=== PATIENT | male | born 1985 | race Caucasian/White ===

== ENCOUNTER 2024-08-21 07:44 | Outpatient (CLI) | payer OTHER, SELFPAY ==
--- OUTSIDE RECORDS SUMMARY | 2024-08-21 07:47 | XMS_ITS | Encounter Summary ---
Author Organization [place] [address] Care Team Providers Care Cook Cashier Food Prep Name Role Phone August England MD Primary Care Provider Reason for Visit * Reason Comments Medication Refill Encounter Details Date Type Department Care Team (Late st Contact Info) Description 07/09/2022 Refill SEP [facility] [address] [facility] [place] [address] August England MD [address] [place] [address] Medication Refill Social History Tobacco Use Types Packs/Day Years Used Date Smoking Tobacco: Never Smokeless Tobacco: Never Alcohol Use Standard Drinks/Week Comments No 0 (1 standard drink = 0.6 oz pur e alcohol) occasional PHQ-2 Answer Date Recorded PHQ-2 Total Score 0 10/25/2021 Sexually Active Control Partners Comments Yes Female Sex and Gender Information Value Date Recorded Sex Assigned at Not on file Legal Sex Male 6:04 PM EDT Gender Identity Not on file Sexual Orientation Not on file documented as of this encounter Functional Status * Is the person deaf or does he/she have serious difficulty hearing? Answer Date of Assessment Author No 10/25/2021 8:56 AM Ar Cano MA * Is the person blind or does he/she have serious difficulty seeing even when wearing glasses? Answer Date of Assessment Author No 10/25/2021 8:56 AM Ar Cano MA * Does this person have serious difficulty walking or climbing stairs? Answer Date of Assessment Author No 10/25/2021 8:56 AM Ar Cano MA * Does this person have difficulty dressing or bathing? Answer Date of Assessment Author No 10/25/2021 8:56 AM Ar Cano MA * Because of a physical, mental or emotional condition, does this person have difficulty doing errands alone such as visiting a doctor's office or shopping? Answer Date of Assessment Author No 10/25/2021 8:56 AM Ar Cano MA documented as of this encounter Mental Status * Because of a physical, mental or emotional condition, does this person have serious difficulty concentrating, remembering or making decisions? Answer Entry Date Author No 10/25/2021 8:56 AM Ar Cano MA documented in this encounter Ordered Prescriptions Prescription Sig Dispense Quantity Refills Last Filled Start Date End Date albuterol (PROVENTIL HFA;VENTOLIN HFA) 90 mcg/actuation Inhl HFA Aerosol InhalerIndications :History of asthma,COVID-19 virus infection INHALE 2 PUFFS INTO THE LUNGS EVERY 4 HOURS NEEDED FOR WHEEZING 6.7 g 07/10/2022 documented in this encounter Plan of Treatment Not on file documented as of this encounter Goals Goal Patient Goal Type Associated Problems Recent Progress Patient-Stated? Author Maintain a healthy diet, exercise regularly and maintain an ideal body weight General Jami Sanhces CMA documented as of this encounter Visit Diagnoses Diagnosis History of asthma Personal history of other diseases of respiratory system COVID-19 virus infection documented in this encounter Discontinued Medications Medication Sig Discontinue Reason Start Date End Da te albuterol (PROVENTIL HFA;VENTOLIN HFA) 90 mcg/actuation Inhl HFA Aerosol InhalerIndications:Hist ory of asthma,COVID-19 virus infection INHALE 2 PUFFS INTO THE LUNGS EVERY 4 HOURS NEEDED FOR WHEEZING 04/22/2022 07/10/2022 documented as of this encounter Care Teams Cook Cashier Food Prep Relationship Specialty Start Date End Date August England MD [address] [place] [address] PCP - General Family Medicine 07/13/19 documented as of this encounter
--- OUTSIDE RECORDS SUMMARY | 2024-08-21 07:47 | XMS_ITS | Encounter Summary ---
Author Organization [place] [address] Care Team Providers Care Printed Circuit Layout Taper Name Role Phone August England MD Primary Care Provider [phone] Reason for Visit * Reason Comments COVID-19 Rapid Testing Encounter Details Date Type Department Care Team (Latest Contact Info) Description 05/29/2021 2:15 PM EDT Clinical Support [facility] [address] [facility] [place] [address] Suzanne Arias, RMA [address] [place] [address] Congestion of throat (Primary Dx) Social History Tobacco Use Types Packs/Day Years Used Date Smoking Tobacco: Never Smokeless Tobacco: Never Alcohol Use Standard Drinks/Week Comments No 0 (1 standard drink = 0.6 oz pur e alcohol) occasional PHQ-2 Answer Date Recorded PHQ-2 Total Score 0 07/10/2020 Sexually Active Control Partners Comments Yes Female Sex and Gender Information Value Date Recorded Sex Assigned at Not on file Legal Sex Male 6:04 PM EDT Gender Identity Not on file Sexual Orientation Not on file COVID-19 Exposure Response Date Recorded In the last month, have you been in contact with someone who was confirmed or suspected to have Coronavirus / COVID-19? Unable to assess 05/29/2021 1:49 PM EDT documented as of this encounter Functional Status * Is the person deaf or does he/she have serious difficulty hearing? Answer Date of Assessment Author No 07/10/2020 1:52 PM EDT Ar Galdamez MA * Is the person blind or does he/she have serious difficulty seeing even when wearing glasses? Answer Date of Assessment Author No 07/10/2020 1:52 PM EDT Ar Galdamez MA * Does this person have serious difficulty walking or climbing stairs? Answer Date of Assessment Author No 07/10/2020 1:52 PM EDT Ar Galdamez MA * Does this person have difficulty dressing or bathing? Answer Date of Assessment Author No 07/10/2020 1:52 PM EDT Ar Galdamez MA * Because of a physical, mental or emotional condition, does this person have difficulty doing errands alone such as visiting a doctor's office or shopping? Answer Date of Assessment Author No 07/10/2020 1:52 PM EDT Ar Galdamez MA documented as of this encounter Mental Status * Because of a physical, mental or emotional condition, does this person have serious difficulty concentrating, remembering or making decisions? Answer Entry Date Author No 07/10/2020 1:52 PM EDT Ar Galdamez MA documented in this encounter Progress Notes * Suzanne Arias RMA - 05/29/2021 2:15 PM EDT [facility] covid testing. Pt tolerated well documented in this encounter Plan of Treatment Not on file documented as of this encounter Goals Goal Patient Goal Type Associated Problems Recent Progress Patient-Stated? Author Maintain a healthy diet, exercise regularly and maintain an ideal body weight General No Jami Glover CMA documented as of this encounter Procedures Procedure Name Priority Date/Time Associated Diagnosis Comments POCT MISHA SARS ANTIGEN Routine 05/29/2021 2:22 PM EDT Congestion of throat documented in this encounter Results * POCT MISHA SARS ANTIGEN (05/29/2021 2:22 PM EDT) [facility] SARS Antigen Negative Negative SEP OFFICE Comment:neg Lot Number [id number] SEP OFFICE Expiration Date SEP OFFICE SeriAl # SEP OFFICE Control Line SEP OFFICE 05/29/2021 2:22 PM EDT us Trista Steele MD POINT OF CARE TEST ORDERAB LES Final Result SEP OFFICE documented in this encounter Visit Diagnoses Diagnosis Congestion of throat- Primary Other symptoms involving head and neck documented in this encounter Care Teams Printed Circuit Layout Taper Relationship Specialty Start Date End Date August England MD [address] [place] [address] PCP - General Family Medicine 07/13/19 documented as of this encounter
--- OUTSIDE RECORDS SUMMARY | 2024-08-21 07:47 | XMS_ITS | Encounter Summary ---
Author Organization [place] [address] Care Team Providers Care Prints And Drawings Curator Name Role Phone August England MD Primary Care Provider [phone] Reason for Visit * Reason Onset Date Comments Other 11/19/2021 Tracking; MRI Encounter Details Date Type Department Care Team (Late Contact Info) Description 11/19/2021 Telephone [facility] [address] [place] [address] Guera Weaver CCMA Other (Tracking; MRI) Social History Tobacco Use Types Packs/Day Years [...] or suspected to have Coronavirus / COVID-19? No / Unsure 10/25/2021 8:49 AM EST documented as of this encounter Functional Status [...] Ar Cano MA documented in this encounter Miscellaneous Notes * Telephone Encounter - Guera Weaver CCMA - 11/19/2021 2:00 PM EST Tracking- MRI LMTCB documented in this encounter Plan of Treatment Not on file documented as of this encounter Goals Goal Patient Goal Type Associated Problems Recent Progress Patient-Stated? Author Maintain a healthy diet, exercise regularly and maintain an ideal body weight General No Jami Glover, KEVIN documented as of this encounter Visit Diagnoses Not on filedocumented in this encounter Care Teams Prints And Drawings Curator Relationship Specialty Start Date End Date August England MD [address] [place] [address] PCP - General Family Medicine 07/13/19 documented as of this encounter
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
--- OUTSIDE RECORDS SUMMARY | 2024-08-21 07:47 | XMS_ITS | Encounter Summary ---
Author Organization [facility] [place] [address] Care Team Providers Care Retort Furnace Helper Name Role Phone August England MD Primary Care Provider [phone] Encounter Details Date Type Department Care Team (Latest Contact Info) Description 07/29/2021 Travel Social History Tobacco Use Types Packs/Day Years [...] 06/17/2021 8:58 AM Liz Darling RMA * Is the person blind or does he/she have serious difficulty seeing even when wearing glasses? Answer Date of Assessment Author No 06/17/2021 8:58 AM Liz Darling RMA * Does this person have serious difficulty walking or climbing stairs? Answer Date of Assessment Author No 06/17/2021 8:58 AM Liz Darling RMA * Does this person have difficulty [...] Liz Darling RMA documented in this encounter Plan of Treatment Not on file documented as of this encounter Goals Goal Patient Goal Type Associated Problems Recent Progress Patient-Stated? Author Maintain a healthy diet, exercise regularly and maintain an ideal body weight General No Jami Glover CMA documented as of this encounter Visit Diagnoses Not on filedocumented in this encounter Additional Health Concerns Infection Onset Date Last Indicated Resolved Time COVID-19 07/22/2021 07/22/2021 08/11/2021 10:1 3 PM EST documented as of this encounter Care Teams Retort Furnace Helper Relationship Specialty Start Date End Date August England MD [address] [place] [address] PCP - General Family Medicine 07/13/19 documented as of this encounter
--- OUTSIDE RECORDS SUMMARY | 2024-08-21 07:47 | XMS_ITS | Encounter Summary ---
Author Organization [place] [address] Care Team Providers Care Prop Sawyer Name Role Phone August England MD Primary Care Provider [phone] Reason for Visit * Reason Comments Medication Refill Encounter Details Date Type Department Care Team (Late st Contact Info) Description 10/16/2021 Refill [facility] [address] [employer] [facility] [place] [address] August England MD [address] [place] [address] Medication Refill Social History Tobacco [...] 8:58 AM EDT Liz Recio RMA * Is the person blind [...] Liz Darling RMA documented in this encounter Ordered Prescriptions Prescription Sig Dispense Quantity Refills Last Filled Start Date End Date albuterol (PROVENTIL HFA;VENTOLIN HFA) 90 mcg/actuation Inhl HFA Aerosol InhalerIndications :History of asthma,COVID-19 virus infection INHALE 2 PUFFS INTO THE LUNGS EVERY 4 HOURS NEEDED FOR WHEEZING 8.5 g 10/17/2021 documented in this encounter Plan of Treatment [...] LUNGS EVERY 4 HOURS NEEDED FOR WHEEZING 08/28/2021 10/17/2021 documented as of this encounter Care Teams Prop Sawyer Relationship Specialty Start Date End Date August England MD [address] [place] [address] PCP - General Family Medicine 07/13/19 documented as of this encounter
--- OUTSIDE RECORDS SUMMARY | 2024-08-21 07:47 | XMS_ITS | Encounter Summary ---
Author Organization [place] [address] Care Team Providers Care Employment Trainer Name Role Phone August England MD Primary Care Provider [phone] Reason for Visit * Reason Comments Medication Refill Encounter Details Date Type Department Care Team (Late st Contact Info) Description 04/22/2022 Refill SEP [facility] [address] [facility] [place] [address] August England MD [address] [place] [address] Medication Refill Social History Tobacco [...] 4 HOURS NEEDED FOR WHEEZING 6.7 g 04/22/2022 documented in this encounter Plan of Treatment [...] LUNGS EVERY 4 HOURS NEEDED FOR WHEEZING 02/27/2022 04/22/2022 documented as of this encounter Care Teams Employment Trainer Relationship Specialty Start Date End Date August England MD [address] [place] [address] PCP - General Family Medicine 07/13/19 documented as of this encounter
--- OUTSIDE RECORDS SUMMARY | 2024-08-21 07:47 | XMS_ITS | Encounter Summary ---
Author Organization [place] [address] Care Team Providers Care Plater Supervisor Name Role Phone August England MD Primary Care Provider [phone] Encounter Details Date Type Department Care Team (Latest Contact Info) Description 05/20/2021 12:45 PM EDT Telemedicine [facility] [address] [facility] [place] [address] August England MD [address] [place] [address] Cough (Primary Dx); Chest congestion; Diarrhea of presumed infectious origin; Close exposure to COVID-19 virus; Class 3 severe obesity due to excess calories without serious comorbidity with body mass index (BMI) of 40.0 to 44.9 in adult (HCC) Social History Tobacco Use Types Packs/Day [...] Progress Notes * August England MD - 05/20/2021 12:45 PM EDT Patient presented today for routine care follow-up through a video visit. Patient has reviewed the terms and conditions of service as part of the registration for today's visit. A video visit does not replace a cqaq-lm-usvi exam and further services may be necessary. We are conducting his video visit in a private space and this video visit is being conducted in accordance with state telehealth/video visit regulations. HPI: Cough, chest congestion, diarrhea Fever Chills Body aches Has some loss of taste Symptoms began on 05/17 Unvaccinated for COVID His likely has COVID Review of Systems All other systems reviewed and are negative. Exam: Constitutional: NAD, appropriately groomed. Appears comfortable. HENT: No gross deformities. Voice normal. No facial swelling noted. Eyes: Extra occular movements grossly intact. Visible portions of the eyes appear normal. No redness or discharge visible via casual video inspection. Cardiopulmonary: Does not appear in cardiopulmonary distress. Easy respirations w/o labored breathing. No audible gross wheezing or breathlessness. Neuro: Alert and oriented. Conversational. No gross deficits or facial droop appreciated on video evaluation. Psych: Appropriate mood and affect. Normal conversation and thought content. Assessment Diagnoses and all orders for this visit: Cough Chest congestion Diarrhea of presumed infectious origin Close exposure to COVID-19 virus Class 3 severe obesity due to excess calories without serious comorbidity with body mass index (BMI) of 40.0 to 44.9 in adult (HCC) (Chronic) Will have pt come to office for rapid COVID test If positive, will need to quarantine for 10 days, would be interested in monoclonal antibody treatment, unvaccinated We discussed proceeding with the vaccine, if negative, can pursue POPPY, if positive, will wait 90 days. If his symptoms were to progress, especially significant sob or cps, to ER documented in this encounter Plan of Treatment Not on file documented as of this encounter Goals Goal Patient Goal Type Associated Problems Recent Progress Patient-Stated? Author Maintain a healthy diet, exercise regularly and maintain an ideal body weight General No Jami Glover, SECTION LEADER AND MACHINE SETTER documented as of this encounter Visit Diagnoses Diagnosis Cough- Primary Chest congestion Other symptoms involving respiratory system and chest Diarrhea of presumed infectious origin Close exposure to COVID-19 virus Class 3 severe obesity due to excess calories without serious comorbidity with body mass index (BMI) of 40.0 to 44.9 in adult ([facility]) documented in this encounter Discontinued Medications Medication Sig Discontinue Reason Start Date End Da te doxycycline (MONODOX) 100 mg Oral CapsuleIndications:Cough Take 1 Cap by mouth 2 times daily. Cancelled by 12/11/2019 05/20/2021 azithromycin (ZITHROMAX Z-LYNNE) 250 mg Oral TabletIndications:Acute bacterial sinusitis 2 tabs by mouth daily for 3 days Cancelled by 12/06/2019 05/20/2021 documented as of this encounter Care Teams Plater Supervisor Relationship Specialty Start Date End Date August England MD [address] [place] [address] PCP - General Family Medicine 07/13/19 documented as of this encounter
--- OUTSIDE RECORDS SUMMARY | 2024-08-21 07:47 | XMS_ITS | Encounter Summary ---
Author Organization [place] [address] Care Team Providers Care Sales And Marketing Engineer Name Role Phone August England MD Primary Care Provider [phone] Reason for Visit * Reason Comments Medication Refill Encounter Details Date Type Department Care Team (Late st Contact Info) Description 02/27/2022 Refill SEP [facility] [address] [facility] [place] [address] August England MD [address] [place] [address] Medication Refill Social History Tobacco [...] 4 HOURS NEEDED FOR WHEEZING 8.5 g 02/27/2022 documented in this encounter Plan of Treatment [...] LUNGS EVERY 4 HOURS NEEDED FOR WHEEZING 10/17/2021 02/27/2022 documented as of this encounter Care Teams Sales And Marketing Engineer Relationship Specialty Start Date End Date August England MD [address] [place] [address] PCP - General Family Medicine 07/13/19 documented as of this encounter
--- OUTSIDE RECORDS SUMMARY | 2024-08-21 07:47 | XMS_ITS | Encounter Summary ---
Author Organization [place] [address] Care Team Providers Care Burial Vault Setter Name Role Phone August England MD Primary Care Provider [phone] Encounter Details Date Type Department Care Team (Late st Contact Info) Description 07/22/2021 10:15 AM EDT Telemedicine [facility] [address] [facility] [place] [address] Shanelle Barlow, DELIVERY CREW WORKER [address] [place] [address] Exposure to COVID-19 virus (Primary Dx); Cough; Tired Social History Tobacco Use Types Packs/Day Years [...] Refills Last Filled Start Date End Date predniSONE (DELTASONE) 20 mg Oral TabletIndications: Cough Take 2 Tablets by mouth daily for 5 days. 10 Tablet 07/22/2021 documented in this encounter Progress Notes * Shanelle Barlow, LIDA - 07/22/2021 10:15 AM EDT Patient presented today for routine care follow-up through a video visit. Patient has reviewed the terms and conditions of service as part of the registration for today's visit. A video visit does not replace a pqgs-kw-swub exam and further services may be necessary. We are conducting his video visit in a private space and this video visit is being conducted in accordance with state telehealth/video visit regulations. HPI: States significant other tested positive for covid. States now having cough and congestion. States tired. Yesterday with headache. Would like to get tested. Symptoms started yesterday. Review of Systems Constitutional: Positive for fatigue. HENT: Positive for congestion. Respiratory: Positive for cough. Exam: Constitutional: NAD, appropriately groomed. Appears comfortable. [...] Diagnoses and all orders for this visit: Exposure to COVID-19 virus - CORONAVIRUS 2019; Future Cough - predniSONE (DELTASONE) 20 mg Oral Tablet; Take 2 Tablets by mouth daily for 5 days. Dispense: 10 Tablet; Refill: 0 - CORONAVIRUS 2019; Future Tired - CORONAVIRUS 2019; Future documented in this encounter Plan of Treatment Not on file documented as of this encounter Goals Goal Patient Goal Type Associated Problems Recent Progress Patient-Stated? Author Maintain a healthy diet, exercise regularly and maintain an ideal body weight General No Jami Glover, CAVALRY SCOUT documented as of this encounter Results * (ABNORMAL) CORONAVIRUS 2019 (07/22/2021 3:11 PM EDT) [facility] Signature CORONAVIRUS [id number] Detected( A) Not Detected 07/23/2021 12:08 PM EDT [employer] Comment: This test is a nucleic acid amplification test intended for the qualitative detection of nucleic acid from the SARS-CoV-2 in upper respiratory samples collected from individuals suspected of COVID-19. Test is performed on the [employer] platform under the FDA's Emergency Use Authorization (EUA). [employer] Provider Fact Sheet: https://www.fda.gov/media/754452/download [employer] Patient Fact Sheet: ??https://www.fda.gov/media/867262/download Performed at [facility] [address] [place] [address]. [address] CLIA [id number] Swab BOTH ANTERIOR NARES / Unknown 07/22/2021 3:11 PM EDT 07/22/2021 3:11 PM EDT us Shanelle Marroquin Cain DELIVERY CREW WORKER MICROBIOLOGY - GENERAL OR DERABLES Final Result PREFERRED LAB [employer] [employer] [address] [facility] , [address] [place] [address] documented in this encounter Visit Diagnoses Diagnosis Exposure to COVID-19 virus- Primary Cough Tired Other malaise and fatigue documented in this encounter Additional Health Concerns Infection Onset Date Last Indicated Resolved Time R/O COVID-19 07/22/2021 07/22/2021 07/23/2021 12:0 8 PM EDT documented as of this encounter Care Teams Burial Vault Setter Relationship Specialty Start Date End Date August England MD [address] [place] [address] PCP - General Family Medicine 07/13/19 documented as of this encounter
--- OUTSIDE RECORDS SUMMARY | 2024-08-21 07:47 | XMS_ITS | Encounter Summary ---
Author Organization [place] [address] Care Team Providers Care Steel Checker Name Role Phone August England MD Primary Care Provider Reason for Visit * Reason Comments Medication Refill Encounter Details Date Type Department Care Team (Late st Contact Info) Description 05/07/2021 Refill SEP [facility] [address] [facility] [place] [address] August England MD [address] [place] [address] Medication Refill Social History Tobacco [...] Ar Galdamez MA documented in this encounter Ordered Prescriptions Prescription Sig Dispense Quantity Refills Last Filled Start Date End Date albuterol (PROVENTIL HFA;VENTOLIN HFA) 90 mcg/actuation Inhl HFA Aerosol InhalerIndications :History of asthma INHALE 2 PUFFS INTO THE LUNGS EVERY 4 HOURS NEEDED FOR WHEEZING 8.5 g 05/07/2021 documented in this encounter Plan of Treatment Not on file documented as of this encounter Goals Goal Patient Goal Type Associated Problems Recent Progress Patient-Stated? Author Maintain a healthy diet, exercise regularly and maintain an ideal body weight General No Jami Glover CMA documented as of this encounter Visit Diagnoses Diagnosis History of asthma Personal history of other diseases of respiratory system documented in this encounter Discontinued Medications Medication Sig Discontinue Reason Start Date End Da te albuterol (PROVENTIL HFA;VENTOLIN HFA) 90 mcg/actuation Inhl HFA Aerosol InhalerIndications:Hist ory of asthma INHALE 2 PUFFS INTO THE LUNGS EVERY 4 HOURS NEEDED FOR WHEEZING 12/05/2020 05/07/2021 documented as of this encounter Care Teams Steel Checker Relationship Specialty Start Date End Date August England MD [address] [place] [address] PCP - General Family Medicine 07/13/19 documented as of this encounter
--- OUTSIDE RECORDS SUMMARY | 2024-08-21 07:47 | XMS_ITS | Encounter Summary ---
Author Organization [place] [address] Care Team Providers Care Manager Intensive Care Name Role Phone August England MD Primary Care Provider [phone] Encounter Details Date Type Department Care Team (Latest Contact Info) Description 10/25/2021 9:22 AM EST - 10/25/2021 11:59 PM EST Hospital Encounter G[facility] X[facility] [address] [place], [place] [id number] Injury of left knee, initial encounter Discharge Disposition: Home or Self Care Social History Tobacco Use Types Packs/Day Years [...] of Assessment Author No 10/25/2021 8:56 AM EST Ar Galdamez MA * Is the person [...] Ar Cano MA documented in this encounter Medications at Time of Discharge albuterol (PROVENTIL HFA;VENTOLIN HFA) 90 mcg/actuation Inhl HFA Aerosol InhalerIndicatio ns:History of asthma,COVID-19 virus infection INHALE 2 PUFFS INTO THE LUNGS EVERY 4 HOURS NEEDED FOR WHEEZING 8.5 g 10/17/2021 02/27/2022 documented as of this encounter Discharge Disposition Disposition Code Departure Means Destination Home or Self Care documented in this encounter Plan of Treatment Not on file documented as of this encounter Goals Goal Patient Goal Type Associated Problems Recent Progress Patient-Stated? Author Maintain a healthy diet, exercise regularly and maintain an ideal body weight General No Jami Glover CMA documented as of this encounter Procedures Procedure Name Priority Date/Time Associated Diagnosis Comments XR KNEE LEFT AP LAT INT EXT OBLIQUES AND SUNRISE Routine 10/25/2021 9:43 AM EST Injury of left knee, initial encounter documented in this encounter Results * XR KNEE LEFT AP LAT INT EXT OBLIQUES AND SUNRISE (10/25/2021 9:43 AM EST) Anatomical Region Laterality Modality Knee Radiographic Linda ging 10/25/2021 9:43 AM EST Impressions 10/25/2021 10:06 AM EST 1. No acute fracture or malalignment.. 2. Suggestion attenuation of the quadriceps tendon. Please correlate with extensor mechanism function and if there is concern for quadriceps tendon tear, MRI is recommended in follow-up. - Note: Radiology results need to be interpreted within a comprehensive clinical context. ??If you have questions about the radiology report, please contact the office of the ordering clinician. Narrative 10/25/2021 10:06 AM EST XR KNEE LEFT AP LAT INT EXT OBLIQUES AND SUNRISE, ??10/25/2021 9:43 AM CLINICAL HISTORY: ??S89.92XA-Unspecified injury of left lower leg, initial [id number] COMPARISON: ??None. PROCEDURE COMMENTS: XR KNEE LEFT AP LAT INT EXT OBLIQUES AND SUNRISE FINDINGS: No evidence of fracture or femorotibial malalignment. Query hypoattenuation of the quadriceps tendon with regional suprapatellar recess fluid. Femorotibial joint spaces are maintained. Moderate patellofemoral degenerative changes. Procedure Note Orville Cheng MD - 10/25/2021 XR KNEE LEFT AP LAT INT EXT OBLIQUES AND SUNRISE, 10/25/2021 9:43 AM CLINICAL HISTORY: S89.92XA-Unspecified injury of left lower leg,initial [id number] COMPARISON: None. PROCEDURE COMMENTS: XR KNEE LEFT AP LAT INT EXT OBLIQUES AND SUNRISE FINDINGS: No evidence of fracture or femorotibial malalignment. Query hypoattenuation of the quadriceps tendon with regional suprapatellarrecess fluid. Femorotibial joint spaces are maintained. Moderate patellofemoral degenerative changes. IMPRESSION: 1. No acute fracture or malalignment.. 2. Suggestion attenuation of the quadriceps tendon. Please correlatewith extensor mechanism function and if there is concern for quadriceps tendontear, MRI is recommended in follow-up. - Note: Radiology results need to be interpreted within a comprehensiveclinical context. If you have questions about the radiology report, please contactthe office of the ordering clinician. us Trista Steele MD IMG DIAGNOSTIC IMAGING ORD ERABLES Final Result documented in this encounter Visit Diagnoses Diagnosis Injury of left knee, initial encounter documented in this encounter Care Teams Manager Intensive Care Relationship Specialty Start Date End Date August England MD [address] [place] [id number] PCP - General Family Medicine 07/13/19 documented as of this encounter
--- OUTSIDE RECORDS SUMMARY | 2024-08-21 07:47 | XMS_ITS | Encounter Summary ---
Author Organization [place] [address] Care Team Providers Care Partition Assembly Machine Operator Name Role Phone August England MD Primary Care Provider [phone] Reason for Referral * Consultation (Routine) - Pending Review Specialty Diagnoses / Procedures Referred By Jazmine patterson Referred To Contact Sleep [facility] Diagnoses Snoring Witnessed episode of apnea Restless sleeper August England MD [address] [place] [address] Phone: tel: fax: [facility] [place] [address] [place] [address] Phone: tel: fax: Referral ID Status Reason Start Date Expiration Date V isits Requested Visits Authorized [id number] Pending Review 10/14/2023 10/13/2024 99 99 Question Answer What test needs to be performed? Appropriate testing as determined by sleep specialist/sleep medicine protocols Reason for Visit * Reason Comments Otalgia fluid and pain rt ea r x 2days Sore Throat exposed to strep Encounter Details Date Type Department Care Team (Latest Contact Info) Description 10/14/2023 7:45 AM EST Office Visit SEP [facility] [address] [place] [address] August England MD [address] [place] [address] Sore throat (Primary Dx); Non-recurrent acute serous otitis media of both ears; Acute bacterial sinusitis; Snoring; Witnessed episode of apnea; Restless sleeper Social History Tobacco Use Types Packs/Day Years [...] on file documented as of this encounter Last Filed Vital Signs Vital Sign Reading Time Taken Comments Blood Pressure 132/94 10/14/2023 7:44 AM EST Pulse 91 10/14/2023 7:44 AM EST Temperature 36.5 ??C (97.7 ??F) 10/14/2023 7:44 AM ES T Respiratory Rate - - Oxygen Saturation 96% 10/14/2023 7:44 AM EST Inhaled Oxygen Concentration - - Weight 136.5 kg (301 lb) 10/14/2023 7:44 AM EST Height 180.3 cm (5' 11 ) 10/14/2023 7:44 AM EST Body Mass Index 41.98 10/14/2023 7:44 AM EST documented in this encounter Functional Status * [...] Refills Last Filled Start Date End Date doxycycline monohydrate (MONODOX) 100 mg Oral CapsuleIndications :Non-recurrent acute serous otitis media of both ears,Acute bacterial sinusitis Take 1 Capsule by mouth 2 times daily for 10 days. 20 Capsule 10/14/2023 documented in this encounter Progress Notes * August England MD - 10/14/2023 7:45 AM EST Assessment Diagnoses and all orders for this visit: Sore throat - POCT RAPID STREP A Non-recurrent acute serous otitis media of both ears - doxycycline monohydrate (MONODOX) 100 mg Oral Capsule; Take 1 Capsule by mouth 2 times daily for 10 days. Dispense: 20 Capsule; Refill: 0 Acute bacterial sinusitis - doxycycline monohydrate (MONODOX) 100 mg Oral Capsule; Take 1 Capsule by mouth 2 times daily for 10 days. Dispense: 20 Capsule; Refill: 0 Snoring - AMB REFERRAL TO SLEEP STUDIES/MEDICINE Witnessed episode of apnea - AMB REFERRAL TO SLEEP STUDIES/MEDICINE Restless sleeper - AMB REFERRAL TO SLEEP STUDIES/MEDICINE Progress Note: Vitals: 10/14/23 0744 BP: 132/94 Pulse: 91 Temp: 97.7 ??F (36.5 ??C) TempSrc: Forehead SpO2: 96% Weight: (!) 301 lb (136.5 kg) Height: 5' 11 (1.803 m) Body mass index is 41.98 kg/m??. SUBJECTIVE: Chief Complaint Patient presents with ??? Otalgia fluid and pain rt ear x 2days ??? Sore Throat exposed to strep HPI: ST x 5 days, [place], now R ear pain Exposed to strep Snores, wakes up frequently, says stops breathing at night Review of Systems All other systems reviewed and are negative. OBJECTIVE: Physical Exam Vitals and nursing note reviewed. Constitutional: General: He is not in acute distress. Appearance: Normal appearance. He is well-developed and normal weight. He is not ill-appearing. HENT: Head: Normocephalic. Right Ear: Tympanic membrane, ear canal and external ear normal. Left Ear: Tympanic membrane, ear canal and external ear normal. Ears: Comments: BOM Nose: Congestion and rhinorrhea present. Mouth/Throat: Mouth: Mucous membranes are moist. Pharynx: No oropharyngeal exudate (pnd, nasal discharge). Eyes: General: No scleral icterus. Extraocular Movements: Extraocular movements intact. Conjunctiva/sclera: Conjunctivae normal. Pupils: Pupils are equal, round, and reactive to light. Cardiovascular: Rate and Rhythm: Normal rate and regular rhythm. Pulses: Normal pulses. Heart sounds: Normal heart sounds. Pulmonary: Effort: Pulmonary effort is normal. Breath sounds: Normal breath sounds. Abdominal: General: Bowel sounds are normal. Palpations: Abdomen is soft. Tenderness: There is no abdominal tenderness. Musculoskeletal: Cervical back: Normal range of motion and neck supple. Lymphadenopathy: Cervical: No cervical adenopathy. Neurological: General: No focal deficit present. Mental Status: He is alert. Mental status is at baseline. Psychiatric: Mood and Affect: Mood normal. Behavior: Behavior normal. documented in this encounter Plan of Treatment Scheduled Referrals Name Type Priority Associated Diagnoses Orde r Schedule AMB REFERRAL TO SLEEP STUDIES/MEDICINE Outpatient Referral Routine Snoring Witnessed episode of apnea Restless sleeper Ordered: 10/14/2023 documented as of this encounter Goals Goal Patient Goal Type Associated Problems Recent Progress Patient-Stated? Author Maintain a healthy diet, exercise regularly and maintain an ideal body weight General No Jami Glover CMA documented as of this encounter Procedures Procedure Name Priority Date/Time Associated Diagnosis Comments POCT RAPID STREP A Routine 10/14/2023 7: 56 AM EST Sore throat documented in this encounter Results * POCT RAPID STREP A (10/14/2023 7:56 AM EST) Strep A Ag None Detected None Detected Pos/Neg SEP OFFICE Lot Number [id number] SEP OFFICE Expiration Date 03/03/2025 SEP OFFICE SeriAl # SEP OFFICE Control Line Yes YES/NO SEP OFFICE 10/14/2023 7:56 AM EST August England MD POINT OF CARE TEST ORDERABLES Final Result SEP OFFICE documented in this encounter Visit Diagnoses Diagnosis Sore throat- Primary Acute pharyngitis Non-recurrent acute serous otitis media of both ears Acute bacterial sinusitis Acute sinusitis, unspecified Snoring Other dyspnea and respiratory abnormality Witnessed episode of apnea Restless sleeper Sleep disturbance, unspecified documented in this encounter Care Teams Partition Assembly Machine Operator Relationship Specialty Start Date End Date August England MD [address] [place] [address] PCP - General Family Medicine 07/13/19 documented as of this encounter
--- OUTSIDE RECORDS SUMMARY | 2024-08-21 07:47 | XMS_ITS | Encounter Summary ---
Author Organization [place] [address] Care Team Providers Care Heavy Equipment Mechanic Name Role Phone August England MD Primary Care Provider [phone] Reason for Visit * Reason Comments Other Covid PCR Encounter Details Date Type Department Care Team (Latest Contact Info) Description 07/22/2021 2:15 PM EDT Clinical Support [facility] [address] [facility] [place] [id number] Liz Recio RMA Exposure to COVID-19 virus; Cough; Tired Social History Tobacco Use Types [...] Assessment Author No 06/17/2021 8:58 AM EDT Recio , Liz Lynne, RMA * Does this person have serious difficulty walking or climbing stairs? Answer Date of Assessment Author No 06/17/2021 8:58 AM EDT Liz Recio RMAr * Does this person have difficulty dressing or bathing? Answer Date of Assessment Author No 06/17/2021 8:58 AM EDT Liz Recio AMADEO * Because of a physical, mental or emotional condition, does this person have difficulty doing errands alone such as visiting a doctor's office or shopping? Answer Date of Assessment Author No 06/17/2021 8:58 AM EDT Liz Recio AMADEO documented as of this encounter Mental Status * Because of a physical, mental or emotional condition, does this person have serious difficulty concentrating, remembering or making decisions? Answer Entry Date Author No 06/17/2021 8:58 AM EDT Liz Recio AMADEO documented in this encounter Plan of Treatment Not on file documented as of this encounter Goals Goal Patient Goal Type Associated Problems Recent Progress Patient-Stated? Author Maintain a healthy diet, exercise regularly and maintain an ideal body weight General No Jami Glover, RENTAL SALES AGENT documented as of this encounter Procedures Procedure Name Priority Date/Time Associated Diagnosis Comments CORONAVIRUS 2019 Routine 07/22/2021 3:11 PM EDT Exposure to COVID-19 virus Cough Tired documented in this encounter Results * (ABNORMAL) CORONAVIRUS 2019 (07/22/2021 3:11 PM EDT) CORONAVIRUS [id number] Detected( A) Not Detected 07/23/2021 12:08 PM EDT [facility] Comment: This test is a nucleic acid amplification test intended for the qualitative detection of nucleic acid from the SARS-CoV-2 in upper respiratory samples collected from individuals suspected of COVID-19. Test is performed on the [employer] platform under the FDA's Emergency Use Authorization (EUA). [employer] Provider Fact Sheet: https://www.fda.gov/media/261327/download [employer] Patient Fact Sheet: ??https://www.fda.gov/media/507741/download Performed at [facility] [address] [place] [address]. [address] [facility] [id number] Swab BOTH ANTERIOR NARES / Unknown 07/22/2021 3:11 PM EDT 07/22/2021 3:11 PM EDT Shanelle Marroquin Cain SPIRITUAL CARE COORDINATOR MICROBIOLOGY - GENERAL OR DERABLES Final Result Performing Organization Address City/State/[facility] Co de Phone Number [facility] [employer], [employer] [address] [facility] , [address] [place] [id number] documented in this encounter Visit Diagnoses Diagnosis Exposure to COVID-19 virus Cough Tired Other malaise and fatigue documented in this encounter Additional Health Concerns Infection Onset Date Last Indicated Resolved Time R/O COVID-19 07/22/2021 07/22/2021 07/23/2021 12:0 8 PM EDT documented as of this encounter Care Teams Heavy Equipment Mechanic Relationship Specialty Start Date End Date August England MD [address] [place] [id number] PCP - General Family Medicine 07/13/19 documented as of this encounter
--- OUTSIDE RECORDS SUMMARY | 2024-08-21 07:47 | XMS_ITS | Clinical Summary ---
Author Organization [facility] Address [place] [address] Phone Care Team Providers Care Machine Assistant Name Role Phone August England MD Primary Care Provider [phone] Allergies Active Allergy Reactions Criticality Noted Date Comments Diphenhydramine Hcl Itching Medium 10/31/2012 Cefaclor 04/15/2011 Penicillins 04/15/2011 Medications * This document contains information received from the source organization and may not represent a complete record from that organization. albuterol (PROVENTIL HFA;VENTOLIN HFA) 90 mcg/actuation Inhl HFA Aerosol InhalerIndicati ons:History of asthma,COVID-19 virus infection INHALE 2 PUFFS INTO THE LUNGS EVERY 4 HOURS NEEDED FOR WHEEZING 6.7 g 07/10/2022 Active sildenafiL (VIAGRA) 100 mg Oral TabletIndicatio ns:ED (erectile dysfunction) of non-organic origin Take 0.5-1 Tablets by mouth daily as needed for Erectile Dysfunction. 6 Tablet 12 11/02/2023 Active Active Problems Problem Noted Date Diagnosed Date ED (erectile dysfunction) of non-organic origin 11/02/2023 ADHD 10/14/2023 Witnessed episode of apnea 06/17/2021 Snoring 06/17/2021 MDD (major depressive disord er), recurrent episode, moderate 06/17/2021 Class 3 severe obesity due t o excess calories without serious comorbidity with body mass index (BMI) of 40.0 to 44.9 in adult 05/20/2021 History of asthma 07/10/2020 PTSD (post-traumatic stress disorder) 10/23/2014 Meningitis TBI (traumatic brain injury) Resolved Problems Problem Noted Date Diagnosed Date Resolved Date Close exposure to COVID-19 virus 05/20/2021 06/17/2021 Diarrhea of presumed infectious origin 05/20/2021 06/17/2021 Chest congestion 05/20/2021 06/17/2021 Cough 05/20/2021 06/17/2021 Major depression 06/17/2021 Immunizations Name Administration Dates Next Due Anthrax 12/06/2007, 7,03/17/2007,03/03 Hep A/Hep B 07/16/2006 Hepatitis A, Adult 12/15/2007,01/09/2007 Hepatitis B, Adult 12/15/2007,01/09/2007 IPV 07/16/2006 Influenza Patient Reported 11/10/2011,08/11/2008 ,07/23/2008 Influenza, Live, Intranasal 08/16/2007, 6 Meningococcal Conjugate 07/16/2006 Pneumococcal Conjugate Vacci ne 20 Valent 11/10/2011 Pneumococcal Patient Reported 11/10/2011 Smallpox 03/17/2007 Td (Adult), Absorbed 09/23/1999 Td, Unspecified Formulation 05/28/2007 Tdap 07/16/2006 Typhoid, Unspecified Formulation 03/03/2007 Medical History Medical History Date Comments Asthma Meningitis Seizures (HCC) fibril seizuers PTSD (post-traumatic stress disorder) TBI (traumatic brain injury) (HCC) History of asthma 07/10/2020 Social History Tobacco Use Types Packs/Day Years Used Date Smoking Tobacco: Never Smokeless Tobacco: Never Tobacco Cessation:Counseling Given: Not Answered Alcohol Use Standard Drinks/Week Comments No 0 (1 standard drink = 0.6 oz pur e alcohol) occasional PHQ-2 Answer Date Recorded PHQ-2 Total Score 0 10/25/2021 Sexually Active Control Partners Comments Yes Female Sex and Gender Information Value Date Recorded Sex Assigned at Not on file Legal Sex Male 6:04 PM EDT Gender Identity Not on file Sexual Orientation Not on file Obstetrics History Last Filed Vital Signs Vital Sign Reading Time Taken Comments Blood Pressure 158/88 11/02/2023 7:35 AM EST Pulse 88 11/02/2023 7:35 AM EST Temperature 36.7 ??C (98.1 ??F) 11/02/2023 7:35 AM ES T Respiratory Rate 23 03/30/2019 5:13 AM EDT Oxygen Saturation 97% 11/02/2023 7:35 AM EST Inhaled Oxygen Concentration - - Weight 136.1 kg (300 lb) 11/02/2023 7:35 AM EST Height 180.3 cm (5' 11 ) 11/02/2023 7:35 AM EST Body Mass Index 41.84 11/02/2023 7:35 AM EST Plan of Treatment Health Maintenance Due Date Last Done Comments Annual Wellness Exam 1987 DTaP/TDaP/Td (4 - Td or Tdap) 05/28/2017 05/28/2007, 07/16/2006, 09/23/1999 COVID-19 Vaccine ( season) 2024 Influenza Vaccine (#1) 2024 2, 08/11/2008, 07/23/2008, Additional history exists Hepatitis B Vaccine Completed 12/15/2007, 01/09/2007, 07/16/2006 Pneumococcal Vaccine 0-64 Aged Out 11/10/2011 No longer eligible based on patient's age to complete this topic Goals Goal Patient Goal Type Associated Problems Recent Progress Patient-Stated? Author Maintain a healthy diet, exercise regularly and maintain an ideal body weight General No Jami Glover, [facility] Insurance [facility] CHOICE PLUS [address] AUTO INSURANCE AA Pamela [address] CHOICE PLUS [address] CHOICE PLUS Advance Directives For more information, please contact: [phone] * Full Code (Latest Code Status on File) Date Activated Date Inactivated Comments 10/24/2014 10:53 AM 10/24/2014 10:25 PM Care Teams Machine Assistant Relationship Specialty Start Date End Date August England MD [address] [place] [id number] PCP - General Family Medicine 07/13/19
--- OUTSIDE RECORDS SUMMARY | 2024-08-21 07:47 | XMS_ITS | Encounter Summary ---
Author Organization [facility] [place] [place] [address] Care Team Providers Care Major Assembly Inspector Name Role Phone August England MD Primary Care Provider [phone] Encounter Details Date Type Department Care Team (Latest Contact Info) Description 05/29/2021 Travel Social History Tobacco Use Types Packs/Day [...] of Assessment Author No 07/10/2020 1:52 PM MICHAELT Ar Galdamez MA * Because of a physical, mental or emotional condition, does this person have difficulty doing errands alone such as visiting a doctor's office or shopping? Answer Date of Assessment Author No 07/10/2020 1:52 PM MICHAELT Ar Galdamez MA documented as of this encounter Mental Status * Because of a physical, mental or emotional condition, does this person have serious difficulty concentrating, remembering or making decisions? Answer Entry Date Author No 07/10/2020 1:52 PM Ar Norman MA documented in this encounter Plan of Treatment Not on file documented as of this encounter Goals Goal Patient Goal Type Associated Problems Recent Progress Patient-Stated? Author Maintain a healthy diet, exercise regularly and maintain an ideal body weight General No Jami Glover CMA documented as of this encounter Visit Diagnoses Not on filedocumented in this encounter Care Teams Major Assembly Inspector Relationship Specialty Start Date End Date August England MD [address] [place] [address] PCP - General Family Medicine 07/13/19 documented as of this encounter
--- OUTSIDE RECORDS SUMMARY | 2024-08-21 07:47 | XMS_ITS | Encounter Summary ---
Author Organization [place] [address] Care Team Providers Care Thoroughbred Horse Farm Manager Name Role Phone August England MD Primary Care Provider Reason for Visit * Reason Comments Other covid rapid Encounter Details Date Type Department Care Team (Latest Contact Info) Description 05/20/2021 3:00 PM EDT Clinical Support [facility] [address] [facility] [place] [address] Suzanne Arias, RMA [address] [place] [address] Congestion of nasal sinus (Primary Dx) Social History Tobacco Use Types [...] have Coronavirus / COVID-19? Unable to assess 05/20/2021 2:51 PM EDT documented as of this encounter [...] Ar Galdamez MA documented in this encounter Plan of Treatment Not on file documented as of this encounter Goals Goal Patient Goal Type Associated Problems Recent Progress Patient-Stated? Author Maintain a healthy diet, exercise regularly and maintain an ideal body weight General No Jami Glover CMA documented as of this encounter Procedures Procedure Name Priority Date/Time Associated Diagnosis Comments POCT MISHA SARS ANTIGEN Routine 05/20/2021 3:22 PM EDT Congestion of nasal sinus documented in this encounter Results * POCT MISHA SARS ANTIGEN (05/20/2021 3:22 PM EDT) SARS Antigen Negative Negative SEP OFFICE Comment:neg Lot Number [id number] SEP OFFICE Expiration Date SEP OFFICE SeriAl # SEP OFFICE Control Line SEP OFFICE 05/20/2021 3:22 PM EDT us August England MD POINT OF CARE TEST ORDERABLES Final Result SEP OFFICE documented in this encounter Visit Diagnoses Diagnosis Congestion of nasal sinus- Primary Other diseases of nasal cavity and sinuses documented in this encounter Care Teams Thoroughbred Horse Farm Manager Relationship Specialty Start Date End Date August England MD [address] [place] [address] PCP - General Family Medicine 07/13/19 documented as of this encounter
--- OUTSIDE RECORDS SUMMARY | 2024-08-21 07:47 | XMS_ITS | Encounter Summary ---
Author Organization [facility] [address] Care Team Providers Care Manual Arts Therapist Name Role Phone August England MD Primary Care Provider Encounter Details Date Type Department Care Team (Latest Contact Info) Description 05/20/2021 Travel Social History Tobacco Use Types Packs/Day [...] on filedocumented in this encounter Care Teams Manual Arts Therapist Relationship Specialty Start Date End Date August England MD [address] [place] [address] PCP - General Family Medicine 07/13/19 documented as of this encounter
--- OUTSIDE RECORDS SUMMARY | 2024-08-21 07:47 | XMS_ITS | Encounter Summary ---
Author Organization [place] [address] Care Team Providers Care Paint Mixer Machine Name Role Phone August England MD Primary Care Provider [phone] Reason for Referral * MRI/CAT Scan (Routine) - Closed Specialty Diagnoses / Procedures Referred By Jazmine patterson Referred To Contact Radiology Diagnoses Injury of left knee, initial encounter Instability of left knee joint Procedures MRI KNEE LEFT WO CONTRAST Trista Steele MD [address] [place] [address] Phone: tel: fax: Referral ID Status Reason Start Date Expiration Date Visits Re quested Visits Authorized [id number] Closed 10/25/2021 10/25/2022 1 1 Reason for Visit * Reason Comments Knee Pain left knee Encounter Details Date Type Department Care Team (Late st Contact Info) Description 10/25/2021 8:45 AM EST Office Visit SEP [facility] [address] [facility] [place] [address] Trista Steele MD [address] [place] [address] Injury of left knee, initial encounter (Primary Dx); Acute pain of left knee; Instability of left knee joint Social History Tobacco Use Types Packs/Day Years [...] AM EST documented as of this encounter Last Filed Vital Signs Vital Sign Reading Time Taken Comments Blood Pressure 142/90 10/25/2021 8:57 AM EST Pulse 102 10/25/2021 8:57 AM EST Temperature 36.3 ??C (97.4 ??F) 10/25/2021 8:57 AM ES T Respiratory Rate - - Oxygen Saturation 97% 10/25/2021 8:57 AM EST Inhaled Oxygen Concentration - - Weight - - Height 176.5 cm (5' 9.5 ) 10/25/2021 8:57 AM EST Body Mass Index - - documented in this encounter Functional Status * Is the person deaf or does he/she have serious difficulty hearing? Answer Date of Assessment Author No 10/25/2021 8:56 AM EST Ar Galdamez MA * Is the person blind or does he/she have serious difficulty seeing even when wearing glasses? Answer Date of Assessment Author No 10/25/2021 8:56 AM EST Ar Galdamez MA * Does this person [...] Refills Last Filled Start Date End Date traMADoL (ULTRAM) 50 mg Oral TabletIndications: Injury of left knee, initial encounter Take 1 Tablet by mouth every 6 hours as needed for Pain. 12 Tablet 2 10/25/2021 11/04/2021 documented in this encounter Progress Notes * Trista Steele MD - 10/25/2021 8:45 AM EST Assessment Diagnoses and all orders for this visit: Injury of left knee, initial encounter - traMADoL (ULTRAM) 50 mg Oral Tablet; Take 1 Tablet by mouth every 6 hours as needed for Pain. Dispense: 12 Tablet; Refill: 2 - XR KNEE LEFT AP LAT INT EXT OBLIQUES AND SUNRISE; Future Acute pain of left knee Has brace and a crutch May need mri if not quickly better Xray shows hypoattenuation of the quardiceps and with the pop feeling he had and unable to bear weight I think he may have torn a ligament, will get mri Progress Note: Vitals: 10/25/21 0857 BP: 142/90 BP Location: Right arm Patient Position: Sitting Pulse: 102 Temp: 97.4 ??F (36.3 ??C) TempSrc: Forehead SpO2: 97% Height: 5' 9.5 (1.765 m) SUBJECTIVE: Chief Complaint Patient presents with ??? Knee Pain left knee HPI: yesterday slipped on the ice hurts so bad, can't put weight on it Landed directly on the concrete Taking motrin tylenol not really helping Review of Systems Musculoskeletal: Positive for arthralgias. OBJECTIVE: Physical Exam Vitals and nursing note reviewed. Constitutional: Appearance: Normal appearance. He is normal weight. HENT: Head: Normocephalic. Musculoskeletal: General: Swelling and tenderness present. Neurological: Mental Status: He is alert. Very swollen, not able to lift leg, documented in this encounter Miscellaneous Notes * Addendum Note - Trista Steele MD - 10/25/2021 8:45 AM ESTAddended by: TRISTA STEELE on: 10/25/2021 10:19 AM Modules accepted: Orders, SmartSet documented in this encounter Plan of Treatment Scheduled Orders Name Type Priority Associated Diagnoses Orde r Schedule MRI KNEE LEFT WO CONTRAST Imaging Routine Injury of left knee, initial encounter Instability of left knee joint 1 Occurrences starting 10/25/2021 until 10/25/2022 documented as of this encounter Goals Goal Patient Goal Type Associated Problems Recent Progress Patient-Stated? Author Maintain a healthy diet, exercise regularly and maintain an ideal body weight General No Jami Glover, LABORER PETROLEUM REFINERY documented as of this encounter Results * XR KNEE LEFT [...] ??S89.92XA-Unspecified injury of left lower leg, initial [id number] COMPARISON: ??None. PROCEDURE COMMENTS: XR KNEE LEFT [...] HISTORY: S89.92XA-Unspecified injury of left lower leg,initial [id number] COMPARISON: None. PROCEDURE COMMENTS: XR KNEE LEFT [...] Diagnoses Diagnosis Injury of left knee, initial encounter- Primary Acute pain of left knee Instability of left knee joint Injury of left knee, initial encounter documented in this encounter Care Teams Paint Mixer Machine Relationship Specialty Start Date End Date August England MD [address] [place] [id number] PCP - General Family Medicine 07/13/19 documented as of this encounter
--- OUTSIDE RECORDS SUMMARY | 2024-08-21 07:47 | XMS_ITS | Encounter Summary ---
Author Organization [place] [address] Care Team Providers Care Credit Reporter Name Role Phone August England MD Primary Care Provider [phone] Reason for Visit * Reason Comments Medication Refill Encounter Details Date Type Department Care Team (Late st Contact Info) Description 12/21/2022 Refill SEP [facility] [address] [facility] [place] [address] August England MD [address] [place] [address] Medication Refill Social History Tobacco [...] Ar Cano MA documented in this encounter Plan of Treatment Not on file documented as of this encounter Goals Goal Patient Goal Type Associated Problems Recent Progress Patient-Stated? Author Maintain a healthy diet, exercise regularly and maintain an ideal body weight General No Jami Glover, BANQUET DIRECTOR documented as of this encounter Visit Diagnoses Diagnosis History of asthma Personal history of other diseases of respiratory system COVID-19 virus infection documented in this encounter Care Teams Credit Reporter Relationship Specialty Start Date End Date August England MD [address] [place] [address] PCP - General Family Medicine 07/13/19 documented as of this encounter
--- OUTSIDE RECORDS SUMMARY | 2024-08-21 07:47 | XMS_ITS | Encounter Summary ---
Author Organization [facility] [place] [address] Care Team Providers Care Degreaser Name Role Phone August England MD Primary Care Provider [phone] Encounter Details Date Type Department Care Team (Latest Contact Info) Description 06/17/2021 Travel Social History Tobacco Use Types Packs/Day [...] AM EDT documented as of this encounter Functional [...] on filedocumented in this encounter Care Teams Degreaser Relationship Specialty Start Date End Date August England MD [address] [place] [address] PCP - General Family Medicine 07/13/19 documented as of this encounter
--- OUTSIDE RECORDS SUMMARY | 2024-08-21 07:47 | XMS_ITS | Referral Summary ---
Author Organization [facility] Address [address] [place] [address] Phone Care Team Providers Care Account General Manager Name Role Phone August England MD Primary Care Provider [phone] Allergies Active Allergy Reactions Criticality Noted Date [...] 05/28/2007 Tdap 07/16/2006 Typhoid, Unspecified Formulation 03/03/2007 Social History Tobacco Use Types Packs/Day Years [...] on file Sexual Orientation Not on file Last Filed Vital Signs Vital Sign Reading [...] Mass Index 41.84 11/02/2023 7:35 AM EST Functional Status * Is the person deaf [...] No 10/25/2021 8:56 AM Ar Cano MA Mental Status * Because of a physical, mental or emotional condition, does this person have serious difficulty concentrating, remembering or making decisions? Answer Entry Date Author No 10/25/2021 8:56 AM Ar Cano MA Plan of Treatment Not on file Goals Goal Patient Goal Type Associated Problems Recent Progress Patient-Stated? Author Maintain a healthy diet, exercise regularly and maintain an ideal body weight General No Jami Glover, [facility] Insurance [facility] CHOICE [place] [address] AUTO INSURANCE AA [facility] CHOICE PLUS Advance Directives For more information, please contact: [phone] * Full Code (Latest Code Status on File) Date Activated Date Inactivated Comments 10/24/2014 10:53 AM 10/24/2014 10:25 PM Care Teams Account General Manager Relationship Specialty Start Date End Date August England MD [address] [place] [phone] PCP - General Family Medicine 07/13/19
--- OUTSIDE RECORDS SUMMARY | 2024-08-21 07:47 | XMS_ITS | Encounter Summary ---
Author Organization [place] [address] Care Team Providers Care Cleaner Name Role Phone August England MD Primary Care Provider [phone] Reason for Visit * Reason Comments Medication Refill Encounter Details Date Type Department Care Team (Late st Contact Info) Description 08/27/2021 Refill SEP [facility] [address] [facility] [place] [address] August England MD [address] [place] [address] Medication Refill Social History Tobacco [...] 4 HOURS NEEDED FOR WHEEZING 8.5 g 08/28/2021 documented in this encounter Plan of Treatment [...] HFA;VENTOLIN HFA) 90 mcg/actuation Inhl HFA Aerosol InhalerIndications:Histo ry of asthma,COVID-19 virus infection Inhale 2 Puffs into the lungs every 4 hours as needed for Wheezing. 07/29/2021 08/28/2021 documented as of this encounter Care Teams Cleaner Relationship Specialty Start Date End Date August England MD [address] [facility] [place] [phone] PCP - General Family Medicine 07/13/19 documented as of this encounter
--- OUTSIDE RECORDS SUMMARY | 2024-08-21 07:47 | XMS_ITS | Encounter Summary ---
Author Organization [facility] [place] [address] Care Team Providers Care Pantographer Name Role Phone August England MD Primary Care Provider Encounter Details Date Type Department Care Team (Late st Contact Info) Description 07/29/2021 9:15 AM EDT Telemedicine [facility] [address] [facility] [place] [address] Shanelle Barlow, APPLICATION SOFTWARE DEVELOPER [address] [place] [address] Muscle spasm (Primary Dx); History of asthma; COVID-19 virus infection Social History Tobacco Use Types Packs/Day Years [...] Refills Last Filled Start Date End Date tiZANidine (ZANAFLEX) 4 mg Oral TabletIndications: Muscle spasm Take 1 Tablet by mouth nightly as needed. 30 Tablet 2 07/29/2021 2 albuterol (PROVENTIL HFA;VENTOLIN HFA) 90 mcg/actuation Inhl HFA Aerosol InhalerIndications :History of asthma,COVID-19 virus infection Inhale 2 Puffs into the lungs every 4 hours as needed for Wheezing. 8.5 g 2 07/29/2021 1 documented in this encounter Progress Notes * Shanelle Barlow APRN - 07/29/2021 9:15 AM EDT Patient presented today for routine care follow-up through a video visit. Patient has reviewed the terms and conditions of service as part of the registration for today's visit. A video visit does not replace a [id number] exam and further services may be necessary. We are conducting his video visit in a private space and this video visit is being conducted in accordance with [facility] telehealth/video visit regulations. HPI: Was diagnosed with covid 07/22. States needs another inhaler. States neck and back pain. Would like a muscle relaxer. Review of Systems Constitutional: Positive for fever. Respiratory: Positive for cough. Musculoskeletal: Positive for arthralgias and neck pain. Exam: Constitutional: NAD, appropriately groomed. Appears comfortable. [...] Diagnoses and all orders for this visit: Muscle spasm - tiZANidine (ZANAFLEX) 4 mg Oral Tablet; Take 1 Tablet by mouth nightly as needed. Dispense: 30 Tablet; Refill: 2 History of asthma - albuterol (PROVENTIL HFA;VENTOLIN HFA) 90 mcg/actuation Inhl HFA Aerosol Inhaler; Inhale 2 Puffs into the lungs every 4 hours as needed for Wheezing. Dispense: 8.5 g; Refill: 2 COVID-19 virus infection - albuterol (PROVENTIL HFA;VENTOLIN HFA) 90 mcg/actuation Inhl HFA Aerosol Inhaler; Inhale 2 Puffs into the lungs every 4 hours as needed for Wheezing. Dispense: 8.5 g; Refill: 2 documented in this encounter Plan of Treatment Not on file documented as of this encounter Goals Goal Patient Goal Type Associated Problems Recent Progress Patient-Stated? Author Maintain a healthy diet, exercise regularly and maintain an ideal body weight General Jami Sanches CMA documented as of this encounter Visit Diagnoses Diagnosis Muscle spasm- Primary Spasm of muscle History of asthma Personal history of other diseases of respiratory system COVID-19 virus infection documented in this encounter Discontinued Medications Medication Sig Discontinue Reason Start Date End Da te albuterol (PROVENTIL HFA;VENTOLIN HFA) 90 mcg/actuation Inhl HFA Aerosol InhalerIndications:Hist ory of asthma INHALE 2 PUFFS INTO THE LUNGS EVERY 4 HOURS NEEDED FOR WHEEZING Reorder 05/07/2021 07/29/2021 documented as of this encounter Additional Health Concerns Infection Onset Date Last Indicated Resolved Time COVID-19 07/22/2021 07/22/2021 08/11/2021 10:1 3 PM EST documented as of this encounter Care Teams Pantographer Relationship Specialty Start Date End Date August England MD [address] [place] [id number] PCP - General Family Medicine 07/13/19 documented as of this encounter
--- OUTSIDE RECORDS SUMMARY | 2024-08-21 07:47 | XMS_ITS | Encounter Summary ---
Author Organization [facility] [place] [address] Care Team Providers Care Mobile Security Specialist Name Role Phone August England MD Primary Care Provider [phone] Encounter Details Date Type Department Care Team (Latest Contact Info) Description 10/25/2021 Travel Social History Tobacco Use Types Packs/Day [...] on filedocumented in this encounter Care Teams Mobile Security Specialist Relationship Specialty Start Date End Date August England MD [address] [place] [address] PCP - General Family Medicine 07/13/19 documented as of this encounter
--- OUTSIDE RECORDS SUMMARY | 2024-08-21 07:47 | XMS_ITS | Encounter Summary ---
Author Organization [place] [address] Care Team Providers Care Melon Packer Name Role Phone August England MD Primary Care Provider [phone] Reason for Visit * Reason Comments Otitis Media Follow up still pain ful Rash Rash on stomach Encounter Details Date Type Department Care Team (Latest Contact Info) Description 11/02/2023 7:30 AM EST Office Visit [facility] [address] [facility] [place] [address] August England MD [address] [place] [address] Recurrent acute serous otitis media of right ear (Primary Dx); ETD (Eustachian tube dysfunction), right; ED (erectile dysfunction) of non-organic origin Social History Tobacco Use Types Packs/Day Years [...] 11/02/2023 7:35 AM ES T Respiratory Rate - - Oxygen Saturation 97% 11/02/2023 7:35 AM EST Inhaled Oxygen Concentration - - Weight 136.1 kg (300 lb) 11/02/2023 7:35 AM EST Height 180.3 cm (5' 11 ) 11/02/2023 7:35 AM EST Body Mass Index 41.84 11/02/2023 7:35 AM EST documented in this encounter Functional [...] Refills Last Filled Start Date End Date sildenafiL (VIAGRA) 100 mg Oral TabletIndications: ED (erectile dysfunction) of non-organic origin Take 0.5-1 Tablets by mouth daily as needed for Erectile Dysfunction. 6 Tablet 12 11/02/2023 predniSONE (DELTASONE) 20 mg Oral TabletIndications: ETD (Eustachian tube dysfunction), right Take 1 Tablet by mouth 2 times daily for 7 days. 14 Tablet 11/02/2023 4 levoFLOXacin (LEVAQUIN) 750 mg Oral TabletIndications: Recurrent acute serous otitis media of right ear Take 1 Tablet by mouth daily for 10 days. 10 Tablet 11/02/2023 4 documented in this encounter Progress Notes * August England MD - 11/02/2023 7:30 AM EST Assessment Diagnoses and all orders for this visit: Recurrent acute serous otitis media of right ear - levoFLOXacin (LEVAQUIN) 750 mg Oral Tablet; Take 1 Tablet by mouth daily for 10 days. Dispense: 10 Tablet; Refill: 0 ETD (Eustachian tube dysfunction), right - predniSONE (DELTASONE) 20 mg Oral Tablet; Take 1 Tablet by mouth 2 times daily for 7 days. Dispense: 14 Tablet; Refill: 0 ED (erectile dysfunction) of non-organic origin - sildenafiL (VIAGRA) 100 mg Oral Tablet; Take 0.5-1 Tablets by mouth daily as needed for Erectile Dysfunction. Dispense: 6 Tablet; Refill: 12 Anticipates RTO in a month or so for his AWV, fasting BW, anticipate checking testosterone as well Progress Note: Vitals: 11/02/23 0735 BP: (!) 158/88 Pulse: 88 Temp: 98.1 ??F (36.7 ??C) TempSrc: Forehead SpO2: 97% Weight: 300 lb (136.1 kg) Height: 5' 11 (1.803 m) Body mass index is 41.84 kg/m??. SUBJECTIVE: Chief Complaint Patient presents with ??? Otitis Media Follow up still painful ??? Rash Rash on stomach HPI: Finished doxy for ROM, sinusitis Sinuses better, ear issues persist, some drainage, pressure in R ear, had several sets of PE tubes as child Rash on stomach Review of Systems Constitutional: Negative for fatigue and unexpected weight change. Eyes: Negative for visual disturbance. Respiratory: Negative for cough and shortness of breath. Cardiovascular: Negative for chest pain, palpitations and leg swelling. Neurological: Negative for headaches. OBJECTIVE: Physical Exam Vitals and nursing note reviewed. Constitutional: General: He is not in acute distress. Appearance: Normal appearance. He is well-developed and normal weight. HENT: Head: Normocephalic. Right Ear: External ear normal. Left Ear: External ear normal. Ears: Comments: ROM Nose: Nose normal. Mouth/Throat: Mouth: Mucous membranes are moist. Pharynx: Oropharynx is clear. Eyes: General: No scleral icterus. Extraocular Movements: Extraocular movements intact. Conjunctiva/sclera: Conjunctivae normal. Pupils: Pupils are equal, round, and reactive to light. Neck: Vascular: No carotid bruit. Cardiovascular: Rate and Rhythm: Normal rate and regular rhythm. Pulses: Normal pulses. Heart sounds: Normal heart sounds. No murmur heard. Comments: No carotid bruits Pulses 2 + equal throughout Pulmonary: Effort: Pulmonary effort is normal. Breath sounds: Normal breath sounds. Abdominal: General: Abdomen is flat. Musculoskeletal: Right lower leg: No edema. Left lower leg: No edema. Skin: Capillary Refill: Capillary refill takes less than 2 seconds. Neurological: General: No focal deficit present. Mental Status: He is alert and oriented to person, place, and time. Mental status is at baseline. Psychiatric: Mood [...] as of this encounter Visit Diagnoses Diagnosis Recurrent acute serous otitis media of right ear- Primary Acute serous otitis media ETD (Eustachian tube dysfunction), right ED (erectile dysfunction) of non-organic origin Psychosexual dysfunction with inhibited sexual excitement documented in this encounter Care Teams Melon Packer Relationship Specialty Start Date End Date August England MD [address] [place] [id number] PCP - General Family Medicine 07/13/19 documented as of this encounter
--- OUTSIDE RECORDS SUMMARY | 2024-08-21 07:47 | XMS_ITS | Encounter Summary ---
Author Organization [facility] [place] [address] Care Team Providers Care Supervisor Coating Name Role Phone August England MD Primary Care Provider [phone] Reason for Referral * Consultation (Routine) - Closed Specialty Diagnoses / Procedures Referred By Jazmine patterson Referred To Contact Orthopedic Surgery Diagnoses Lateral knee pain, left Left knee injury, subsequent encounter Injury due to fall, subsequent encounter Fall due to slipping on ice or snow, subsequent encounter Acute pain of left knee Kael Harris MD [address] [place] [address] Phone: tel: fax: [facility] [address] [place] [address] Phone: tel: fax: Referral ID Status Reason Start Date Expiration Date Visits Re quested Visits Authorized [id number] Closed 11/04/2021 11/04/2022 99 99 Reason for Visit * Reason Comments Knee Pain left knee x 1 week Encounter Details Date Type Department Care Team (Latest Contact Info) Description 11/04/2021 8:15 AM EST Office Visit [facility] [address] [place] [address] Kael Harris MD [address] [place] [address] Lateral knee pain, left (Primary Dx); Left knee injury, subsequent encounter; Injury due to fall, subsequent encounter; Fall due to slipping on ice or snow, subsequent encounter; Acute pain of left knee Social History Tobacco Use Types Packs/Day Years [...] Sign Reading Time Taken Comments Blood Pressure 110/82 11/04/2021 8:09 AM EST Pulse 103 11/04/2021 8:09 AM EST Temperature 36.6 ??C (97.8 ??F) 11/04/2021 8:09 AM ES T Respiratory Rate - - Oxygen Saturation 97% 11/04/2021 8:09 AM EST Inhaled Oxygen Concentration - - Weight 124.7 kg (275 lb) 11/04/2021 8:09 AM EST Height 176.5 cm (5' 9.5 ) 11/04/2021 8:09 AM EST Body Mass Index 40.03 11/04/2021 8:09 AM EST documented in this encounter Functional [...] Ar Cano MA documented in this encounter Progress Notes * Tory Kemp MA - 11/04/2021 8:15 AM EST Pt said he got tdap Kael Nguyen MD - 11/04/2021 8:15 AM EST Assessment Diagnoses and all orders for this visit: Lateral knee pain, left - AMB REFERRAL TO ORTHOPEDIC SURGERY Left knee injury, subsequent encounter - AMB REFERRAL TO ORTHOPEDIC SURGERY Injury due to fall, subsequent encounter - AMB REFERRAL TO ORTHOPEDIC SURGERY Fall due to slipping on ice or snow, subsequent encounter - AMB REFERRAL TO ORTHOPEDIC SURGERY Acute pain of left knee - AMB REFERRAL TO ORTHOPEDIC SURGERY GRANT listed in chart as expected on 10/25/21 Today's requested GRANT in manual process. Continue the current COVID-19 pandemic recommendations and precautions. Return if symptoms worsen or fail to improve. No additional pain medication given at this time as the chart shows he has had 30 Percocet prescribed already. I do believe he is picked these 2 prescriptions up and one of them may have been canceled. He does appear to have pathology in the knee on my exam today and waiting on the MRI I believe onlyserves to delay his treatment. Feel that the most appropriate thing is to have him follow-up with orthopedics today at [facility] urgent care where his evaluation and treatment can be facilitated. Progress Note: Vitals: 11/04/21 0809 BP: 110/82 BP Location: Right arm Patient Position: Sitting Pulse: 103 Temp: 97.8 ??F (36.6 ??C) TempSrc: Forehead SpO2: 97% Weight: 275 lb (124.7 kg) Height: 5' 9.5 (1.765 m) SUBJECTIVE: Chief Complaint Patient presents with ??? Knee Pain left knee x 1 week HPI: Fell on black ice 10/31/21 Landed on and twisted L knee in the fall [place]. Did have XR done. Question of attenuation in L quadriceps tendon Has pain on extension and movement of L lower leg. MRI arranged for Wednesday11/09/21 at [facility] Did have some percocet after the injury. Used / tab about TID prn. Now out. still having pain 5-9/10 Worse early in the AM and with movement. Pounding, throbbing and sharp Pain on weight bearing. Review of Systems Constitutional: Negative. HENT: Negative. Eyes: Negative. Respiratory: Negative. Cardiovascular: Negative. Gastrointestinal: Negative. Endocrine: Negative. Genitourinary: Negative. Having no masses or problems. Musculoskeletal: Negative. Skin: Negative. No suspicious skin lesions. Allergic/Immunologic: Negative. Neurological: Negative. Hematological: Negative. Psychiatric/Behavioral: Negative. OBJECTIVE: Physical Exam Vitals reviewed. Constitutional: General: He is not in acute distress. Appearance: Normal appearance. He is well-developed. He is not ill-appearing, toxic-appearing or diaphoretic. HENT: Head: Normocephalic and atraumatic. Eyes: Conjunctiva/sclera: Conjunctivae normal. Cardiovascular: Rate and Rhythm: Normal rate and regular rhythm. Heart sounds: Normal heart sounds. Pulmonary: Effort: Pulmonary effort is normal. Breath sounds: Normal breath sounds. Abdominal: General: Bowel sounds are normal. There is no distension. Palpations: Abdomen is soft. Tenderness: There is no abdominal tenderness. Musculoskeletal: General: Tenderness (lateral L knee at meniscus with pos Awilda.) present. Cervical back: Normal range of motion and neck supple. Right lower leg: No edema. Left lower leg: No edema. Skin: General: Skin is warm and dry. Neurological: General: No focal deficit present. Mental Status: He is alert. Mental status is at baseline. Psychiatric: Mood and Affect: Mood normal. Behavior: Behavior normal. Thought Content: Thought content normal. Judgment: Judgment normal. documented in this encounter Plan of Treatment Scheduled Referrals Name Type Priority Associated Diagnoses Order Schedule AMB REFERRAL TO ORTHOPEDIC SURGERY Outpatient Referral Routine Lateral knee pain, left Left knee injury, subsequent encounter Injury due to fall, subsequent encounter Fall due to slipping on ice or snow, subsequent encounter Acute pain of left knee Ordered: 11/04/2021 documented as of this encounter Goals Goal Patient Goal Type Associated Problems Recent Progress Patient-Stated? Author Maintain a healthy diet, exercise regularly and maintain an ideal body weight Jami Palacios MATERIAL CHECKER documented as of this encounter Visit Diagnoses Diagnosis Lateral knee pain, left- Primary Left knee injury, subsequent encounter Injury due to fall, subsequent encounter Fall due to slipping on ice or snow, subsequent encounter Acute pain of left knee documented in this encounter Discontinued Medications Medication Sig Discontinue Reason Start Date End Da te oxyCODONE-acetaminophe n (PERCOCET) 5-325 mg Oral TabletIndications:Acut e pain of left knee Take 1 Tablet by mouth every 4 hours as needed for Acute Pain (R52). DELETE-Therapy completed 10/27/2021 11/04/2021 traMADoL (ULTRAM) 50 mg Oral TabletIndications:Inju ry of left knee, initial encounter Take 1 Tablet by mouth every 6 hours as needed for Pain. DELETE-Therapy completed 10/25/2021 11/04/2021 tiZANidine (ZANAFLEX) 4 mg Oral TabletIndications:Musc le spasm Take 1 Tablet by mouth nightly as needed. DELETE-Therapy completed 07/29/2021 11/04/2021 documented as of this encounter Care Teams Supervisor Coating Relationship Specialty Start Date End Date August England MD [address] [place] [id number] PCP - General Family Medicine 07/13/19 documented as of this encounter
--- OUTSIDE RECORDS SUMMARY | 2024-08-21 07:47 | XMS_ITS | Encounter Summary ---
Author Organization [place] [address] Care Team Providers Care Global Technical Writer Name Role Phone August England MD Primary Care Provider [phone] Reason for Visit * Reason Onset Date Comments Lab Orders 07/21/2021 exposed to covid in his home Encounter Details Date Type Department Care Team (Late st Contact Info) Description 07/21/2021 Telephone [facility] [address] [place] [address] August England MD [address] [place] [address] Lab Orders (exposed to covid in his home) Social History Tobacco Use Types Packs/Day Years [...] Recio RMA * Does this person have difficulty dressing or bathing? Answer Date of Assessment Author No 06/17/2021 8:58 AM EDT Liz Recio RMA * Because of a physical, mental or emotional condition, does this person have difficulty doing errands alone such as visiting a doctor's office or shopping? Answer Date of Assessment Author No 06/17/2021 8:58 AM EDT Liz Recio RMA documented as of this encounter Mental Status * Because of a physical, mental or emotional condition, does this person have serious difficulty concentrating, remembering or making decisions? Answer Entry Date Author No 06/17/2021 8:58 AM EDT Liz Recio RMA documented in this encounter Miscellaneous Notes * Telephone Encounter - Beatriz Quinteros - 07/22/2021 9:06 AM EDT Warm transferred - office to schedule * Telephone Encounter - Vicenta Miller MA - 07/21/2021 11:27 AM EDT Left message on voicemail he will need a video visit * Telephone Encounter - Ana Royal - 07/21/2021 9:48 AM EDT Order Request Who is requesting the Order(s): Patient What Orders are being requested: Lab ?? Reason Orders are Needed (Diagnosis): exposed to covid ?? Is patient waiting at lab/hospital/facility: No ?? If non-[facility], where should the order be faxed (include fax number): na ? Upcoming PCP appointment date: na ?? Additional Information: States he has been exposed to a positive case of covid. documented in this encounter Plan of Treatment Not on file documented as of this encounter Goals Goal Patient Goal Type Associated Problems Recent Progress Patient-Stated? Author Maintain a healthy diet, exercise regularly and maintain an ideal body weight General No Jami Glover, NURSING ATTENDANT documented as of this encounter Visit Diagnoses Not on filedocumented in this encounter Additional Health Concerns Infection Onset Date Last Indicated Resolved Time R/O COVID-19 07/22/2021 07/22/2021 07/23/2021 12:0 8 PM EDT COVID-19 07/22/2021 07/22/2021 08/11/2021 10:1 3 PM EST documented as of this encounter Care Teams Global Technical Writer Relationship Specialty Start Date End Date August England MD [address] [place] [address] PCP - General Family Medicine 07/13/19 documented as of this encounter
--- OUTSIDE RECORDS SUMMARY | 2024-08-21 07:47 | XMS_ITS | Encounter Summary ---
Author Organization [place] [address] Care Team Providers Care Clerk Analyst Name Role Phone August England MD Primary Care Provider [phone] Encounter Details Date Type Department Care Team (Late st Contact Info) Description 05/29/2021 7:30 AM EDT Telemedicine [facility] [address] [facility] [place] [address] Trista Steele MD [address] [place] [address] Cough (Primary Dx) Social History Tobacco Use Types [...] Progress Notes * Trista Steele MD - 05/29/2021 7:30 AM EDT Patient presented today for routine care follow-up through a video visit. Patient has reviewed the terms and conditions of service as part of the registration for today's visit. A video visit does not replace a oxke-rf-epoe exam and further services may be necessary. We are conducting his video visit in a private space and this video visit is being conducted in accordance with state telehealth/video visit regulations. HPI: Has to have another negative test to go back to work Still has congestion Review of Systems Constitutional: Negative for fatigue. HENT: Positive for congestion. Respiratory: [...] and all orders for this visit: Cough continue tyelnol motrin and otc cold meds Ok for rapid covid test If negative can go back to work documented in this encounter Plan of Treatment Not on file documented as of this encounter Goals Goal Patient Goal Type Associated Problems Recent Progress Patient-Stated? Author Maintain a healthy diet, exercise regularly and maintain an ideal body weight General No Jami Glover, CULTURE ROOM WORKER documented as of this encounter Visit Diagnoses Diagnosis Cough- Primary documented in this encounter Care Teams Clerk Analyst Relationship Specialty Start Date End Date August England MD [address] [place] [address] PCP - General Family Medicine 07/13/19 documented as of this encounter
--- OUTSIDE RECORDS SUMMARY | 2024-08-21 07:48 | XMS_ITS | Encounter Summary ---
Author Organization [place] [address] Care Team Providers Care Field Observer Name Role Phone Unavailable Primary Care Provider Unavailabl e Encounter Details Date Type Department Care Team (Late st Contact Info) Description 08/22/2002 4:25 PM EST - 08/22/2002 11:59 PM EST Hospital Encounter [facility] Black Hernadez MD [address] [place] [address] Social History Tobacco Use Types Packs/Day Years Used Date Smoking Tobacco: Never Assessed Sex and Gender Information Value Date Recorded Sex Assigned at Not on file Legal Sex Male 6:04 PM EDT Gender Identity Not on file Sexual Orientation Not on file documented as of this encounter Plan of Treatment Not on file documented as of this encounter Visit Diagnoses Not on filedocumented in this encounter
--- OUTSIDE RECORDS SUMMARY | 2024-08-21 07:48 | XMS_ITS | Encounter Summary ---
Author Organization [facility] [place] [address] Care Team Providers Care Gas Check Pad Maker Name Role Phone August England MD Primary Care Provider [phone] Encounter Details Date Type Department Care Team (Latest Contact Info) Description 07/10/2020 Travel Social History Tobacco Use Types Packs/Day [...] have Coronavirus / COVID-19? No / Unsure 07/10/2020 1:44 PM EDT documented as of this encounter [...] of Assessment Author No 07/10/2020 1:52 PM Ar Norman MA documented as of this encounter Mental [...] on filedocumented in this encounter Care Teams Gas Check Pad Maker Relationship Specialty Start Date End Date August England MD [address] [place] [address] PCP - General Family Medicine 07/13/19 documented as of this encounter
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
--- OUTSIDE RECORDS SUMMARY | 2024-08-21 07:48 | XMS_ITS | Encounter Summary ---
Author Organization [place] [address] Care Team Providers Care Attraction Worker Name Role Phone Arnaldo Kearns DO Primary Care Provider [phone] Reason for Visit * Reason Comments Cough productive cough yel low sputum, back/chest sore from cough, nasal congestion/draianage Encounter Details Date Type Department Care Team (Late st Contact Info) Description 10/31/2012 2:00 PM EST Office Visit [facility] [address] [place] [address] Arnaldo Kearns DO [address] [place] [address] Bronchitis (Primary Dx); Fever and chills; Body aches; Wheezing Social History Tobacco Use Types Packs/Day Years Used Date Smoking Tobacco: Never Smokeless Tobacco: Never Alcohol Use Standard Drinks/Week Comments Yes 0 (1 standard drink = 0.6 oz pur e alcohol) occ Sex and Gender Information Value Date Recorded Sex Assigned at Not on file Legal Sex Male 6:04 PM EDT Gender Identity Not on file Sexual Orientation Not on file documented as of this encounter Last Filed Vital Signs Vital Sign Reading Time Taken Comments Blood Pressure 138/84 10/31/2012 2:18 PM EST Pulse 86 10/31/2012 2:18 PM EST Temperature 36.9 ??C (98.5 ??F) 10/31/2012 2:18 PM ES T Respiratory Rate - - Oxygen Saturation 96% 10/31/2012 2:18 PM EST Inhaled Oxygen Concentration - - Weight 109.7 kg (241 lb 12.8 oz) 10/31/2012 2:18 PM EST Height 175.9 cm (5' 9.25 ) 10/31/2012 2:18 PM ES T Body Mass Index 35.45 10/31/2012 2:18 PM EST documented in this encounter Ordered Prescriptions Prescription Sig Dispense Quantity Refills Last Filled Start Date End Date albuterol (PROAIR HFA) 90 mcg/actuation inhalerIndications :Wheezing,Bronchit is Inhale 2 Puffs into the lungs every 6 hours as needed for Wheezing for 30 days. 1 Inhaler 2 10/31/2012 3 predniSONE (DELTASONE) 20 mg tabletIndications: Bronchitis Take 1 daily for 5 days then stop 5 Tab 0 10/31/2012 3 azithromycin (ZITHROMAX) 250 mg tabletIndications: Bronchitis Take 2 tablets (500 mg) on Day 1, followed by 1 tablet (250 mg) once daily on Days 2 through 5. 6 Tab 0 10/31/2012 3 documented in this encounter Progress Notes * Unknown, Unknown - 11/09/2012 12:00 AM EST * Arnaldo Kearns DO - 10/31/2012 2:47 PM EST Subjective: Patient ID: Zi Johnson is a 27 y.o. male. HPI Comments: 27 y/o who presents as a new patient for URI symptoms. Please see below Patient does have a history of asthma but states he rarely has to use his inhaler. URI This is a new problem. The current episode started in the past 7 days. Maximum temperature: did notcheck it. Associated symptoms include congestion, coughing, nausea, rhinorrhea, sinus pain, a sore throat, vomiting and wheezing. Pertinent negatives include no abdominal pain, ear pain, headaches, plugged ear sensation or rash. Associated symptoms comments: Cough- productive of yellow sputum Congestion- green sputum Nausea and Vomiting have resolved . He has tried acetaminophen (mucinex) for the symptoms. The treatment provided no relief. Patients past medical, family and social histories were reviewed and updated. There were no changesexcept as noted. Review of Systems Constitutional: Positive for fever and chills. HENT: Positive for congestion, sore throat, rhinorrhea and sinus pressure. Negative for ear pain. Eyes: Negative for visual disturbance. Respiratory: Positive for cough and wheezing. Negative for shortness of breath. Cardiovascular: Negative. Gastrointestinal: Positive for nausea and vomiting. Negative for abdominal pain. Genitourinary: Negative. Musculoskeletal: Negative. Skin: Negative for color change and rash. Neurological: Negative for headaches. Objective: Filed Vitals: 10/31/12 1418 BP: 138/84 Pulse: 86 Temp: 98.5 ??F (36.9 ??C) TempSrc: Oral Height: 5' 9.25 (1.759 m) Weight: 241 lb 12.8 oz (109.68 kg) SpO2: 96% Body mass index is 35.45 kg/(m^2). Physical Exam Nursing note and vitals reviewed. Constitutional: Vital signs are normal. He appears well-developed and well-nourished. HENT: Head: Normocephalic and atraumatic. Right Ear: Hearing, tympanic membrane, external ear and ear canal normal. Left Ear: Hearing, tympanic membrane, external ear and ear canal normal. Nose: Mucosal edema and rhinorrhea present. Right sinus exhibits no maxillary sinus tenderness and no frontal sinus tenderness. Left sinus exhibits no maxillary sinus tenderness and no frontal sinus tenderness. Mouth/Throat: Uvula is midline, oropharynx is clear and moist and mucous membranes are normal. Eyes: Conjunctivae and EOM are normal. Pupils are equal, round, and reactive to light. Neck: Normal range of motion and full passive range of motion without pain. Neck supple. Cardiovascular: Normal rate, regular rhythm and normal heart sounds. No murmur heard. Pulmonary/Chest: Effort normal. He has wheezes. He has no rhonchi. He has no rales. Non-productive cough on exam. Abdominal: Soft. Normal appearance and bowel sounds are normal. There is no tenderness. Lymphadenopathy: He has no cervical adenopathy. Neurological: He is alert. Skin: Skin is warm and dry. No rash noted. Psychiatric: He has a normal mood and affect. Assessment and Plan: Zi was seen today for cough. Diagnoses and associated orders for this visit: Fever and chills - POCT Influenza A/B Body aches - POCT Influenza A/B Wheezing - Nebulizer Inhaler Treatment - albuterol (PROVENTIL) nebulizer solution 2.5 mg; Take 3 mL by nebulization once. - ipratropium (ATROVENT) 0.02 % nebulizer solution 0.5 mg; Take 2.5 mL by nebulization once. - albuterol (PROAIR HFA) 90 mcg/actuation inhaler; Inhale 2 Puffs into the lungs every 6 hours as needed for Wheezing for 30 days. Bronchitis - azithromycin (ZITHROMAX) 250 mg tablet; Take 2 tablets (500 mg) on Day 1, followed by 1 tablet (250 mg) once daily on Days 2 through 5. - predniSONE (DELTASONE) 20 mg tablet; Take 1 daily for 5 days then stop - albuterol (PROAIR HFA) 90 mcg/actuation inhaler; Inhale 2 Puffs into the lungs every 6 hours as needed for Wheezing for 30 days. documented in this encounter Miscellaneous Notes * Miscellaneous - Unknown, Unknown - 11/04/2012 12:00 AM EST * Patient Instructions - Arnaldo Kearns DO - 10/31/2012 3:25 PM EST Thank you for enrolling in [facility]. Please follow the instructions below to securely access your online medical record. [facility] allows you to send messages to your doctor, view your test results, renew your prescriptions, request appointments and more. How Do I Sign Up? 1. In your Internet browser, navigate to [email or web address] and click on the [facility] link. 2. Click on the Sign Up Now link in the Sign In box. You will see the New Member Sign Up page. 3. Enter your [facility] Access Code exactly as it appears below. You will not need to use this code after you???ve completed the sign-up process. This activation code will 60 days after the dateat the top of this page at which time you must request a new code from your doctors office. [facility] Access Code: [email or web address] Expires: 12/30/2012 3:25 PM 4. Enter your Social Security Number ([id number]) and Date of (mm/dd/yyyy) as indicated and click Submit. You will be taken to the next sign- up page. 5. Create a [facility] ID. This will be your [facility] login ID and cannot be changed, so think of one that is secure and easy to remember. 6. Create a [facility] password. You can change your password at any time. 7. Enter your Password Reset Question and Answer. This can be used at a later time if you forget your password. 8. Enter your e-mail address. You will receive e-mail notification when new information is available in [facility]. 9. Click Sign Up. You can now view your medical record. Additional Information Additional Information If you have questions, call your doctors office to talk to a [facility] staff member. Remember, [facility] is NOT to be used for urgent needs. For medical emergencies, dial 911. documented in this encounter Plan of Treatment Scheduled Orders Name Type Priority Associated Diagnoses Orde r Schedule MA INHAL RX, AIRWAY OBST/DX SPUTUM INDUCT MA Charge Routine Wheezing Ordered: 10/31/2012 documented as of this encounter Procedures Procedure Name Priority Date/Time Associated Diagnosis Comments POCT INFLUENZA A/B Routine 10/31/2012 3: 24 PM EST Fever and chills Body aches documented in this encounter Results * POCT INFLUENZA A/B (10/31/2012 3:24 PM EST) Influenza A Ag neg SEP OFFICE Influenza B Ag neg SEP OFFICE Lot Number SEP OFFICE Expiration Date SEP OFFICE 10/31/2012 3:24 PM EST Arnaldo Kearns DO POINT OF CARE TEST ORDERABL ES Final Result [facility]P [facility] documented in this encounter Visit Diagnoses Diagnosis Bronchitis- Primary Bronchitis, not specified as acute or chronic Fever and chills Fever, unspecified Body aches Generalized pain Wheezing documented in this encounter Discontinued Medications Medication Sig Discontinue Reason Start Date End Da te acetaminophen (TYLENOL) 325 mg tablet Take by mouth every 4 hours as needed for Pain. 10/31/2012 documented as of this encounter Orders Medications Ordered That Apolinar ht Not Have Been Administered Count Last Ordered Date First Ordered Date albuterol (PROVENTIL) nebuli zer solution 2.5 mg 1 10/31/2012 ipratropium (ATROVENT) 0.02 % nebulizer solution 0.5 mg 1 10/31/2012 documented in this encounter Care Teams Attraction Worker Relationship Specialty Start Date End Date Arnaldo Kearns DO [address] [facility] [place] [address] PCP - General Internal Medicine 10/31/12 12/18/15 documented as of this encounter
--- OUTSIDE RECORDS SUMMARY | 2024-08-21 07:48 | XMS_ITS | Encounter Summary ---
Author Organization [place] [address] Care Team Providers Care Technology Coordinator Name Role Phone Unavailable Primary Care Provider Unavailabl e Reason for Visit * Reason Comments Ear Problem Pt reports bleeding to right ear about one hour [employer] to ED. Pt reports ear pain for 2 days. Encounter Details Date Type Department Care Team (Late st Contact Info) Description 10/27/2016 11:06 PM EST - 10/27/2016 11:47 PM EST Emergency [facility] [address] [place] [address] Ken Beard MD Right acute otitis media (Primary Dx) Discharge Disposition: Home or Self Care Social History Tobacco Use Types Packs/Day Years Used Date Smoking Tobacco: Never Smokeless Tobacco: Never Alcohol Use Standard Drinks/Week Comments No 0 (1 standard drink = 0.6 oz pur e alcohol) occasional Sex and Gender Information Value Date Recorded Sex Assigned at Not on file Legal Sex Male 6:04 PM EDT Gender Identity Not on file Sexual Orientation Not on file documented as of this encounter Last Filed Vital Signs Vital Sign Reading Time Taken Comments Blood Pressure 143/94 10/27/2016 11:09 PM EST Pulse 62 10/27/2016 11:09 PM EST Temperature 36.4 ??C (97.6 ??F) 10/27/2016 11:[address] Respiratory Rate 18 10/27/2016 11:09 PM EST Oxygen Saturation 97% 10/27/2016 11:09 PM EST Inhaled Oxygen Concentration - - Weight 112 kg (247 lb) 10/27/2016 11:09 PM EST Height 177.8 cm (5' 10 ) 10/27/2016 11:09 PM EST Body Mass Index 35.44 10/27/2016 11:09 PM EST documented in this encounter Discharge Instructions * Discharge Instructions* Ken Beard MD - 10/27/2016 11:20 PM EST You have been diagnosed with a Right ear infection which requires 10 days of antibiotics. Finish entire course of antibiotics, regardless of improvement in symptoms. Rotate Tylenol and ibuprofen every 3-4 hours as needed for fever. Followup with your family physician in one week for reexamination, or earlier if you are not improving. Return to the emergency room for any concerns. * Attachments The following attachments cannot be sent through Care Everywhere. * OTITIS MEDIA, ADULT (TAJIK) documented in this encounter Medications at Time of Discharge clindamycin (CLEOCIN) 150 mg Oral Capsule Take 3 Caps by mouth every 8 hours for 10 days. 90 Cap 10/27/2016 11/06/2016 ibuprofen (ADVIL;MOTRIN) 800 mg Oral Tablet Take 1 Tab by mouth every 8 hours as needed for up to 21 doses. 21 Tab 10/27/2016 11/10/2016 documented as of this encounter Ordered Prescriptions Prescription Sig Dispense Quantity Refills Last Filled Start Date End Date clindamycin (CLEOCIN) 150 mg Oral Capsule Take 3 Caps by mouth every 8 hours for 10 days. 90 Cap 10/27/2016 11/06/2016 ibuprofen (ADVIL;MOTRIN) 800 mg Oral Tablet Take 1 Tab by mouth every 8 hours as needed for up to 21 doses. 21 Tab 10/27/2016 11/10/2016 documented in this encounter Discharge Disposition Disposition Code Departure Means Destination Home or Self [facility] documented in this encounter ED Notes * Ken Beard MD - 10/27/2016 10:22 PM EST Chief Complaint Patient presents with ??? Ear Problem Pt reports bleeding to right ear about one hour [employer] to ED. Pt reports ear pain for 2 days. 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 The patient states that he has been having right ear pain for the past 2 days. He was trying to wait until Wednesday to go to [facility]. However he states that he had worsening pain and started having drainage out of his right ear today. He has any fevers, recent sick contacts or recent travel. He denies any bad food exposure. Has any history of previous ear infections. He says he is allergic to penicillin and develops a rash and swelling of his face. Allergies Allergen Reactions ??? Benadryl [Diphenhydramine Hcl] Itching ??? Ceclor [Cefaclor] ??? Penicillins Home Medications: Prior to Admission medications Medication Sig Start Date End Date Taking? Authorizing Provider albuterol (PROVENTIL HFA;VENTOLIN HFA) 90 mcg/actuation Inhl HFA Aerosol Inhaler Inhale 2 Puffs into the lungs every 6 hours as needed for Wheezing. Provider, Historical methocarbamol (ROBAXIN) 500 mg Oral Tablet Take 1 Tab by mouth 4 times daily as needed for Muscle spasms. 01/15/16 Michael Hernandez MD Past Medical History: Past Medical History Diagnosis Date ??? Asthma ??? Meningitis ??? PTSD (post-traumatic stress disorder) ??? 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 TBI (traumatic brain injury) ([facility]) Social History: reports that he has never smoked. He has never used smokeless tobacco. He reports that he uses illicit drugs, including Marijuana. He reports that he does not drink alcohol. Family History: No family history on file. Surgical History: No past surgical history on file. Review of Systems Constitutional: Negative for activity change, appetite change, chills and fever. HENT: Positive for ear pain and sore throat. Negative for congestion. Eyes: Negative for visual disturbance. Respiratory: Negative for cough and shortness of breath. Cardiovascular: Negative for chest pain and palpitations. Gastrointestinal: Negative for abdominal pain, constipation, diarrhea, nausea and vomiting. Musculoskeletal: Negative for back pain and neck pain. Skin: Negative for rash and wound. Neurological: Negative for dizziness and headaches. There were no vitals taken for this visit. Physical Exam Constitutional: He is oriented to person, place, and time. He appears well- developed and well-nourished. No distress. HENT: Head: Normocephalic and atraumatic. Right Ear: No lacerations. There is tenderness. No foreign bodies. No mastoid tenderness. A middle ear effusion is present. No hemotympanum. Left Ear: No lacerations. No tenderness. No foreign bodies. No mastoid tenderness. No middle ear effusion. No hemotympanum. Drainage from right ear Eyes: EOM are normal. Pupils are equal, round, and reactive to light. Neck: Normal range of motion. Cardiovascular: Normal rate and regular rhythm. Pulmonary/Chest: Effort normal and breath sounds normal. Musculoskeletal: Normal range of motion. He exhibits no edema. Lymphadenopathy: He has no cervical adenopathy. Neurological: He is alert and oriented to person, place, and time. Skin: Skin is warm and dry. Nursing note and vitals reviewed. Procedures Radiology/EKG/Labs: No results found for this visit on 10/27/16. ED Course: Appropriate laboratory and radiology studies reviewed The patient was seen and evaluated for right ear pain. History exam is consistent with otitis media. The patient is nontoxic in appearance and no evidence of mastoiditis, retropharyngeal infection, malignant otitis, or any other acute syndrome. The patient was given ibuprofen and clindamycin in the emergency department. Clindamycin was chosen given his penicillin allergy. He was given expectant management, strong return precautions and advised to follow up with PCP. ED Clinical Impression: Right acute otitis media (primary encounter diagnosis) Critical Care time Condition at Discharge/Transfer from Department: Improved This chart was completed using voice recognition technology and may contain unintended errors Ken Beard MD 10/27/16 0641 documented in this encounter Plan of Treatment Not on file documented as of this encounter Visit Diagnoses Diagnosis Right acute otitis media- Primary Unspecified otitis media documented in this encounter Administered Medications Inactive Administered Medications - up to 1 most recent administrations Medication Order MAR Action Action Date Dose Rate Site clindamycin (CLEOCIN) capsule 450 mg 450 mg, Oral, ONCE, 1 dose, On Wed10/27/16 at 2330 Given 10/27/2016 11:43 PM EST 450 mg ibuprofen (ADVIL;MOTRIN) tablet 800 mg 800 mg, Oral, ONCE, 1 dose, On Wed10/27/16 at 2330, If patient receiving scheduled ibuprofen (Caldolor) IV, hold oral ibuprofen until IV therapy completed. Given 10/27/2016 11:43 PM EST 800 mg documented in this encounter Active and Recently Administered Medications Times are shown in EST. Scheduled Medication Order 10/25/2016 10/26/2016 10/27/2016 clindamycin (CLEOCIN) capsule 450 mg (COMPLETED) 450 mg, Oral, ONCE, 1 dose, On Wed10/27/16 at 2330 2343 (Given - Provid er: Katelyn Johnson RN) ibuprofen (ADVIL;MOTRIN) tablet 800 mg (COMPLETED) 800 mg, Oral, ONCE, 1 dose, On Wed10/27/16 at 2330, If patient receiving scheduled ibuprofen (Caldolor) IV, hold oral ibuprofen until IV therapy completed. 2343 (Given - Provid er: Katelyn Johnson RN) documented in this encounter
--- OUTSIDE RECORDS SUMMARY | 2024-08-21 07:48 | XMS_ITS | Encounter Summary ---
Author Organization [place] [address] Care Team Providers Care Title Inspector Name Role Phone Unavailable Primary Care Provider Unavailabl e Reason for Visit * Reason Comments Otalgia right, 2 weeks,drain ing yellow., tx by urgernt care with antibiotics. swelling right neck, stiff neck, blurred vision Encounter Details Date Type Department Care Team (Late st Contact Info) Description 04/15/2011 7:40 PM EDT - 04/15/2011 10:52 PM EDT Emergency [place] [facility] [place] [address] John Alba MD [address] [place] [id number] Mastoiditis Discharge Disposition: Home or Self Care Social History Tobacco Use Types Packs/Day Years Used Date Smoking Tobacco: Never Smokeless Tobacco: Never Alcohol Use Standard Drinks/Week Comments No 0 (1 standard drink = 0.6 oz pur e alcohol) Sex and Gender Information Value Date Recorded Sex Assigned at Not on file Legal Sex Male 6:04 PM EDT Gender Identity Not on file Sexual Orientation Not on file documented as of this encounter Last Filed Vital Signs Vital Sign Reading Time Taken Comments Blood Pressure 112/71 04/15/2011 10:51 PM EDT Pulse 84 04/15/2011 10:51 PM EDT Temperature 36.9 ??C (98.4 ??F) 04/15/2011 7:29 PM ED T Respiratory Rate 18 04/15/2011 7:29 PM EDT Oxygen Saturation 99% 04/15/2011 10:51 PM EDT Inhaled Oxygen Concentration - - Weight 106.1 kg (234 lb) 04/15/2011 7:29 PM EDT Height 180.3 cm (5' 11 ) 04/15/2011 7:29 PM EDT Body Mass Index 32.64 04/15/2011 7:29 PM EDT documented in this encounter Discharge Instructions * Discharge Instructions* John Alba MD - 04/15/2011 9:47 PM EDT Return if worse documented in this encounter Medications at Time of Discharge acetaminophen (TYLENOL) 325 mg tablet Take by mouth every 4 hours as needed for Pain. 10/31/2012 ciprofloxacin (CIPRO) 500 mg tablet Take 1 Tab by mouth every 12 hours for 10 days. 20 Tab 0 04/15/2011 04/25/2011 hydrocodone-aceta minophen (LORTAB) 5-500 mg per tablet Take 1-2 Tabs by mouth every 6 hours as needed for Pain for 3 days. 12 Tab 0 04/15/2011 04/18/2011 documented as of this encounter Ordered Prescriptions Prescription Sig Dispense Quantity Refills Last Filled Start Date End Date hydrocodone-acetam inophen (LORTAB) 5-500 mg per tablet Take 1-2 Tabs by mouth every 6 hours as needed for Pain for 3 days. 12 Tab 0 04/15/2011 04/18/2011 ciprofloxacin (CIPRO) 500 mg tablet Take 1 Tab by mouth every 12 hours for 10 days. 20 Tab 0 04/15/2011 04/25/2011 documented in this encounter Discharge Disposition Disposition Code Departure Means Destination Home or Self Custodial documented in this encounter Progress Notes * Unknown, Unknown - 04/15/2011 7:18 PM EDT * Unknown, Unknown - 04/15/2011 7:18 PM EDT * Unknown, Unknown - 04/15/2011 7:16 PM EDT * Unknown, Unknown - 04/15/2011 7:16 PM EDT documented in this encounter Nursing Notes * Radha, Radha - 04/15/2011 11:53 PM EDT documented in this encounter ED Notes * Tari Ramachandran RN - 04/15/2011 10:48 PM EDT Discharge instructions given to patient who verbalized understanding and posed no questions. Pt awake, alert, MMM and pink, respers easy and unlabored, NAD. Out of ED ambulatory. RX received - yes Designated drive with pt - yes Pt verbalized understanding to not drive today - yes Condition: good * Tari Ramachandran RN - 04/15/2011 8:48 PM EDT Pt back from CT * Tari Ramachandran RN - 04/15/2011 8:24 PM EDT Labs and blood cultures collected * John Alba MD - 04/15/2011 8:04 PM EDT Chief Complaint Patient presents with ??? Otalgia right, 2 weeks,draining yellow., tx by urgernt care with antibiotics. swelling right neck, stiff neck, blurred vision HPI Comments: [id number] male complains of severe pain in the right ear, side of his face radiating down to the neck and jaw associated with yellow drainage from the ear canal. He has been seen by urgent care and placed on antibiotics now complains of increased stiffness in the neck and blurred vision. His reported a fever off and on at home as well.he said a previous history of mastoiditis andmeningitis. He does not seem to be improving with the Zithromax and ciprofloxacin drops. No chest pain or difficulty breathing The history is provided by the patient. Allergies Allergen Reactions ??? Penicillins ??? Ceclor (Cefaclor) Home Medications: Prior to Admission medications Medication Sig Start Date End Date Taking? Authorizing Provider azithromycin (ZITHROMAX) 250 mg tablet Take by mouth every 24 hours. Yes Historical Provider CIPROFLOXACIN HCL/DEXAMETH (CIPRODEX OTIC) Place in ear(s). Yes Historical Provider acetaminophen (TYLENOL) 325 mg tablet Take by mouth every 4 hours as needed for Pain. Yes Historical Provider Past Medical History: Past Medical History Diagnosis Date ??? Asthma ??? Meningitis ??? Seizures fibril seizuers ??? PTSD (post-traumatic stress disorder) ??? TBI (traumatic brain injury) Social History: reports that he has never smoked. He has never used smokeless tobacco. He reports that he does not currently drink alcohol or use illicit drugs. Family History: History reviewed. No pertinent family history. Surgical History: History reviewed. No pertinent past surgical history. Review of Systems Constitutional: Negative for fever and chills. Eyes: Negative. Respiratory: Negative for cough and shortness of breath. Cardiovascular: Negative for chest pain, palpitations and leg swelling. Gastrointestinal: Negative for nausea, vomiting, abdominal pain and diarrhea. Genitourinary: Negative for dysuria and frequency. Musculoskeletal: Negative. Skin: Negative for rash. Neurological: Negative. Psychiatric/Behavioral: Negative. All other systems reviewed and are negative. Blood pressure 120/76, pulse 88, temperature 98.4 ??F (36.9 ??C), temperature source Oral, resp. rate 18, height 5' 11 (1.803 m), weight 234 lb (106.142 kg), SpO2 97%. Physical Exam Nursing note and vitals reviewed. Constitutional: He is oriented. He appears well-developed and well-nourished. No distress. HENT: Head: Normocephalic and atraumatic. Left Ear: External ear normal. Purulent drainage is noted from the right EAC, he reports palpable tenderness over the right mastoid Eyes: Conjunctivae and extraocular motions are normal. Pupils are equal, round, and reactive to light. Neck: No rigidity, but complains of slight pain with range of motion, no mass noted Cardiovascular: Normal rate and regular rhythm. Exam reveals no gallop and no friction rub. No murmur heard. Pulmonary/Chest: Effort normal and breath sounds normal. Abdominal: Soft. Bowel sounds are normal. He exhibits no distension. No tenderness. Musculoskeletal: He exhibits no edema. Neurological: He is alert and oriented. Skin: Skin is warm and dry. No rash noted. Psychiatric: He has a normal mood and affect. Procedures Radiology/EKG/Labs: Results for orders placed during the hospital encounter of 04/15/11 CBC WITH AUTO DIFF Component Value Range ??? WBC 11.2 (*) 3.8-10.8 (x10(3)/mcL) ??? RBC 5.29 4.20-5.80 (x10(6)/mcL) ??? Hgb 15.6 13.2-17.1 (gm/dL) ??? Hct 48.0 38.5-50.0 (%) ??? MCV 90.7 80.0-100.0 (fL) ??? MCH 29.5 27.0-33.0 (pg) ??? MCHC 32.5 32.0-36.0 (gm/dL) ??? RDW 11.9 11.0-15.0 (%) ??? Platelet 327 140-400 (x10(3)/mcL) ??? MPV 7.2 (*) 7.5-11.5 (fL) BASIC METABOLIC PANEL Component Value Range ??? Sodium 139 135-146 (mmol/L) ??? Potassium 4.2 3.5-5.3 (mmol/L) ??? Chloride 103 98-110 (mmol/L) ??? Total CO2 25 21-33 (mmol/L) ??? Anion Gap 11 7-16 (mmol/L) ??? Calcium 9.8 8.6-10.2 (mg/dL) ??? Glucose Lvl 91 65-99 (mg/dL) ??? BUN 15 7-25 (mg/dL) ??? Creatinine 1.0 0.5-1.3 (mg/dL) ? ? GFR Afr Am >60 - ? ? GFR Non Afr Am >60 - CT MASTOIDS W CONTRAST Narrative: CT MASTOIDS W CONTRAST 04/15/2011. HISTORY: Right year pain with abnormal drainage. TECHNIQUE: 75 mL Isovue-370 contrast IV. No previous related imaging studies are available for comparison and correlation. There is near complete opacification of the right mastoid air cells with only a small amount of aerated air cells seen superiorly. No coalescent changes are identified. There is also abnormal fluid and/or soft tissue in the middle ear cavity surrounding the ossicles which are not destroyed or displaced. The scutum remains sharp and well-defined. There is thickening of the tissues lining the external auditory canal with some generalized increased enhancement. Small amount of soft tissue and/or fluid is within the external auditory canal. No discrete soft tissue abscess is identified. No abnormality of the brain is noted. Impression: IMPRESSION: Findings are consistent with the right otomastoiditis. In addition there is abnormal appearance of the right external auditory canal most consistent with otitis externa. AUTO DIFF Component Value Range ??? Neut Percent 64.8 40.0-80.0 (%) ??? Lymph Percent 21.6 15.0-45.0 (%) ??? [place] Percent 9.2 0.0-12.0 (%) ??? Eos Percent 1.3 0.0-8.0 (%) ??? Baso Percent 3.1 (*) 0.0-1.0 (%) ??? Neut# 7.26 1.50-7.80 (x10(3)/mcL) ??? Lymph# 2.42 0.85-3.90 (x10(3)/mcL) ??? Caribou# 1.03 (*) 0.20-0.95 (x10(3)/mcL) ??? Eos# 0.15 0.01-0.50 (x10(3)/mcL) ??? Baso# 0.35 (*) 0.00-0.20 (x10(3)/mcL) ED Course: Appropriate laboratory and radiology studies reviewed Patient an IV established and was given Dilaudid as needed for pain. After review of his CAT scan and discussion with Dr. Maddox for ENT, patient was given 400 mg of IV Cipro, a wound culture was obtained from the ear canal, a wick was placed in the canal. Patient is to call ENT office in the morning for an evaluation in the office tomorrow.he does not appear toxic at this point no evidence of meningismus per my exam.prescription for Cipro and Lortab are provided ED Clinical Impression: Acute mastoiditis Otitis externa Condition at Discharge/Transfer from Department: Zion Alba 04/15/11 2163 documented in this encounter Plan of Treatment Scheduled Orders Name Type Priority Associated Diagnoses Orde r Schedule SALINE LOCK IV IV STAT One Time f or 1 Occurrences starting 04/15/2011 until 04/15/2011 documented as of this encounter Procedures Procedure Name Priority Date/Time Associated Diagnosis Comments WOUND CULTURE (STAIN INCLUDED) STAT 04/15/2011 9:[address] MASTOIDS W CONTRAST STAT 04/15/2011 8:31 PM EDT DIFFERENTIAL STAT 04/15/2011 8:20 PM EDT BLOOD CULTURE (NO STAIN) STAT 04/15/2011 8:20 PM EDT CBC WITH DIFF STAT 04/15/2011 8:20 PM EDT BASIC METABOLIC PANEL STAT 04/15/2011 8:20 PM EDT documented in this encounter Results * WOUND CULTURE (04/15/2011 9:30 PM EDT) Final Sparse growth of Coagulase negative staphylococci #1 Very sparse growth of Coagulase negative staphylococci #2 Sparse growth of Gram positive rods suggestive of diphtheroids No further workup 04/19/2011 9:32:48 AM [facility] GS No slide sent/smear made after culture inoculated No organisms seen No WBC's seen [facility] Ear 04/15/2011 9:30 PM EDT 04/16/2011 6:52 AM EDT us John Alba MD MICROBIOLOGY - GENERAL OR DERABLES Final Result [facility] [address] [place] [address] * CT MASTOIDS W CONTRAST (04/15/2011 8:31 PM EDT) Anatomical Region Laterality Modality Head Computed Tomogra phy 04/15/2011 8:12 PM EDT Impressions 04/15/2011 8:50 PM EDT IMPRESSION: Findings are consistent with the right otomastoiditis. In addition there is abnormal appearance of the right external auditory canal most consistent with otitis externa. Narrative 04/15/2011 8:[address] MASTOIDS W CONTRAST ?? 04/15/2011. HISTORY: Right year pain with abnormal drainage. TECHNIQUE: 75 mL Isovue-370 contrast IV. No previous related imaging studies are available for comparison and correlation. There is near complete opacification of the right mastoid air cells with only a small amount of aerated air cells seen superiorly. No coalescent changes are identified. There is also abnormal fluid and/or soft tissue in the middle ear cavity surrounding the ossicles which are not destroyed or displaced. The scutum remains sharp and well-defined. There is thickening of the tissues lining the external auditory canal with some generalized increased enhancement. Small amount of soft tissue and/or fluid is within the external auditory canal. No discrete soft tissue abscess is identified. No abnormality of the brain is noted. Procedure Note Chele Guidry - 04/15/2011 CT MASTOIDS W CONTRAST 04/15/2011. HISTORY: Right year pain with abnormal drainage. TECHNIQUE: 75 mL Isovue-370 contrast IV. No previous related imaging studies are available for comparison andcorrelation. There is near complete opacification of the right mastoid air cells withonly a small amount of aerated air cells seen superiorly. No coalescent changes are identified.There is also abnormal fluid and/or soft tissue in the middle ear cavity surrounding theossicles which are not destroyed or displaced. The scutum remains sharp and well-defined.There is thickening of the tissues lining the external auditory canal with some generalizedincreased enhancement. Small amount of soft tissue and/or fluid is within the external auditorycanal. No discrete soft tissue abscess is identified. No abnormality of the brain is noted. IMPRESSION: Findings are consistent with the right otomastoiditis. Inaddition there is abnormal appearance of the right external auditory canal most consistentwith otitis externa. John Alba MD IM CT ORDERABLES Final R esult * (ABNORMAL) AUTO DIFF (04/15/2011 8:20 PM EDT) Neut Percent 64.8 40.0 - 80.0 % [facility] Lymph Percent 21.6 15.0 - 45.0 % [facility] Caribou Percent 9.2 0.0 - 12.0 % [facility] Eos Percent 1.3 0.0 - 8.0 % [facility] Baso Percent 3.1(H) 0.0 - 1.0 % [facility] Neut# 7.26 1.50 - 7.80 x10(3)/mcL [facility] Lymph# 2.42 0.85 - 3.90 x10(3)/mcL [facility] Caribou# 1.03(H) 0.20 - 0.95 x10(3)/mcL [facility] Eos# 0.15 0.01 - 0.50 x10(3)/[facility] Baso# 0.35(H) 0.00 - 0.20 x10(3)/[facility] Blood specimen (specimen) 04/15/2011 8:20 PM EDT 04/15/2011 8:24 PM EDT John Alba MD HEMATOLOGY ORDERABLES Fin al Result [facility] [address] [place] [address] * BLOOD CULTURE (04/15/2011 8:20 PM EDT) Final No growth at 5 days. [facility] Blood specimen (specimen) 04/15/2011 8:20 PM EDT 04/16/2011 12:58 AM EDT John Alba MD MICROBIOLOGY - GENERAL OR DERABLES Final Result [facility] [address] [place] [address] * BASIC METABOLIC PANEL (04/15/2011 8:20 PM EDT) Sodium 139 135 - 146 mmol/L [facility] Potassium 4.2 3.5 - 5.3 mmol/L [facility] Chloride 103 98 - 110 mmol/L [facility] Total CO2 25 21 - 33 mmol/L [facility] Anion Gap 11 7 - 16 mmol/L [facility] Calcium 9.8 8.6 - 10.2 mg/dL [facility] Glucose Lvl 91 65 - 99 mg/dL [facility] BUN 15 7 - 25 mg/dL [facility] Creatinine 1.0 0.5 - 1.3 mg/dL [facility] GFR Afr Am >60 [facility] Comment: GFR is estimated using creatinine, age, gender, and race. ??GFR has been validated for patients between 18 and 70 years of age. GFR has not been validated for women, patients with serious comorbid conditions, or persons with extremes of body size, muscle mass, or nutritional status. ??For additional information: ??www.kidney.org. Chronic kidney disease stage ? GFR (ml/min/1.73 square meters) ? Stage 3 ? 30 - 59 ? Stage 4 ? 15 - 29 ? Stage 5 ? 14 or less GFR Non Afr Am >60 [facility] Blood specimen (specimen) UPPER LIMB STRUCTURE / Unknown 04/15/2011 8:20 PM EDT 04/15/2011 8:24 PM EDT John Alba MD CHEMISTRY ORDERABLES Edit ed Performing Organization Address City/[facility] Co de Phone Number [facility] [address] [place] [address] * (ABNORMAL) CBC WITH AUTO DIFF (04/15/2011 8:20 PM EDT) WBC 11.2(H) 3.8 - 10.8 x10(3)/mcL [facility] RBC 5.29 4.20 - 5.80 x10(6)/mcL [facility] Hgb 15.6 13.2 - 17.1 gm/dL [facility] Hct 48.0 38.5 - 50.0 % [facility] MCV 90.7 80.0 - 100.0 fL [facility] MCH 29.5 27.0 - 33.0 pg [facility] MCHC 32.5 32.0 - 36.0 gm/dL [facility] RDW 11.9 11.0 - 15.0 % [facility] Platelet 327 140 - 400 x10(3)/mcL [facility] MPV 7.2(L) 7.5 - 11.5 fL [facility] Blood specimen (specimen) UPPER LIMB STRUCTURE / Unknown 04/15/2011 8:20 PM EDT 04/15/2011 8:24 PM EDT John Alba MD HEMATOLOGY ORDERABLES Fin al Result Performing Organization Address [facility] Co de Phone Number [facility] [address] [place] [address] documented in this encounter Visit Diagnoses Diagnosis Mastoiditis Unspecified mastoiditis documented in this encounter Administered Medications Inactive Administered Medications - up to 1 most recent administrations Medication Order MAR Action Action Date Dose Rate Site ciprofloxacin (CIPRO) IVPB 400 mg 400 mg, Intravenous, ONCE, 1 dose, On Wed04/15/11 at 2130, Administer over 60 Minutes IV Started 04/15/2011 9:41 PM EDT 400 mg 200 mL/hr HYDROmorphone (DILAUDID) injection 2 mg 2 mg, Intravenous, ONCE, 1 dose, On Wed04/15/11 at 2015 Given 04/15/2011 8:24 PM EDT 2 mg HYDROmorphone (DILAUDID) injection 2 mg 2 mg, Intravenous, ONCE, 1 dose, On Wed04/15/11 at 2114 Given 04/15/2011 9:31 PM EDT 2 mg iopamidol (ISOVUE-370) 76 % injection 75 mL 75 mL, Intravenous, ONCE PRN, 1 dose, Starting on Wed04/15/11 at 2030, Until Wed04/15/11 at 2030, Radiology Procedure, Radiology Given 04/15/2011 8:31 PM EDT 75 mL Left Arm ondansetron (ZOFRAN) 4 mg/2 mL injection 4 mg 4 mg, Intravenous, ONCE, 1 dose, On Wed04/15/11 at 2014 Given 04/15/2011 8:24 PM EDT 4 mg ondansetron (ZOFRAN) 4 mg/2 mL injection 4 mg 4 mg, Intravenous, ONCE, 1 dose, On Wed04/15/11 at 2229 Given 04/15/2011 10:29 PM EDT 4 mg documented in this encounter Historical Medications * This list may reflect changes made after this encounter. acetaminophen (TYLENOL) 325 mg tablet Take by mouth every 4 hours as needed for Pain. 10/31/2012 CIPROFLOXACIN HCL/DEXAMETH (CIPRODEX OTIC) Place in ear(s). 11/21/2011 azithromycin (ZITHROMAX) 250 mg tablet Take by mouth every 24 hours. 11/21/2011 added in this encounter Active and Recently Administered Medications Times are shown in EDT. Scheduled Medication Order 04/13/2011 04/14/2011 04/15/2011 ciprofloxacin (CIPRO) IVPB 400 mg (COMPLETED) 400 mg, Intravenous, ONCE, 1 dose, On Wed04/15/11 at 2129, Administer over 60 Minutes 2140 (IV Started - P rovider: Kate Cruz RN)2240 (IV STOP - Provider: Tari Ramachandran RN) HYDROmorphone (DILAUDID) injection 2 mg (COMPLETED) 2 mg, Intravenous, ONCE, 1 dose, On Wed04/15/11 at 2014 2023 (Given - Provid er: Tari Ramachandran RN) HYDROmorphone (DILAUDID) injection 2 mg (COMPLETED) 2 mg, Intravenous, ONCE, 1 dose, On Wed04/15/11 at 2114 2130 (Given - Provid er: Tari Ramachandran RN) ondansetron (ZOFRAN) 4 mg/2 mL injection 4 mg (COMPLETED) 4 mg, Intravenous, ONCE, 1 dose, On Wed04/15/11 at 2014 2023 (Given - Provid er: Tari Ramachandran RN) ondansetron (ZOFRAN) 4 mg/2 mL injection 4 mg (COMPLETED) 4 mg, Intravenous, ONCE, 1 dose, On Wed04/15/11 at 2230 2229 (Given - Provid er: Tari Ramachandran RN) PRN Medication Order 04/13/2011 04/14/2011 04/15/2011 iopamidol (ISOVUE-370) 76 % injection 75 mL (COMPLETED) 75 mL, Intravenous, ONCE PRN, 1 dose, Starting on Wed04/15/11 at 2030, Until Wed04/15/11 at 2030, Radiology Procedure, Radiology 2030 (Given - Provid er: Nila Avila, BODY TRIMMER UPHOLSTERER) documented in this encounter
--- OUTSIDE RECORDS SUMMARY | 2024-08-21 07:48 | XMS_ITS | Encounter Summary ---
Author Organization [place] [address] Care Team Providers Care Endocrinology Teacher Name Role Phone Unavailable Primary Care Provider Unavailabl e Encounter Details Date Type Department Care Team (Late st Contact Info) Description 05/29/2004 9:35 PM EDT - 05/30/2004 12:28 AM EDT Hospital Encounter [facility] Generic, Historical Provider Social History Tobacco Use Types Packs/Day Years [...]
--- OUTSIDE RECORDS SUMMARY | 2024-08-21 07:48 | XMS_ITS | Encounter Summary ---
Author Organization [facility] [place] [address] Care Team Providers Care Landscape Architecture Teacher Name Role Phone August England MD Primary Care Provider [phone] Encounter Details Date Type Department Care Team (Latest Contact Info) Description 12/06/2019 Travel Social History Tobacco Use Types Packs/Day [...] ideal body weight General No Jami Glover, INDUSTRIAL ELECTRICAL ENGINEER documented as of this encounter Visit Diagnoses Not on filedocumented in this encounter Care Teams Landscape Architecture Teacher Relationship Specialty Start Date End Date August England MD [address] [place] [address] PCP - General Family Medicine 07/13/19 documented as of this encounter
--- OUTSIDE RECORDS SUMMARY | 2024-08-21 07:48 | XMS_ITS | Encounter Summary ---
Author Organization [facility] Address [address] [place] [address] Care Team Providers Care Antenna Specialist Name Role Phone Unavailable Primary Care Provider Unavailabl e Encounter Details Date Type Department Care Team (Late st Contact Info) Description 01/19/2010 10:40 PM EDT - 01/22/2010 3:13 PM EDT Hospital Encounter HST 2B2 Physicians, [place] [address] Black Wilcox MD [address] [place] [address] Social History Tobacco Use Types Packs/Day Years Used Date Smoking Tobacco: Never Assessed Sex and Gender Information Value Date Recorded Sex Assigned at Not on file Legal Sex Male 6:04 PM EDT Gender Identity Not on file Sexual Orientation Not on file documented as of this encounter Discharge Summaries * Unknown, U - 04/15/2010 2:06 PM EDT documented in this encounter Progress Notes * Unknown, 07/25/2010 10:03 PM EDT * Unknown, 07/25/2010 10:03 PM EDT * Unknown, 07/24/2010 3:30 PM EDT * Unknown, 07/24/2010 3:30 PM EDT * Unknown, 07/24/2010 3:30 PM EDT * Unknown, 07/24/2010 6:32 AM EDT documented in this encounter H&P Notes * Unknown, 04/15/2010 2:12 PM EDT documented in this encounter Procedure Notes * Unknown, 07/25/2010 2:09 AM EDTAssociated Order(s): SCANNED LAB FINAL REPORT * Unknown, 07/24/2010 9:06 PM EDTAssociated Order(s): SCANNED LAB ADDENDUM REPORT * Unknown, 07/24/2010 3:30 PM EDT * Unknown, 07/24/2010 3:30 PM EDTAssociated Order(s): SCANNED ANESTHESIA FORMS * Unknown, 07/24/2010 3:30 PM EDT * Unknown, 07/24/2010 3:30 PM EDTAssociated Order(s): SCANNED PRE/POST PROCEDURES * Unknown, 07/24/2010 2:42 PM EDTAssociated Order(s): SCANNED LAB ADDENDUM REPORT * Unknown, 07/24/2010 12:04 PM EDTAssociated Order(s): SCANNED LAB ADDENDUM REPORT * Unknown, 07/24/2010 9:37 AM EDTAssociated Order(s): SCANNED LAB ADDENDUM REPORT * Unknown, 04/15/2010 2:11 PM EDTAssociated Order(s): SCANNED OR REPORT documented in this encounter Nursing Notes * Unknown, 07/24/2010 3:30 PM EDT * Unknown, U - 07/24/2010 3:30 PM EDT * Unknown, 07/24/2010 3:30 PM EDT * Unknown, 07/24/2010 3:30 PM EDT * Unknown, 07/23/2010 4:35 PM EDT documented in this encounter ED Notes * Unknown, - 07/25/2010 9:33 PM EDT * Unknown, 07/25/2010 9:33 PM EDT documented in this encounter Plan of Treatment Not on file documented as of this encounter Procedures Procedure Name Priority Date/Time Associated Diagnosis Comments SCANNED LAB FINAL REPORT 07/25/2010 12:00 AM EDT SCANNED PRE/POST PROCEDURES 07/24/2010 12:00 AM EDT SCANNED LAB ADDENDUM REPORT 07/24/2010 12:00 AM EDT SCANNED LAB ADDENDUM REPORT 07/24/2010 12:00 AM EDT SCANNED LAB ADDENDUM REPORT 07/24/2010 12:00 AM EDT SCANNED LAB ADDENDUM REPORT 07/24/2010 12:00 AM EDT SCANNED ANESTHESIA FORMS 07/24/2010 12:00 AM EDT SCANNED OR REPORT 04/15/2010 12: 00 AM EDT DIFFERENTIAL Routine 01/21/2010 7:13 AM EDT CBC WITH DIFF Routine 01/21/2010 7:13 AM EDT VANCOMYCIN LEVEL TROUGH Timed 01/21/2010 7:13 AM EDT BASIC METABOLIC PANEL Routine 01/21/2010 7:13 AM EDT WOUND CULTURE (STAIN INCLUDED) STAT 01/20/2010 10:39 AM EDT ANAEROBIC CULTURE (NO STAIN) STAT 01/20/2010 10:39 AM EDT DIFFERENTIAL STAT 01/19/2010 10:46 PM EDT BLOOD CULTURE (NO STAIN) STAT 01/19/2010 10:46 PM EDT BLOOD CULTURE (NO STAIN) STAT 01/19/2010 10:46 PM EDT CBC WITH DIFF STAT 01/19/2010 10:46 PM EDT BASIC METABOLIC PANEL STAT 01/19/2010 10:46 PM EDT documented in this encounter Results * SCANNED LAB FINAL REPORT (07/25/2010 12:00 AM EDT) Narrative 07/25/2010 2:09 AM EDT Ordered by an unspecified provider. Transcriptions Unknown, U - 07/25/2010 2:09 AM EDT us U Unknown HEMATOLOGY ORDERABLES Final Resu lt * SCANNED ANESTHESIA FORMS (07/24/2010 12:00 AM EDT) Narrative 07/24/2010 3:31 PM EDT Ordered by an unspecified provider. Transcriptions Unknown, U - 07/24/2010 3:30 PM EDT us U Unknown PROCEDURE/MINOR SURGICAL ORDERAB LES Final Result * SCANNED PRE/POST PROCEDURES (07/24/2010 12:00 AM EDT) Narrative 07/24/2010 3:31 PM EDT Ordered by an unspecified provider. Transcriptions Unknown, U - 07/24/2010 3:30 PM EDT us U Unknown PROCEDURE/MINOR SURGICAL ORDERAB LES Final Result * SCANNED LAB ADDENDUM REPORT (07/24/2010 12:00 AM EDT) Narrative 07/24/2010 9:07 PM EDT Ordered by an unspecified provider. Transcriptions Unknown, U - 07/24/2010 9:06 PM EDT us U Unknown HEMATOLOGY ORDERABLES Final Resu lt * SCANNED LAB ADDENDUM REPORT (07/24/2010 12:00 AM EDT) Narrative 07/24/2010 2:42 PM EDT Ordered by an unspecified provider. Transcriptions Unknown, U - 07/24/2010 2:42 PM EDT us U Unknown HEMATOLOGY ORDERABLES Final Resu lt * SCANNED LAB ADDENDUM REPORT (07/24/2010 12:00 AM EDT) Narrative 07/24/2010 12:05 PM EDT Ordered by an unspecified provider. Transcriptions Unknown, U - 07/24/2010 12:04 PM EDT us U Unknown HEMATOLOGY ORDERABLES Final Resu lt * SCANNED LAB ADDENDUM REPORT (07/24/2010 12:00 AM EDT) Narrative 07/24/2010 9:38 AM EDT Ordered by an unspecified provider. Transcriptions Unknown, U - 07/24/2010 9:37 AM EDT us U Unknown HEMATOLOGY ORDERABLES Final Resu lt * SCANNED OR REPORT (04/15/2010 12:00 AM EDT) Narrative 04/16/2010 3:53 PM EDT Ordered by an unspecified provider. Transcriptions Unknown, U - 04/15/2010 2:11 PM EDT us U Unknown PROCEDURE/MINOR SURGICAL ORDERAB LES Final Result * VANCOMYCIN LEVEL TROUGH (01/21/2010 7:13 AM EDT) Vanco Tr 7.72 7.00 - 15.00 mcg/mL [facility] Blood specimen (specimen) 01/21/2010 7:13 AM EDT 01/21/2010 7:51 AM EDT Black Wilcox MD CHEMISTRY ORDERABLES Xenia oglesby Result [facility] [address] [place] [address] * (ABNORMAL) BASIC METABOLIC PANEL (01/21/2010 7:13 AM EDT) Pathologist [facility] Sodium 139 135 - 143 mEq/L [facility] Potassium 4.5 3.5 - 5.0 mEq/L [facility] Chloride 108 98 - 108 mEq/L [facility] Total CO2 29 22 - 31 mEq/L [facility] Calcium 8.4(L) 8.6 - 10.3 mg/dL [facility] Glucose Lvl 98 72 - 112 mg/dL [facility] BUN 13 8 - 23 mg/dL [facility] Creatinine 0.8 0.7 - 1.3 mg/dL [facility] GFR Afr Am >60 [facility] Comment: GFR is estimated using creatinine, [...] or less GFR Non Afr Am >60 [facility] Blood specimen (specimen) 01/21/2010 7:13 AM EDT 01/21/2010 7:51 AM EDT Black Wilcox MD CHEMISTRY ORDERABLES Edit ed Performing Organization Address City/State/[facility] Co de Phone Number [facility] [address] [place] [address] * (ABNORMAL) AUTO DIFF (01/21/2010 7:13 AM EDT) Neut Percent 74.4(H) 40.0 - 70.0 % [facility] Lymph Percent 14.9(L) 17.0 - 46.0 % [facility] Coles Percent 10.3 4.0 - 12.0 % [facility] Eos Percent 0.1 0.0 - 6.0 % [facility] Baso Percent 0.3 0.0 - 2.0 % [facility] Neut# 6.8 1.8 - 7.7 x10(3)/mcL [facility] Lymph# 1.4 1.0 - 4.8 x10(3)/mcL [facility] Coles# 0.9 0.0 - 1.3 x10(3)/mcL [facility] Eos# 0.0(L) 0.1 - 0.5 x10(3)/mcL [facility] Baso# 0.0 0.0 - 0.2 x10(3)/[facility] Blood specimen (specimen) 01/21/2010 7:13 AM EDT 01/21/2010 7:51 AM EDT Black Wilcox MD HEMATOLOGY ORDERABLES Fin al Result Performing Organization Address [facility] de Phone Number [facility] [address] [place] [address] * (ABNORMAL) COMPLETE BLOOD COUNT (01/21/2010 7:13 AM EDT) WBC 9.2 4.0 - 11.0 x10(3)/mcL [facility] RBC 4.09(L) 4.50 - 5.90 x10(6)/mcL [facility] Hgb 12.7(L) 13.5 - 17.1 gm/dL [facility] Hct 37.1(L) 40.0 - 50.2 % [facility] MCV 90.7 80.0 - 95.8 fL [facility] MCH 31.0 27.0 - 33.2 pg [facility] MCHC 34.2 33.0 - 36.0 gm/dL [facility] RDW 12.1 11.5 - 14.5 % [facility] Platelet 284 150 - 400 x10(3)/mcL [facility] MPV 7.2 7.0 - 12.0 fL [facility] Blood specimen (specimen) 01/21/2010 7:13 AM EDT 01/21/2010 7:51 AM EDT Narrative [facility] - 01/21/2010 7:54 AM EDT WITH DIFF Black Wilcox MD HEMATOLOGY ORDERABLES Fin al Result Performing Organization Address [facility] de Phone Number [facility] [address] [place] [address] * ANAEROBIC CULTURE (01/20/2010 10:39 AM EDT) Final Abundant growth of anaerobic Gram negative bettye suspect Bacteroides/Pr evotella species Beta-lactamase positive No further isolates [facility] Cyst Fluid 01/20/2010 10:3 9 AM EDT 01/20/2010 10:44 AM EDT Black Wilcox MD MICROBIOLOGY - GENERAL OR DERABLES Final Result Performing Organization Address [facility] Co de Phone Number [facility] [address] [place] [address] * WOUND CULTURE (01/20/2010 10:39 AM EDT) GS Abundant WBC's Abundant Gram positive cocci suggestive of staphylococci Moderate Gram positive cocci suggestive of streptococci Abundant Gram negative rods Few Gram positive rods [facility] Final Sparse growth of Gram positive rods suggestive of diphtheroids Sparse growth of alpha hemolytic Streptococci not Enterococcus species No further workup [facility] Fluid 01/20/2010 10:3 9 AM EDT 01/20/2010 10:44 AM EDT Black Wilcox MD MICROBIOLOGY - GENERAL OR DERABLES Final Result Performing Organization Address [facility] Co de Phone Number [facility] [address] [place] [address] * BLOOD CULTURE (01/19/2010 10:46 PM EDT) Final No growth at 5 days. [facility] Blood specimen (specimen) 01/19/2010 10:46 PM EDT 01/20/2010 2:02 AM EDT Melody Seals APRN MICROBIOLOGY - GENERAL ORDER ADAM Final Result Performing Organization Address [facility] de Phone Number [facility] [address] [place] [address] * BLOOD CULTURE (01/19/2010 10:46 PM EDT) Final Growth of Coagulase negative staphylococci Possible contaminant No further workup [facility] Blood specimen (specimen) 01/19/2010 10:46 PM EDT 01/20/2010 2:02 AM EDT Melody Seals APRN MICROBIOLOGY - GENERAL ORDER ADAM Final Result Performing Organization Address [facility] Co de Phone Number [facility] [address] [place] [address] * (ABNORMAL) BASIC METABOLIC PANEL (01/19/2010 10:46 PM EDT) [facility] Sodium 134(L) 135 - 143 mEq/L [facility] Potassium 3.8 3.5 - 5.0 mEq/L [facility] Chloride 101 98 - 108 mEq/L [facility] Total CO2 28 22 - 31 mEq/L [facility] Calcium 9.3 8.6 - 10.3 mg/dL [facility] Glucose Lvl 87 72 - 112 mg/dL [facility] BUN 14 8 - 23 mg/dL [facility] Creatinine 1.2 0.7 - 1.3 mg/dL [facility] GFR Afr Am >60 [facility] Comment: GFR is estimated using creatinine, [...] or less GFR Non Afr Am >60 [facility] Blood specimen (specimen) 01/19/2010 10:46 PM EDT 01/19/2010 10:52 PM EDT us Melody Seals APRN CHEMISTRY ORDERABLES Edited Performing Organization Address [facility] Co de Phone Number [facility] [address] [place] [address] * (ABNORMAL) AUTO DIFF (01/19/2010 10:46 PM EDT) Neut Percent 71.9(H) 40.0 - 70.0 % [facility] Lymph Percent 17.4 17.0 - 46.0 % [facility] Coles Percent 9.0 4.0 - 12.0 % [facility] Eos Percent 0.8 0.0 - 6.0 % [facility] Baso Percent 0.9 0.0 - 2.0 % [facility] Neut# 8.6(H) 1.8 - 7.7 x10(3)/mcL [facility] Lymph# 2.1 1.0 - 4.8 x10(3)/[facility] Coles# 1.1 0.0 - 1.3 x10(3)/mcL [facility] Eos# 0.1 0.1 - 0.5 x10(3)/[facility] Baso# 0.1 0.0 - 0.2 x10(3)/[facility] Blood specimen (specimen) 01/19/2010 10:46 PM EDT 01/19/2010 10:52 PM EDT us Melody Seals APRN HEMATOLOGY ORDERABLES Final Result Performing Organization Address [facility] Co de Phone Number [facility] [address] [place] [address] * (ABNORMAL) COMPLETE BLOOD COUNT (01/19/2010 10:46 PM EDT) WBC 12.0(H) 4.0 - 11.0 x10(3)/mcL [facility] RBC 4.59 4.50 - 5.90 x10(6)/mcL [facility] Hgb 14.2 13.5 - 17.1 gm/dL [facility] Hct 41.4 40.0 - 50.2 % [facility] MCV 90.2 80.0 - 95.8 fL [facility] MCH 31.0 27.0 - 33.2 pg [facility] MCHC 34.4 33.0 - 36.0 gm/dL [facility] RDW 12.1 11.5 - 14.5 % [facility] Platelet 295 150 - 400 x10(3)/mcL [facility] MPV 7.0 7.0 - 12.0 fL [facility] Blood specimen (specimen) 01/19/2010 10:46 PM EDT 01/19/2010 10:52 PM EDT Melody Saels LOOP CUTTER HEMATOLOGY ORDERABLES Final Result [facility] [address] [place] [address] documented in this encounter Visit Diagnoses * Initial Assessments - Unknown, U - 07/24/2010 3:30 PM EDT documented in this encounter
--- OUTSIDE RECORDS SUMMARY | 2024-08-21 07:48 | XMS_ITS | Encounter Summary ---
Author Organization [place] [address] Care Team Providers Care Payroll Master Name Role Phone Unavailable Primary Care Provider Unavailabl e Encounter Details Date Type Department Care Team (Late st Contact Info) Description 01/18/2010 12:36 PM EDT - 01/18/2010 1:23 PM EDT Hospital Encounter HST E/D [facility] Physicians, [facility] [place] [address] Brittani Watkins MD [address] [place] [id number] Social History Tobacco Use Types Packs/Day Years Used Date Smoking Tobacco: Never Assessed Sex and Gender Information Value Date Recorded Sex Assigned at Not on file Legal Sex Male 6:04 PM EDT Gender Identity Not on file Sexual Orientation Not on file documented as of this encounter Progress Notes * Unknown, 07/26/2010 1:32 AM EDT * Unknown, 07/26/2010 1:32 AM EDT documented in this encounter ED Notes * Unknown, 07/26/2010 12:45 AM EDT * Unknown, 07/26/2010 12:45 AM EDT * Unknown, - 01/18/2010 12:00 AM EDT documented in this encounter Plan of Treatment Not on file documented as of this encounter Visit Diagnoses Not on filedocumented in this encounter
--- OUTSIDE RECORDS SUMMARY | 2024-08-21 07:48 | XMS_ITS | Encounter Summary ---
Author Organization [place] [address] Care Team Providers Care Pizza Driver Name Role Phone Unavailable Primary Care Provider Unavailabl e Encounter Details Date Type Department Care Team (Late st Contact Info) Description 02/23/2004 8:23 AM EDT - 02/28/2004 1:19 PM EDT Hospital Encounter HST [id number] [facility] Generic, Historical Provider Social History Tobacco [...]
--- OUTSIDE RECORDS SUMMARY | 2024-08-21 07:48 | XMS_ITS | Encounter Summary ---
Author Organization [facility] [place] [address] Care Team Providers Care Manager Cosmetic Name Role Phone Unavailable Primary Care Provider Unavailabl e Encounter Details Date Type Department Care Team (Late st Contact Info) Description 10/26/2002 3:25 PM EST - 10/26/2002 4:50 PM EST Hospital Encounter HST [facility] Generic, Historical Provider Social History Tobacco Use [...]
--- OUTSIDE RECORDS SUMMARY | 2024-08-21 07:48 | XMS_ITS | Encounter Summary ---
Author Organization [place] [address] Care Team Providers Care Entry Processor Name Role Phone August England MD Primary Care Provider [phone] Reason for Visit * Reason Comments Hand Pain R hand, middle finge r Encounter Details Date Type Department Care Team (Latest Contact Info) Description 07/10/2020 1:45 PM EDT Office Visit [facility] [address] [place] [address] August England MD [address] [place] [address] Paronychia of finger, right (Primary Dx); History of asthma Social History Tobacco Use Types Packs/Day Years [...] PM EDT documented as of this encounter Last Filed Vital Signs Vital Sign Reading Time Taken Comments Blood Pressure 118/84 07/10/2020 1:52 PM EDT Pulse 102 07/10/2020 1:52 PM EDT Temperature 36.9 ??C (98.4 ??F) 07/10/2020 1:52 PM ED T Respiratory Rate - - Oxygen Saturation 97% 07/10/2020 1:52 PM EDT Inhaled Oxygen Concentration - - Weight 125.3 kg (276 lb 3.2 oz) 07/10/2020 1:52 PM EDT Height 176.5 cm (5' 9.5 ) 07/10/2020 1:52 PM EDT Body Mass Index 40.2 07/10/2020 1:52 PM EDT documented in this encounter Functional Status [...] Inhl HFA Aerosol InhalerIndications :History of asthma Inhale 2 Puffs into the lungs every 4 hours as needed for Wheezing. 1 Inhaler 2 07/10/2020 12/05/2020 clindamycin (CLEOCIN) 300 mg Oral CapsuleIndications :Paronychia of finger, right Take 1 Cap by mouth 3 times daily for 7 days. 21 Cap 07/10/2020 07/17/2020 documented in this encounter Progress Notes * August England MD - 07/10/2020 1:45 PM EDT Images from the original note were not included. Assessment Diagnoses and all orders for this visit: Paronychia of finger, right - clindamycin (CLEOCIN) 300 mg Oral Capsule; Take 1 Cap by mouth 3 times daily for 7 days. Dispense: 21 Cap; Refill: 0 History of asthma - albuterol (PROVENTIL HFA;VENTOLIN HFA) 90 mcg/actuation Inhl HFA Aerosol Inhaler; Inhale 2 Puffs into the lungs every 4 hours as needed for Wheezing. Dispense: 1 Inhaler; Refill: 2 Progress Note: Vitals: 07/10/20 1352 BP: 118/84 BP Location: Left arm Patient Position: Sitting Pulse: 102 Temp: 98.4 ??F (36.9 ??C) TempSrc: Forehead SpO2: 97% Weight: 276 lb 3.2 oz (125.3 kg) Height: 5' 9.5 (1.765 m) SUBJECTIVE: Chief Complaint Patient presents with ??? Hand Pain R hand, middle finger HPI: Zi Johnson is a 35yo male who presented today with an acutely swollen and painful right middle finger. He first noticed the symptoms on Wednesday (five days ago) and they have progressed since.His finger is red and painful, but he denies any numbness or itching. He has occasional hangnails on this finger, but cannot recall if he had one recently. He denies any fever, fatigues, or other signs of illness. Review of Systems Constitutional: Negative for appetite change, chills, diaphoresis, fatigue and fever. OBJECTIVE: Physical Exam HENT: Head: Normocephalic and atraumatic. Nose: Nose normal. Mouth/Throat: Mouth: Mucous membranes are moist. Pharynx: Oropharynx is clear. Eyes: Extraocular Movements: Extraocular movements intact. Conjunctiva/sclera: Conjunctivae normal. Pupils: Pupils are equal, round, and reactive to light. Neck: Musculoskeletal: Normal range of motion and neck supple. Vascular: No carotid bruit. Cardiovascular: Rate and Rhythm: Normal rate and regular rhythm. Pulses: Normal pulses. Heart sounds: Normal heart sounds. Pulmonary: Effort: Pulmonary effort is normal. Breath sounds: Normal breath sounds. Abdominal: General: Abdomen is flat. Bowel sounds are normal. Palpations: Abdomen is soft. Musculoskeletal: General: Swelling and tenderness present. Arms: Comments: Erythematous and swollen R. distal 3rd phalanx Tenderness in R. 3rd phalanx at DIP and PIP Full range of motion in all fingers Skin: General: Skin is warm and dry. Capillary Refill: Capillary refill takes less than 2 seconds. Findings: Erythema and lesion present. Neurological: General: No focal deficit present. Mental Status: He is alert and oriented to person, place, and time. Psychiatric: Mood and Affect: Mood normal. Behavior: Behavior normal. Thought Content: Thought content normal. documented in this encounter Plan of Treatment Not on file documented as of this encounter Goals Goal Patient Goal Type Associated Problems Recent Progress Patient-Stated? Author Maintain a healthy diet, exercise regularly and maintain an ideal body weight General Jami Sanches, MANAGER STORY documented as of this encounter Visit Diagnoses Diagnosis Paronychia of finger, right- Primary History of asthma Personal history of other diseases of respiratory system documented in this encounter Care Teams Entry Processor Relationship Specialty Start Date End Date August England MD [address] [place] [id number] PCP - General Family Medicine 07/13/19 documented as of this encounter
--- OUTSIDE RECORDS SUMMARY | 2024-08-21 07:48 | XMS_ITS | Encounter Summary ---
Author Organization [facility] [place] [address] Care Team Providers Care Php Website Developer Name Role Phone August England MD Primary Care Provider Encounter Details Date Type Department Care Team (Latest Contact Info) Description 07/09/2020 Travel Social History Tobacco Use Types Packs/Day Years Used Date Smoking Tobacco: Never Smokeless Tobacco: Never Alcohol Use Standard Drinks/Week Comments No 0 (1 standard drink = 0.6 oz pur e alcohol) occasional PHQ-2 Answer Date Recorded PHQ-2 Total Score 0 07/10/2020 Sex and Gender Information Value Date Recorded Sex Assigned at Not on file Legal Sex Male 6:04 PM EDT Gender Identity Not on file Sexual Orientation Not on file COVID-19 Exposure Response Date Recorded In the last month, have you been in contact with someone who was confirmed or suspected to have Coronavirus / COVID-19? No / Unsure 07/09/2020 1:37 PM EDT documented as of this encounter Plan of Treatment Not on file documented as of this encounter Goals Goal Patient Goal Type Associated Problems Recent Progress Patient-Stated? Author Maintain a healthy diet, exercise regularly and maintain an ideal body weight General No Jami Glover CMA documented as of this encounter Visit Diagnoses Not on filedocumented in this encounter Care Teams Php Website Developer Relationship Specialty Start Date End Date August England MD [address] [place] [address] PCP - General Family Medicine 07/13/19 documented as of this encounter
--- OUTSIDE RECORDS SUMMARY | 2024-08-21 07:48 | XMS_ITS | Encounter Summary ---
Author Organization [place] [address] Care Team Providers Care Equipment Monitor Phototypesetting Name Role Phone Unavailable Primary Care Provider Unavailabl e Reason for Visit * Reason Comments Nasal Congestion Congestion: Pt repor ts being sick for 2 days, pt reports chest congestion, body aches, fever, nausea, CPTA: tylenol x 1.5 hrs ago Encounter Details Date Type Department Care Team (Late st Contact Info) Description 11/30/2018 6:48 AM EST - 11/30/2018 7:26 AM EST Emergency [facility] [address] [place] [address] Duong Steve, DO [address] [place] [address] Acute URI (Primary Dx); Acute suppurative otitis media of right ear without spontaneous rupture of tympanic membrane, recurrence not specified; Influenza A Discharge Disposition: Home or Self Care Social [...] Sign Reading Time Taken Comments Blood Pressure 154/91 11/30/2018 6:45 AM EST Pulse 115 11/30/2018 6:45 AM EST Temperature 38 ??C (100.4 ??F) 11/30/2018 6:45 AM EST Respiratory Rate 19 11/30/2018 6:45 AM EST Oxygen Saturation 98% 11/30/2018 6:45 AM EST Inhaled Oxygen Concentration - - Weight 113.4 kg (250 lb) 11/30/2018 6:45 AM EST Height 180.3 cm (5' 11 ) 11/30/2018 6:45 AM EST Body Mass Index 34.87 11/30/2018 6:45 AM EST documented in this encounter Discharge Instructions * Discharge Instructions* Duong Steve DO - 11/30/2018 7:11 AM EST Start Zithromax daily. Phenergan with codeine for cough at bedtime. Tessalon for cough during the day. Motrin for fever or aches. Start Tamiflu * Attachments The following attachments cannot be sent through Care Everywhere. * Otitis Media Adult [id number] (Burkinan) * Influenza Adult (Burkinan) documented in this encounter Medications at Time of Discharge azithromycin (ZITHROMAX) 250 mg Oral Tablet Take 1 Tab by mouth daily for 4 days. 4 Tab 11/30/2018 12/04/2018 benzonatate (TESSALON) 100 mg Oral Capsule Take 1 Cap by mouth 3 times daily as needed for Cough for up to 30 days. 14 Cap 11/30/2018 12/30/2018 oseltamivir (TAMIFLU) 75 mg Oral Capsule Take 1 Cap by mouth 2 times daily for 5 days. 10 Cap 11/30/2018 12/05/2018 promethazine (PHENERGAN) 25 mg Oral Tablet Take 1 Tab by mouth 3 times daily as needed for Nausea for up to 30 days. 10 Tab 11/30/2018 12/30/2018 promethazine-code ine (PHENERGAN WITH CODEINE) 6.25-10 mg/5 mL Oral Syrup Take 5 mL by mouth every 6 hours as needed for Other (cough) for up to 7 days. 60 mL 11/30/2018 12/07/2018 documented as of this encounter Ordered Prescriptions Prescription Sig Dispense Quantity Refills Last Filled Start Date End Date oseltamivir (TAMIFLU) 75 mg Oral Capsule Take 1 Cap by mouth 2 times daily for 5 days. 10 Cap 11/30/2018 12/05/2018 azithromycin (ZITHROMAX) 250 mg Oral Tablet Take 1 Tab by mouth daily for 4 days. 4 Tab 11/30/2018 12/04/2018 benzonatate (TESSALON) 100 mg Oral Capsule Take 1 Cap by mouth 3 times daily as needed for Cough for up to 30 days. 14 Cap 11/30/2018 12/30/2018 promethazine-codei ne (PHENERGAN WITH CODEINE) 6.25-10 mg/5 mL Oral Syrup Take 5 mL by mouth every 6 hours as needed for Other (cough) for up to 7 days. 60 mL 11/30/2018 12/07/2018 promethazine (PHENERGAN) 25 mg Oral Tablet Take 1 Tab by mouth 3 times daily as needed for Nausea for up to 30 days. 10 Tab 11/30/2018 12/30/2018 documented in this encounter Discharge Disposition Disposition Code Departure Means Destination Home or Self Long Term documented in this encounter ED Notes * Duong Steve, - 11/30/2018 6:40 AM EST Chief Complaint Patient presents with ??? Nasal Congestion Congestion: Pt reports being sick for 2 days, pt reports chest congestion, body aches, fever, nausea, CPTA: tylenol x 1.5 hrs ago Patient complains of cough and congestion and body aches the last 2 days. He also has an earache on the right. Symptoms have been intermittent in duration. Moderate in severity Patient History Allergies Allergen Reactions ??? Benadryl [Diphenhydramine Hcl] Itching ??? Ceclor [Cefaclor] ??? Penicillins Home Medications: Prior to Admission medications Not on File Past Medical History: Past Medical History: Diagnosis Date ??? Asthma ??? Meningitis ??? PTSD (post-traumatic stress disorder) ??? 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 TBI (traumatic brain injury) ([facility]) Social History: reports that he has never smoked. He has never used smokeless tobacco. He reports that he does not drink alcohol or use drugs. Family History: No family history on file. Surgical History: No past surgical history on file. Review of Systems Review of Systems Constitutional: Negative for chills and fever. HENT: Positive for congestion and ear pain. Eyes: Negative. Respiratory: Positive for cough. Negative for shortness of breath. Cardiovascular: Negative for chest pain, palpitations and leg swelling. Gastrointestinal: Negative for abdominal pain, diarrhea, nausea and vomiting. Genitourinary: Negative for dysuria and frequency. Musculoskeletal: Negative. Skin: Negative for rash. Neurological: Negative. Psychiatric/Behavioral: Negative. All other systems reviewed and are negative. Physical Exam Blood pressure (!) 154/91, pulse 115, temperature 100.4 ??F (38 ??C), temperature source Oral, resp. rate 19, height 5' 11 (1.803 m), weight 250 lb (113.4 kg), SpO2 98 %. Physical Exam Constitutional: He is oriented to person, place, and time. He appears well- developed and well-nourished. No distress. HENT: Mouth/Throat: Oropharynx is clear and moist. Throat is minimally red with no exudates. No nuchal rigidity. Right TM is dull. Left TM is mildly retracted Eyes: Pupils are equal, round, and reactive to light. Conjunctivae and EOM are normal. Neck: Normal range of motion. Neck supple. Cardiovascular: Normal rate and regular rhythm. Exam reveals no gallop and no friction rub. No murmur heard. Pulmonary/Chest: Effort normal. Patient has a few diffuse rhonchi Abdominal: Soft. Bowel sounds are normal. He exhibits no distension. There is no tenderness. Musculoskeletal: He exhibits no edema. Lymphadenopathy: He has no cervical adenopathy. Neurological: He is alert and oriented to person, place, and time. Skin: Skin is warm and dry. No rash noted. Psychiatric: He has a normal mood and affect. Nursing note and vitals reviewed. Procedures Radiology/EKG/Labs: Results for orders placed or performed during the hospital encounter of 11/30/18 INFLUENZA A/B ANTIGENS Result Value Ref Range Influ A Ag Detected (A) Not Detected Influ B Ag Not Detected Not Detected Narrative Negative or Invalid results in patients with high clinical suspicion should be verified with RT-PCR, available as Respiratory Viral Mini Panel ([id number]) in [facility]. The WHO recommends molecular testing (Respiratory Viral DNA Test) during periods of low influenza activity instead of rapid tests. Should rapid tests be used, then both positive and negative test results should be confirmed by a molecular method. The WHO also recommends confirmatory testing by a molecular method (Respiratory Viral DNA Test) for all negative rapid test results during seasonal occurrence of influenza. ED Course: Appropriate laboratory and radiology studies reviewed Tylenol, Zithromax, Zofran by mouth. Prescription for Phenergan With Codeine. Tessalon, Zithromax Prescription for Tamiflu ED Clinical Impression: Otitis media right. Bronchitis. Influenza Critical Care time Condition at Discharge/Transfer from Department: Stable This chart was completed using voice recognition technology and may contain unintended errors Duong Steve DO 11/30/18653 Duong Steve DO 12/02/182 documented in this encounter Plan of Treatment Not on file documented as of this encounter Procedures Procedure Name Priority Date/Time Associated Diagnosis Comments INFLUENZA A/B ANTIGENS Routine 11/30/2018 6:50 AM EST documented in this encounter Results * (ABNORMAL) INFLUENZA A/B ANTIGENS (11/30/2018 6:50 AM EST) Influ A Ag Detected(A) Not Detected 11/30/2018 7:[address] [facility] Influ B Ag Not Detected Not Detected 11/30/2018 7:[address] [facility] Swab SPECIMEN FROM NASOPHARYNGEAL STRUCTURE / Unknown 11/30/2018 6:50 AM EST 11/30/2018 6:[address] [facility] - 11/30/2018 7:09 AM EST Negative or Invalid results in patients with high clinical suspicion should be verified with RT-PCR, available as Respiratory Viral Mini Panel (KTF8388) in [facility]. The WHO recommends molecular testing (Respiratory Viral DNA Test) during periods of low influenza activity instead of rapid tests. ??Should rapid tests be used, then both positive and negative test results should be confirmed by a molecular method. ??The WHO also recommends confirmatory testing by a molecular method (Respiratory Viral DNA Test) for all negative rapid test results during seasonal occurrence of influenza. us Duong Steve DO MICROBIOLOGY - GENERAL ORDERABL ES Final Result [facility] [address] [place] [address] documented in this encounter Visit Diagnoses Diagnosis Acute URI- Primary Acute upper respiratory infections of unspecified site Acute suppurative otitis media of right ear without spontaneous rupture of tympanic membrane, recurrence not specified Influenza A Influenza with other respiratory manifestations documented in this encounter Administered Medications Inactive Administered Medications - up to 1 most recent administrations Medication Order MAR Action Action Date Dose Rate Site acetaminophen (TYLENOL) tablet 650 mg 650 mg, Oral, ONCE, 1 dose, On Wed11/30/18 at 0700, Maximum adult dose of acetaminophen is 4000 mg from all sources in 24 hours. Given 11/30/2018 6:59 AM EST 650 mg azithromycin (ZITHROMAX) tablet 500 mg 500 mg, Oral, ONCE, 1 dose, On Wed11/30/18 at 0700 Given 11/30/2018 6:59 AM EST 500 mg ondansetron (ZOFRAN-ODT) disintegrating tablet 4 mg 4 mg, Oral, ONCE, 1 dose, On Wed11/30/18 at 0700, Dissolve in mouth Given 11/30/2018 6:59 AM EST 4 mg documented in this encounter Discontinued Medications Medication Sig Discontinue Reason Start Date End Da te albuterol (PROVENTIL HFA;VENTOLIN HFA) 90 mcg/actuation Inhl HFA Aerosol Inhaler Inhale 2 Puffs into the lungs every 6 hours as needed for Wheezing. Removed During Admission Medication Review 11/30/2018 methocarbamol (ROBAXIN) 500 mg Oral Tablet Take 1 Tab by mouth 4 times daily as needed for Muscle spasms. Removed During Admission Medication Review 01/15/2016 11/30/2018 documented as of this encounter Active and Recently Administered Medications Times are shown in EST. Scheduled Medication Order 11/28/2018 11/29/2018 11/30/2018 acetaminophen (TYLENOL) tablet 650 mg (COMPLETED) 650 mg, Oral, ONCE, 1 dose, On Wed11/30/18 at 0700, Maximum adult dose of acetaminophen is 4000 mg from all sources in 24 hours. 0659 (Given - Provid er: Maty Sparks RN) azithromycin (ZITHROMAX) tablet 500 mg (COMPLETED) 500 mg, Oral, ONCE, 1 dose, On Wed11/30/18 at 0700 0659 (Given - Provid er: Maty Sparks RN) ondansetron (ZOFRAN-ODT) disintegrating tablet 4 mg (COMPLETED) 4 mg, Oral, ONCE, 1 dose, On Wed11/30/18 at 0700, Dissolve in mouth 0659 (Given - Provid er: Maty Sparks RN) documented in this encounter Additional Health Concerns Infection Onset Date Last Indicated Resolved Time INFLUENZA 11/30/2018 11/30/2018 03/30/2019 8:56 AM EDT documented as of this encounter
--- OUTSIDE RECORDS SUMMARY | 2024-08-21 07:48 | XMS_ITS | Encounter Summary ---
Author Organization [place] [address] Care Team Providers Care Water Vessel Captain Name Role Phone August England MD Primary Care Provider [phone] Reason for Visit * Reason Onset Date Comments Other 12/11/2019 Encounter Details Date Type Department Care Team (Late st Contact Info) Description 12/11/2019 Telephone [facility] [address] [place] [address] August England MD [address] [place] [address] Other Social History Tobacco Use Types Packs/Day Years [...] on file documented as of this encounter Ordered Prescriptions Prescription Sig Dispense Quantity Refills Last Filled Start Date End Date doxycycline (MONODOX) 100 mg Oral CapsuleIndications: Cough Take 1 Cap by mouth 2 times daily. 20 Cap 12/11/2019 05/20/2021 documented in this encounter Miscellaneous Notes * Telephone Encounter - Rosa M Brennan LPN - 12/11/2019 2:41 PM EDT Patient aware. * Telephone Encounter - August England MD - 12/11/2019 12:46 PM EDT Ok with me * Telephone Encounter - Jami Glover CMA - 12/11/2019 12:29 PM EDT Pt is now asking for a work note for today and tomorrow, to return on Wednesday. Please advise. * Telephone Encounter - Rosa M Brennan LPN - 12/11/2019 11:02 AM EDT LM * Telephone Encounter - August England MD - 12/11/2019 10:32 AM EDT Lets send in monodox 100 mg BID #20 If not quickly better, please come in * Telephone Encounter - Vicenta Miller MA - 12/11/2019 9:09 AM EDT He is still using the albuterol as needed, finished his antibiotic, zithromax. He is slightly better, but he is coughing up a lot of stuff. His throat hurts and has chest congestion. Can you send in another antibiotic? documented in this encounter Plan of Treatment Not on file documented as of this encounter Goals Goal Patient Goal Type Associated Problems Recent Progress Patient-Stated? Author Maintain a healthy diet, exercise regularly and maintain an ideal body weight General No Jami Glover CMA documented as of this encounter Visit Diagnoses Diagnosis Cough- Primary documented in this encounter Care Teams Water Vessel Captain Relationship Specialty Start Date End Date August England MD [address] [place] [id number] PCP - General Family Medicine 07/13/19 documented as of this encounter
--- OUTSIDE RECORDS SUMMARY | 2024-08-21 07:48 | XMS_ITS | Encounter Summary ---
Author Organization [place] [address] Care Team Providers Care Assistant Professor Of Economics Name Role Phone Unavailable Primary Care Provider Unavailabl e Reason for Visit * Reason Comments Abscess For three days on ta ilbone. Encounter Details Date Type Department Care Team (Late st Contact Info) Description 11/21/2011 9:26 PM EST - 11/21/2011 10:19 PM EST Emergency [facility] [place] [address] Jono Edge MD [address] [place] [address] [place] [address] Pilonidal cyst with abscess Discharge Disposition: Home or Self Care Social [...] Sign Reading Time Taken Comments Blood Pressure 156/72 11/21/2011 9:09 PM EST Pulse 110 11/21/2011 9:09 PM EST Temperature 37.6 ??C (99.7 ??F) 11/21/2011 9:09 PM ES T Respiratory Rate 22 11/21/2011 9:09 PM EST Oxygen Saturation 97% 11/21/2011 9:09 PM EST Inhaled Oxygen Concentration - - Weight 104.3 kg (230 lb) 11/21/2011 9:09 PM EST Height 182.9 cm (6') 11/21/2011 9:09 PM EST Body Mass Index 31.19 11/21/2011 9:09 PM EST documented in this encounter Discharge Instructions * Discharge Instructions* Jono Edge MD - 11/21/2011 9:52 PM EST Antibiotics as written. Followup with Dr. Roach. Return if worse. Change packing in 2 days. * Attachments The following attachments cannot be sent through Care Everywhere. * PILONIDAL CYST (AFGHAN) documented in this encounter Medications at Time of Discharge acetaminophen (TYLENOL) 325 mg tablet Take by mouth every 4 hours as needed for Pain. 10/31/2012 doxycycline (VIBRA-TABS) 100 mg tablet Take 1 Tab by mouth 2 times daily for 20 doses. 20 Tab 0 11/21/2011 12/01/2011 HYDROcodone-aceta minophen (VICODIN) 5-500 mg per tablet Take 1 Tab by mouth every 4 hours as needed for Pain for 20 doses. 20 Tab 0 11/21/2011 11/28/2011 sulfamethoxazole- trimethoprim (BACTRIM DS) 800-160 mg per tablet Take 2 Tabs by mouth 2 times daily for 10 days. 40 Tab 0 11/21/2011 12/01/2011 documented as of this encounter Ordered Prescriptions Prescription Sig Dispense Quantity Refills Last Filled Start Date End Date HYDROcodone-acetam inophen (VICODIN) 5-500 mg per tablet Take 1 Tab by mouth every 4 hours as needed for Pain for 20 doses. 20 Tab 0 11/21/2011 11/28/2011 doxycycline (VIBRA-TABS) 100 mg tablet Take 1 Tab by mouth 2 times daily for 20 doses. 20 Tab 0 11/21/2011 12/01/2011 sulfamethoxazole-t rimethoprim (BACTRIM DS) 800-160 mg per tablet Take 2 Tabs by mouth 2 times daily for 10 days. 40 Tab 0 11/21/2011 12/01/2011 documented in this encounter Discharge Disposition Disposition Code Departure Means Destination Home or Self Custodial documented in this encounter Progress Notes * Unknown, Unknown - 11/21/2011 10:04 PM EST * Unknown, Unknown - 11/21/2011 9:06 PM EST documented in this encounter ED Notes * Unknown, Unknown - 11/22/2011 12:00 AM EST * Kniga Vila RN - 11/21/2011 10:17 PM EST Pt ambulated to the lobby at discharge. Pt verbalize understanding of instructions at discharge. Family here for transportation to home. * Jono Edge MD - 11/21/2011 9:54 PM ESTAssociated Order(s): INCISION AND DRAINAGE Chief Complaint Patient presents with ??? Abscess For three days on tailbone. HPI Comments: 26-year-old white male presents to emergency department for evaluation of pilonidal cyst. Patient has prior history of the same. He has had this lanced twice. He describes painful swelling 3 days ago. No reported fever at home. Symptoms are dull and achy. Symptoms are of moderate severity and are constant. Symptoms are worse when he sits down. He denies associated cough shortness ofbreath headache or blurry vision. The history is provided by the patient and medical records. Allergies Allergen Reactions ??? Ceclor (Cefaclor) ??? Penicillins Home Medications: Prior to Admission medications Medication Sig Start Date End Date Taking? Authorizing Provider acetaminophen (TYLENOL) 325 mg tablet Take by mouth every 4 hours as needed for Pain. Yes Provider,Historical sulfamethoxazole-trimethoprim (BACTRIM DS) 800-160 mg per tablet Take 2 Tabs by mouth 2 times dailyfor 10 days. 11/21/11 12/01/11 Jono Edge MD doxycycline (VIBRA-TABS) 100 mg tablet Take 1 Tab by mouth 2 times daily for 20 doses. 11/21/11 12/01/11 Jono Edge MD HYDROcodone-acetaminophen (VICODIN) 5-500 mg per tablet Take 1 Tab by mouth every 4 hours as neededfor Pain for 20 doses. 11/21/11 11/28/11 Jono Edge MD Past Medical History: Past Medical History [...] Systems Constitutional: Negative for fever and chills. HENT: Negative. Eyes: Negative. Respiratory: Negative for cough and shortness of breath. Cardiovascular: Negative for chest pain, palpitations and leg swelling. Gastrointestinal: Negative for nausea, vomiting, abdominal pain and diarrhea. Genitourinary: Negative for dysuria and frequency. Musculoskeletal: Negative. Skin: Positive for wound. Negative for rash. Neurological: Negative. Psychiatric/Behavioral: Negative. All other systems reviewed and are negative. Blood pressure 156/72, pulse 110, temperature 99.7 ??F (37.6 ??C), temperature source Oral, resp. rate 22, height 6' (1.829 m), weight 230 lb (104.327 kg), SpO2 97.00%. Physical Exam Nursing note and vitals reviewed. Constitutional: He is oriented to person, place, and time. He appears well- developed and well-nourished. No distress. HENT: Head: Normocephalic and atraumatic. Nose: Nose normal. Mouth/Throat: Oropharynx is clear and moist. Eyes: Conjunctivae and EOM are normal. Pupils are equal, round, and reactive to light. Neck: Normal range of motion. Neck supple. Cardiovascular: Normal rate, regular rhythm and intact distal pulses. Pulmonary/Chest: Effort normal and breath sounds normal. No respiratory distress. Abdominal: Soft. Bowel sounds are normal. He exhibits no distension. No tenderness. Musculoskeletal: He exhibits no edema. Lymphadenopathy: He has no cervical adenopathy. Neurological: He is alert and oriented to person, place, and time. Skin: Skin is warm and dry. The area just to the right apex of the gluteal cleft has erythema induration and swelling. It is tender to palpation. The nodule measures approximately 1 cm in width and 2-1/2 cm in height. There areprior scars overlying this lesion from the prior I and D procedures. Psychiatric: He has a normal mood and affect. INCISION AND DRAINAGE Date/Time: 11/21/2011 9:56 PM Performed by: JONO EDGE Authorized by: JONO EDGE Consent: Verbal consent obtained. Consent given by: patient Patient understanding: patient states understanding of the procedure being performed Patient identity confirmed: verbally with patient Type: pilonidal cyst Body area: trunk Anesthesia: local infiltration Local anesthetic: lidocaine 1% with epinephrine Scalpel size: 11 Drainage: purulent Drainage amount: moderate Packing material: 1/4 in gauze Patient tolerance: Patient tolerated the procedure well with no immediate complications. Comments: The patient tolerated the procedure without complaint. He was started on antibiotics and referred to Gen. Surgery for recheck and packing exchange and potentially followup surgical management. Radiology/EKG/Labs: ED Course: Appropriate laboratory and radiology studies reviewed The patient was evaluated and underwent an I and D. Procedure. Patient tolerated the procedure without complaint. He was started on antibiotics and discharged. ED Clinical Impression: 1. Pilonidal cyst with abscess Critical Care time Condition at Discharge/Transfer from Department: Improved Jono Edge MD 11/21/11 [id number] * Kinga Vila RN - 11/21/2011 9:32 PM EST Pt ambulated to room with some difficulty. documented in this encounter Plan of Treatment Not on file documented as of this encounter Procedures Procedure Name Priority Date/Time Associated Diagnosis Comments INCISION AND DRAINAGE Routine 11/21/2011 9:58 PM EST documented in this encounter Results * INCISION AND DRAINAGE (11/21/2011 9:58 PM EST) Narrative [facility] - 11/21/2011 9:58 PM EST Jono Edge MD ? 11/21/2011 ??9:58 PM Chief Complaint Patient presents with ? ? Abscess ??For three days on tailbone. ?? HPI Comments: 26-year-old white male presents to emergency department for evaluation of pilonidal cyst. ??Patient has prior history of the same. ??He has had this lanced twice. ??He describes painful swelling 3 days ago. ??No reported fever at home. ?? Symptoms are dull and achy. ??Symptoms are of moderate severity and are constant. ??Symptoms are worse when he sits down. ??He denies associated cough shortness of breath headache or blurry vision. The history is provided by the patient and medical records. Allergies Allergen Reactions ? ? Ceclor (Cefaclor) ? Penicillins ?? Home Medications: Prior to Admission medications ?? Medication Sig Start Date End Date Taking? Authorizing Provider acetaminophen (TYLENOL) 325 mg tablet Take ??by mouth every 4 hours as needed for Pain. ?? Yes Provider, Historical sulfamethoxazole-trimethoprim (BACTRIM DS) 800-160 mg per tablet Take 2 Tabs by mouth 2 times daily for 10 days. 11/21/11 12/01/11 ?? Jono Edge MD doxycycline (VIBRA-TABS) 100 mg tablet Take 1 Tab by mouth 2 times daily for 20 doses. 11/21/11 12/01/11 ??Jono Edge MD HYDROcodone-acetaminophen (VICODIN) 5-500 mg per tablet Take 1 Tab by mouth every 4 hours as needed for Pain for 20 doses. 11/21/11 11/28/11 ??Jono Edge MD Past Medical History: Past Medical History Diagnosis Date ? ? Asthma ? Meningitis ? 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 ? PTSD (post-traumatic stress disorder) ? TBI (traumatic brain injury) ?? Social History: ??reports that he has never smoked. He has never used smokeless tobacco. ??He reports that he does not currently drink alcohol or use illicit drugs. Family History: History reviewed. No pertinent family history. Surgical History: History reviewed. No pertinent past surgical history. Review of Systems Constitutional: Negative for fever and chills. HENT: Negative. ?? Eyes: Negative. ?? Respiratory: Negative for cough and shortness of breath. ?? Cardiovascular: Negative for chest pain, palpitations and leg swelling. Gastrointestinal: Negative for nausea, vomiting, abdominal pain and diarrhea. Genitourinary: Negative for dysuria and frequency. Musculoskeletal: Negative. ?? Skin: Positive for wound. Negative for rash. Neurological: Negative. ?? Psychiatric/Behavioral: Negative. ?? All other systems reviewed and are negative. Blood pressure 156/72, pulse 110, temperature 99.7 ??F (37.6 ??C), temperature source Oral, resp. rate 22, height 6' (1.829 m), weight 230 lb (104.327 kg), SpO2 97.00%. Physical Exam Nursing note and vitals reviewed. Constitutional: He is oriented to person, place, and time. He appears well-developed and well-nourished. No distress. HENT: Head: Normocephalic and atraumatic. Nose: Nose normal. Mouth/Throat: Oropharynx is clear and moist. Eyes: Conjunctivae and EOM are normal. Pupils are equal, round, and reactive to light. Neck: Normal range of motion. Neck supple. Cardiovascular: Normal rate, regular rhythm and intact distal pulses. ?? Pulmonary/Chest: Effort normal and breath sounds normal. No respiratory distress. Abdominal: Soft. Bowel sounds are normal. He exhibits no distension. No tenderness. Musculoskeletal: He exhibits no edema. Lymphadenopathy: ??He has no cervical adenopathy. Neurological: He is alert and oriented to person, place, and time. Skin: Skin is warm and dry. ? The area just to the right apex of the gluteal cleft has erythema induration and swelling. ??It is tender to palpation. ?? The nodule measures approximately 1 cm in width and 2-1/2 cm in height. ??There are prior scars overlying this lesion from the prior I and D procedures. Psychiatric: He has a normal mood and affect. INCISION AND DRAINAGE Date/Time: 11/21/2011 9:56 PM Performed by: JONO EDGE Authorized by: JONO EDGE Consent: Verbal consent obtained. Consent given by: patient Patient understanding: patient states understanding of the procedure being performed Patient identity confirmed: verbally with patient Type: pilonidal cyst Body area: trunk Anesthesia: local infiltration Local anesthetic: lidocaine 1% with epinephrine Scalpel size: 11 Drainage: purulent Drainage amount: moderate Packing material: 1/4 in gauze Patient tolerance: Patient tolerated the procedure well with no immediate complications. Comments: The patient tolerated the procedure without complaint. ?? He was started on antibiotics and referred to Gen. Surgery for recheck and packing exchange and potentially followup surgical management. Radiology/EKG/Labs: ED Course: ?? Appropriate laboratory and radiology studies reviewed The patient was evaluated and underwent an I and D. Procedure. ?? Patient tolerated the procedure without complaint. ??He was started on antibiotics and discharged. ED Clinical Impression: ?? 1. Pilonidal cyst with abscess ?? Critical Care time Condition at Discharge/Transfer from Department: Improved Procedure Note Jono Edge MD - 11/21/2011 9:54 PM EST Chief Complaint Patient presents with ? ? Abscess For three days on tailbone. HPI Comments: 26-year-old white male presents to emergency department forevaluation of pilonidal cyst. Patient has prior history of the same. Hehas had this lanced twice. He describes painful swelling 3 days ago. Noreported fever at home. Symptoms are dull and achy. Symptoms are ofmoderate severity and are constant. Symptoms are worse when he sits down.He denies associated cough shortness of breath headache or blurryvision. The history is provided by the patient and medical records. Allergies Allergen Reactions ? ? Ceclor (Cefaclor) ? ? Penicillins Home Medications: Prior to Admission medications Medication Sig Start Date End Date Taking? Authorizing Provider acetaminophen (TYLENOL) 325 mg tablet Take by mouth every 4 hours asneeded for Pain. Yes Provider, Historical sulfamethoxazole-trimethoprim (BACTRIM DS) 800-160 mg per tablet Take 2Tabs by mouth 2 times daily for 10 days. 11/21/11 12/01/11 Jono Edge MD doxycycline (VIBRA-TABS) 100 mg tablet Take 1 Tab by mouth 2 times dailyfor 20 doses. 11/21/11 12/01/11 Jono Edge MD HYDROcodone-acetaminophen (VICODIN) 5-500 mg per tablet Take 1 Tab bymouth every 4 hours as needed for Pain for 20 doses. 11/21/11 11/28/11Jono Edge MD Past Medical History: Past Medical History Diagnosis Date ? ? Asthma ? ? Meningitis ? ? Seizures fibril seizuers ? ? PTSD (post-traumatic stress disorder) ? ? TBI (traumatic brain injury) Social History: reports that he has never smoked. He has never usedsmokeless tobacco. He reports that he does not currently drink alcohol oruse illicit drugs. Family History: History reviewed. No pertinent family history. Surgical History: History reviewed. No pertinent past surgical history. Review of Systems Constitutional: Negative for fever and chills. HENT: Negative. Eyes: Negative. Respiratory: Negative for cough and shortness of breath. Cardiovascular: Negative for chest pain, palpitations and leg swelling. Gastrointestinal: Negative for nausea, vomiting, abdominal pain anddiarrhea. Genitourinary: Negative for dysuria and frequency. Musculoskeletal: Negative. Skin: Positive for wound. Negative for rash. Neurological: Negative. Psychiatric/Behavioral: Negative. All other systems reviewed and are negative. Blood pressure 156/72, pulse 110, temperature 99.7 ??F (37.6 ??C),temperature source Oral, resp. rate 22, height 6' (1.829 m), weight 230 lb(104.327 kg), SpO2 97.00%. Physical Exam Nursing note and vitals reviewed. Constitutional: He is oriented to person, place, and time. He appearswell- developed and well-nourished. No distress. HENT: Head: Normocephalic and atraumatic. Nose: Nose normal. Mouth/Throat: Oropharynx is clear and moist. Eyes: Conjunctivae and EOM are normal. Pupils are equal, round, andreactive to light. Neck: Normal range of motion. Neck supple. Cardiovascular: Normal rate, regular rhythm and intact distal pulses. Pulmonary/Chest: Effort normal and breath sounds normal. No respiratorydistress. Abdominal: Soft. Bowel sounds are normal. He exhibits no distension. Notenderness. Musculoskeletal: He exhibits no edema. Lymphadenopathy: He has no cervical adenopathy. Neurological: He is alert and oriented to person, place, and time. Skin: Skin is warm and dry. The area just to the right apex of the gluteal cleft has erythemainduration and swelling. It is tender to palpation. The nodule measuresapproximately 1 cm in width and 2-1/2 cm in height. There are prior scarsoverlying this lesion from the prior I and D procedures. Psychiatric: He has a normal mood and affect. INCISION AND DRAINAGE Date/Time: 11/21/2011 9:56 PM Performed by: JONO EDGE Authorized by: JONO EDGE Consent: Verbal consent obtained. Consent given by: patient Patient understanding: patient states understanding of the procedure beingperformed Patient identity confirmed: verbally with patient Type: pilonidal cyst Body area: trunk Anesthesia: local infiltration Local anesthetic: lidocaine 1% with epinephrine Scalpel size: 11 Drainage: purulent Drainage amount: moderate Packing material: 1/4 in gauze Patient tolerance: Patient tolerated the procedure well with no immediatecomplications. Comments: The patient tolerated the procedure without complaint. He wasstarted on antibiotics and referred to Gen. Surgery for recheck andpacking exchange and potentially followup surgical management. Radiology/EKG/Labs: ED Course: Appropriate laboratory and radiology studies reviewed The patient was evaluated and underwent an I and D. Procedure. Patienttolerated the procedure without complaint. He was started on antibioticsand discharged. ED Clinical Impression: 1. Pilonidal cyst with abscess Critical Care time Condition at Discharge/Transfer from Department: Improved Jono Edge MD 11/21/11 6153 Jono Edge MD PROCEDURE/MINOR SURGICAL ORDERA BLES Final Result Performing Organization Address City/State/[facility] Co de Phone Number [place] [phone] documented in this encounter Visit Diagnoses Diagnosis Pilonidal cyst with abscess documented in this encounter Administered Medications Inactive Administered Medications - up to 1 most recent administrations Medication Order MAR Action Action Date Dose Rate Site doxycycline (VIBRA-TABS) tablet 100 mg 100 mg, Oral, ONCE, 1 dose, On 11/21/11 at 2200 Given 11/21/2011 10:18 PM EST 100 mg HYDROcodone-acetaminophen (NORCO) 5-325 mg per tablet 1 Tab 1 Tablet, Oral, ONCE, 1 dose, On 11/21/11 at 2200 Given 11/21/2011 10:18 PM EST 1 Tablet sulfamethoxazole-trimethoprim (BACTRIM DS) 800-160 mg per tablet 2 Tab 2 Tablet, Oral, ONCE, 1 dose, On 11/21/11 at 2200 Given 11/21/2011 10:19 PM EST 2 Tablets documented in this encounter Discontinued Medications Medication Sig Discontinue Reason Start Date End Da te azithromycin (ZITHROMAX) 250 mg tablet Take by mouth every 24 hours. DELETE-Therapy completed 11/21/2011 CIPROFLOXACIN HCL/DEXAMETH (CIPRODEX OTIC) Place in ear(s). DELETE-Therapy completed 11/21/2011 documented as of this encounter Active and Recently Administered Medications Times are shown in EST. Scheduled Medication Order 11/19/2011 11/20/2011 11/21/2011 doxycycline (VIBRA-TABS) tablet 100 mg (COMPLETED) 100 mg, Oral, ONCE, 1 dose, On 11/21/11 at 2200 2218 (Given - Provid er: Kinga Vila RN) HYDROcodone-acetaminophen (NORCO) 5-325 mg per tablet 1 Tab (COMPLETED) 1 Tablet, Oral, ONCE, 1 dose, On 11/21/11 at 2200 2218 (Given - Provid er: Kinga Vila RN) sulfamethoxazole-trimethoprim (BACTRIM DS) 800-160 mg per tablet 2 Tab (COMPLETED) 2 Tablet, Oral, ONCE, 1 dose, On 11/21/11 at 2200 2219 (Given - Provid er: Kinga Vila RN) documented in this encounter
--- OUTSIDE RECORDS SUMMARY | 2024-08-21 07:48 | XMS_ITS | Encounter Summary ---
Author Organization [place] [address] Care Team Providers Care Automation And Controls Supervisor Name Role Phone August England MD Primary Care Provider Reason for Visit * Reason Comments Medication Refill Encounter Details Date Type Department Care Team (Late st Contact Info) Description 12/05/2020 Refill [facility] [address] [facility] [address] August England MD [address] [place] [address] Medication Refill Social History Tobacco [...] LUNGS EVERY 4 HOURS NEEDED FOR WHEEZING 1 Inhaler 12/05/2020 documented in this encounter Plan of Treatment [...] mcg/actuation Inhl HFA Aerosol InhalerIndications:Histo ry of asthma Inhale 2 Puffs into the lungs every 4 hours as needed for Wheezing. 07/10/2020 12/05/2020 documented as of this encounter Care Teams Automation And Controls Supervisor Relationship Specialty Start Date End Date August England MD [address] [place] [address] PCP - General Family Medicine 07/13/19 documented as of this encounter
--- OUTSIDE RECORDS SUMMARY | 2024-08-21 07:48 | XMS_ITS | Encounter Summary ---
Author Organization [place] [address] Care Team Providers Care Early Morning Name Role Phone Unavailable Primary Care Provider Unavailabl e Encounter Details Date Type Department Care Team (Late st Contact Info) Description 02/01/2002 Hospital Encounter [facility] Generic, Historical Provider Social History Tobacco [...]
--- OUTSIDE RECORDS SUMMARY | 2024-08-21 07:48 | XMS_ITS | Encounter Summary ---
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 [address] August England MD [address] [place] [address] Annual physical exam (Primary Dx); White coat syndrome without hypertension Social History Tobacco Use Types Packs/Day Years [...] Sign Reading Time Taken Comments Blood Pressure 130/94 07/13/2019 7:57 AM EDT Pulse 80 07/13/2019 7:57 AM EDT Temperature 35.9 ??C (96.7 ??F) 07/13/2019 7:57 AM ED T Respiratory Rate - - Oxygen Saturation 97% 07/13/2019 7:57 AM EDT Inhaled Oxygen Concentration - - Weight 122.7 kg (270 lb 6.4 oz) 07/13/2019 7:57 AM EDT Height 176.5 cm (5' 9.5 ) 07/13/2019 7:57 AM EDT Body Mass Index 39.36 07/13/2019 7:57 AM EDT documented in this encounter Progress Notes * August England MD - 07/13/2019 8:00 AM EDT Vitals: 07/13/19 0757 BP: (!) 130/94 BP Location: Right arm Patient Position: Sitting Pulse: 80 Temp: 96.7 ??F (35.9 ??C) TempSrc: Forehead SpO2: 97% Weight: 270 lb 6.4 oz (122.7 kg) Height: 5' 9.5 (1.765 m) SUBJECTIVE: Chief Complaint Patient presents with ??? 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 Johnson is a 34 y.o. male here for an annual wellness visit. Diet: poor Exercise: none Activities of Daily Living: Functional Level: Self-care ADL Limitations: none Social Interaction Screen: Do you have concerns about issues that may impact social interaction such as developmental or behavioral/mental health conditions? no Health Maintenance Due Topic Date Due ??? Annual Wellness Exam 1987 ??? Influenza Vaccine (1) 05/28/2019 Health Maintenance Topic Date Due ??? Annual Wellness Exam 1987 ??? Influenza Vaccine (1) 05/28/2019 There is no immunization history on file for this patient. Patient Active Problem List Diagnosis ??? Meningitis ??? TBI (traumatic brain injury) (HCC) ??? PTSD (post-traumatic stress disorder) ??? Major depression Past Medical History: Diagnosis Date ??? Asthma ??? Meningitis ??? PTSD (post-traumatic stress disorder) ??? Seizures (HCC) fibril seizuers ??? TBI (traumatic brain injury) ([facility]) History reviewed. No pertinent surgical history. Allergies Allergen Reactions ??? Benadryl [Diphenhydramine Hcl] Itching ??? Ceclor [Cefaclor] ??? Penicillins No current outpatient medications on file prior to visit. No current facility-administered medications on file prior to visit. Social History Socioeconomic History ??? Marital status: Spouse name: None ??? Number of children: None ??? Years of education: None ??? Highest education level: None Tobacco Use ??? Smoking status: Never Smoker ??? Smokeless tobacco: Never Used Substance and Sexual Activity ??? Alcohol use: No Comment: occasional ??? Drug use: No Types: Marijuana Comment: denies current use (10/27) History reviewed. No pertinent family history. No exam data present No results found for this visit on 07/13/19. Patient Care Team: August England MD as PCP - General (Family Medicine) Lab Results Component Value Date WBC 18.7 (H) 03/30/2019 HGB 14.6 03/30/2019 HCT 42.7 03/30/2019 PLT 379 03/30/2019 ALT 23 03/30/2019 AST 22 03/30/2019 NA 137 03/30/2019 K 3.3 (L) 03/30/2019 CL 100 03/30/2019 CREATININE 1.02 03/30/2019 BUN 14 03/30/2019 CO2 19 (L) 03/30/2019 TSH 0.691 10/22/2014 GLUCOSE 110 05/28/2012 GLU 175 (H) 03/30/2019 === Other chronic disease management or a new acute condition was addressed today as a separate identifiable service today and the HPI of those conditions may be noted in the body of this note just below this statement with associated pertinent ROS/EXAM/A&P incorporated into the documentation within the appropriate sections of the note. Separate service billing not applicable if the patient is in for Initial Medicare wellness Assessment or as a new patient to the practice. Some commercial insurers may not allow wellness services and acute care/chronic care service billing on the same dateof service. === Additional issues addressed today: Elevated BP Hx white coat syndrome Review of Systems Constitutional: Negative for fatigue and unexpected weight change. Eyes: Negative for visual disturbance. Respiratory: Negative for cough and shortness of breath. Cardiovascular: Negative for chest pain, palpitations and leg swelling. Neurological: Negative for headaches. OBJECTIVE: Physical Exam Vitals signs and nursing note reviewed. Constitutional: General: He is not in acute distress. Appearance: He is well-developed. Eyes: General: No scleral icterus. Conjunctiva/sclera: Conjunctivae normal. Cardiovascular: Rate and Rhythm: Normal rate and regular rhythm. Heart sounds: Normal heart sounds. No murmur. Comments: No carotid bruits Pulses 2 + equal throughout Pulmonary: Effort: Pulmonary effort is normal. Breath sounds: Normal breath sounds. Abdominal: General: Bowel sounds are normal. There is no distension. Palpations: Abdomen is soft. There is no mass. Tenderness: There is no tenderness. There is no guarding or rebound. Neurological: Mental Status: He is alert and oriented to person, place, and time. Assessment Diagnoses and all orders for this visit: Annual physical exam White coat syndrome without hypertension work on D and E Wt loss To monitor BP closely, suspect white coat syndrome FBW today Declines flu, tdap Routine cancer screening at 50 yo Sign up for my chart documented in this encounter Miscellaneous Notes * Addendum Note - Suzanne Landry RMA - 07/13/2019 8:00 AM EDTAddended by: SUZANNE LANDRY on: 07/13/2019 08:28 AM Modules accepted: Orders documented in this encounter Plan of Treatment Not on file documented as of this encounter Goals Goal Patient Goal Type Associated Problems Recent Progress Patient-Stated? Author Maintain a healthy diet, exercise regularly and maintain an ideal body weight General No Jami Glover CMA documented as of this encounter Procedures Procedure Name Priority Date/Time Associated Diagnosis Comments LIPID PANEL REFLEX Routine 07/13/2019 8: 28 AM EDT Annual physical exam COMPREHENSIVE METABOLIC PANEL Routine 07/13/2019 8:28 AM EDT Annual physical exam documented in this encounter Results * (ABNORMAL) LIPID PANEL REFLEX (07/13/2019 8:28 AM EDT) Cholesterol 226(H) <=200 mg/dL 07/13/2019 2:15 PM EDT [facility] Comment: < 200 ?Desirable 200 - 239 ? Borderline High >= 240 ?High Triglyceride 263(H) <=150 mg/dL 07/13/2019 2:15 PM EDT [facility] Comment: < 150 ? Normal 150 - 199 ?Borderline High 200 - 499 ?High ??>= 500 ? Very High HDL 36(L) >=40 mg/dL 07/13/2019 2:15 PM EDT [facility] Comment: ??> 60 ?Optimal 40 - 60 ?Acceptable ?? < 40 ?Low LDL Calculated 137(H) <=100 mg/dL 07/13/2019 2:15 PM EDT [facility] Non-HDL-C Calculated 190(H) <=129 mg/dL 07/13/2019 2:15 PM EDT [facility] Comment: <130 ?Desirable 130-159 Above Desirable 160-189 Borderline High 190-219 High >= 220 ??Very High Fasting Specimen? Yes None 019 2:15 PM EDT [facility] Blood VENOUS BLOOD / Unknown Venipuncture / Unknown 07/13/2019 8:28 AM EDT 07/13/2019 8:28 AM EDT us August England MD CHEMISTRY ORDERABLES Final Re sult [facility] [address] [facility] [address] [place] [address] * COMPREHENSIVE METABOLIC PANEL (07/13/2019 8:28 AM EDT) Sodium 141 136 - 145 mmol/L 07/13/2019 2:15 PM EDT [facility] Potassium 4.3 3.5 - 5.0 mmol/L 07/13/2019 2:15 PM EDT [facility] Chloride 101 98 - 107 mmol/L 07/13/2019 2:15 PM EDT [facility] Total CO2 25 22 - 29 mmol/L 07/13/2019 2:15 PM EDT [facility] Anion Gap 15 7 - 16 mmol/L 07/13/2019 2:15 PM EDT [facility] Calcium 9.9 8.6 - 10.4 mg/dL 07/13/2019 2:15 PM EDT [facility] Glucose Lvl 88 74 - 100 mg/dL 07/13/2019 2:15 PM EDT [facility] BUN 20 6 - 20 mg/dL 07/13/2019 2:15 PM EDT [facility] Creatinine 1.14 0.67 - 1.30 mg/dL 07/13/2019 2:15 PM EDT [facility] Albumin 4.6 3.5 - 5.2 gm/dL 07/13/2019 2:15 PM EDT [facility] Total Protein 7.8 6.4 - 8.3 gm/dL 07/13/2019 2:15 PM EDT [facility] Bili Total 0.3 0.1 - 1.4 mg/dL 07/13/2019 2:15 PM EDT [facility] ALT 18 <=41 IU/L 07/13/2019 2:15 PM EDT [facility] AST 25 <=40 IU/L 07/13/2019 2:15 PM EDT [facility] Alk Phos 102 40 - 129 IU/L 07/13/2019 2:15 PM EDT [facility] GFR Afr Am 96 >=60 mL/min/1.7 3 m2 07/13/2019 2:15 PM EDT [facility] GFR Non Afr Am 83 >=60 mL/min/1.7 3 m2 07/13/2019 2:15 PM EDT [facility] Comment: This estimated GFR was calculated using CKD-EPI equation which is modified based on ethnicity for Non Americans and Americans. Both results are reported since it is not always possible to determine the patient's ethnicity. This equation should only be used for individuals 18 and older. It has not been validated for use with the elderly (>70 years), women, or in some racial or ethnic subgroups, such as Hispanics. The equation will be less accurate in people with differences in nutritional status or muscle mass. Blood VENOUS BLOOD / Unknown Venipuncture / Unknown 07/13/2019 8:28 AM EDT 07/13/2019 8:28 AM EDT us August England MD CHEMISTRY ORDERABLES Final Re sult [facility] [address] [facility], [place] [address] [facility] [address] [place] [address] documented in this encounter Visit Diagnoses Diagnosis Annual physical exam- Primary Routine general medical examination at a health care facility White coat syndrome without hypertension Elevated blood pressure reading without diagnosis of hypertension documented in this encounter Care Teams Blender / Cook Relationship Specialty Start Date End Date August England MD [address] [place] [address] PCP - General Family Medicine 07/13/19 documented as of this encounter
--- OUTSIDE RECORDS SUMMARY | 2024-08-21 07:48 | XMS_ITS | Encounter Summary ---
Author Organization [place] [address] Care Team Providers Care Office System Analyst Name Role Phone Unavailable Primary Care Provider Unavailabl e Encounter Details Date Type Department Care Team (Late st Contact Info) Description 02/23/2007 3:47 PM EDT - 02/23/2007 6:36 PM EDT Hospital Encounter [facility] Generic, Historical Provider Social History Tobacco Use Types Packs/Day Years Used Date Smoking Tobacco: Never Assessed Sex and Gender Information Value Date Recorded Sex Assigned at Not on file Legal Sex Male 6:04 PM EDT Gender Identity Not on file Sexual Orientation Not on file documented as of this encounter ED Notes * Unknown, Unknown - 01/31/2010 12:37 AM EDT documented in this encounter Plan of Treatment Not on file documented as of this encounter Visit Diagnoses Not on filedocumented in this encounter
--- OUTSIDE RECORDS SUMMARY | 2024-08-21 07:48 | XMS_ITS | Encounter Summary ---
Author Organization [place] [place] [address] Care Team Providers Care Crotch Breaker Name Role Phone Unavailable Primary Care Provider Unavailabl e Encounter Details Date Type Department Care Team (Late st Contact Info) Description 12/20/2008 1:22 AM EDT - 12/20/2008 4:44 AM EDT Hospital Encounter [facility] Lisa Madison MD [address] [place] [id number] Social History Tobacco Use Types Packs/Day Years Used Date Smoking Tobacco: Never Assessed Sex and Gender Information Value Date Recorded Sex Assigned at Not on file Legal Sex Male 6:04 PM EDT Gender Identity Not on file Sexual Orientation Not on file documented as of this encounter Plan of Treatment Scheduled Orders Name Type Priority Associated Diagnoses Orde r Schedule CT ABD/PELVIS M[employer]GAGE COLLECTOR Imaging Routine Once fo r 1 Occurrences starting 12/05/2009 until 12/05/2009, 1 completed documented as of this encounter Procedures Procedure Name Priority Date/Time Associated Diagnosis Comments CT ABD/PELVIS MORTGAGE COLLECTOR Routine 12/20/2008 3:1 0 AM EDT documented in this encounter Results * CT ABD/PELVIS MORTGAGE COLLECTOR (12/20/2008 3:10 AM EDT) Anatomical Region Laterality Modality Other 12/20/2008 3:10 AM EDT Narrative 12/20/2008 7:49 AM EDT rectal and IV contrast r/o perirecta CT abdomen and pelvis with IV and rectal contrast, 12/20/2008. History- 23-year-old male with localized pain and soft tissue induration posterior to the coccyx. Evaluate for perirectal abscess. Scans done at 5 mm intervals through abdomen and pelvis following IV (75 ml of Optiray 320) and rectal contrast administration. No priors. CT abdomen- Include lung bases are clear. Degree of solid organ/vascular enhancement is poor. Solid organs of upper abdomen are unremarkable. Small accessory splenule noted. No upper abdominal mass or adenopathy. CT pelvis- 1. There is streaky increased density in the subcutaneous soft tissues beginning posterior to the mid lumbar spine and tracking inferiorly, most prominent posterior to lower sacrum and coccyx. On images 92-97, there is an oval shaped area in the superficial soft tissues along the posteromedial margins of the right buttock, which has central low density and a peripheral rim. This is suspect for an abscess in the post coccygeal soft tissues. The rectum and perirectal soft tissues are unremarkable in appearance. There is no evidence of perirectal inflammatory change. A tube/catheter is present in the rectum. There is an enlarged lymph node in the left external iliac region (1.1 x 2.3 cm, image 75), likely inflammatory/reactive in origin. Additional external iliac nodes which are not enlarged by CT return are seen slightly further inferiorly bilaterally, and there are small inguinal nodes noted bilaterally. Impression- Oval shaped 2.5 x 4 cm area in the immediate post coccygeal soft tissues of the right buttock, suspect for a small abscess. There is adjacent inflammatory change. There is no evidence of perirectal inflammation, however. Mild adenopathy in the pelvis which is likely infectious/inflammatory in origin. Findings discussed with Dr. Madison in the ER at approximately 6-50 a.m. on 12/20/2008. It was learned that subsequent to this exam, Dr. Madison drained this superficial abscess of purulent, foul-smelling material. ? Inhalation Therapy Aides Teacher- ELBA MEJIA ? Reading Physician- CARMELA LUNA ? Released Date Time- 12/20/08 0819 Procedure Note Carmela Luna Lucero - 12/05/2009 rectal and IV contrast r/o perirecta CT abdomen and pelvis with IV and rectal contrast, 12/20/2008. History- 23-year-old male with localized pain and soft tissue induration posterior to the coccyx. Evaluate for perirectal abscess. Scans done at 5 mm intervals through abdomen and pelvis following IV (75 ml of Optiray 320) and rectal contrast administration. No priors. CT abdomen- Include lung bases are clear. Degree of solid organ/vascular enhancement is poor. Solid organs of upper abdomen are unremarkable. Small accessory splenule noted. No upper abdominal mass or adenopathy. CT pelvis- 1. There is streaky increased density in the subcutaneous soft tissues beginning posterior to the mid lumbar spine and tracking inferiorly, most prominent posterior to lower sacrum and coccyx. On images 92-97, there is an oval shaped area in the superficial soft tissues along the posteromedial margins of the right buttock, which has central low density and a peripheral rim. This is suspect for an abscess in the post coccygeal soft tissues. The rectum and perirectal soft tissues are unremarkable in appearance. There is no evidence of perirectal inflammatory change. A tube/catheter is present in the rectum. There is an enlarged lymph node in the left external iliac region (1.1 x 2.3 cm, image 75), likely inflammatory/reactive in origin. Additional external iliac nodes which are not enlarged by CT return are seen slightly further inferiorly bilaterally, and there are small inguinal nodes noted bilaterally. Impression- Oval shaped 2.5 x 4 cm area in the immediate post coccygeal soft tissues of the right buttock, suspect for a small abscess. There is adjacent inflammatory change. There is no evidence of perirectal inflammation, however. Mild adenopathy in the pelvis which is likely infectious/inflammatory in origin. Findings discussed with Dr. Madison in the ER at approximately 6-50 a.m. on 12/20/2008. It was learned that subsequent to this exam, Dr. Madison drained this superficial abscess of purulent, foul-smelling material. Inhalation Therapy Aides Teacher- ELBA Villatoro Physician- CARMELA LUNA MD Released Date Time- 12/20/08 0819 us Lisa Madison MD [facility] nal Result documented in this encounter Visit Diagnoses Not on filedocumented in this encounter
--- OUTSIDE RECORDS SUMMARY | 2024-08-21 07:48 | XMS_ITS | Encounter Summary ---
Author Organization [place] [address] Care Team Providers Care Hem Inspector Name Role Phone Unavailable Primary Care Provider Unavailabl e Encounter Details Date Type Department Care Team (Late st Contact Info) Description 03/17/2002 12:31 PM EDT - 03/17/2002 3:35 PM EDT Hospital Encounter [facility] [...]
--- OUTSIDE RECORDS SUMMARY | 2024-08-21 07:48 | XMS_ITS | Encounter Summary ---
Author Organization [facility] [place] [address] Care Team Providers Care Controls Designer Name Role Phone Unavailable Primary Care Provider Unavailabl e Reason for Visit * Reason Comments Abdominal Pain Abd pain x 20 minute s ago. Patient appears to be in significant of pain. States he thinks it is from hot sauce that he ate Encounter Details Date Type Department Care Team (Late st Contact Info) Description 03/30/2019 3:47 AM EDT - 03/30/2019 5:27 AM EDT Emergency [place] [facility] [place] [address] José Miguel Combs MD [address] [place] [id number] Acute gastritis, presence of bleeding unspecified, unspecified gastritis type (Primary Dx) Discharge Disposition: Home or Self [...] Sign Reading Time Taken Comments Blood Pressure 150/100 03/30/2019 4:36 AM EDT Pulse 75 03/30/2019 5:13 AM EDT Temperature 36.4 ??C (97.6 ??F) 03/30/2019 3:49 AM ED T Respiratory Rate 23 03/30/2019 5:13 AM EDT Oxygen Saturation 98% 03/30/2019 5:13 AM EDT Inhaled Oxygen Concentration - - Weight 121.6 kg (268 lb) 03/30/2019 3:49 AM EDT Height 177.8 cm (5' 10 ) 03/30/2019 3:49 AM EDT Body Mass Index 38.45 03/30/2019 3:49 AM EDT documented in this encounter Discharge Instructions * Discharge Instructions* Dereck Ojeda PA - 03/30/2019 5:18 AM EDT Take medication as prescribed. To take [id number] antacids such as Tums or Mylanta as well. Clear liquids and bland diet with advancement as tolerated. Return to ED as needed. documented in this encounter Medications at Time of Discharge omeprazole (PRILOSEC) 20 mg Oral Capsule, Delayed Release(E.C.) Take 1 Cap by mouth 2 times daily (before meals) for 14 days. 28 Cap 03/30/2019 04/13/2019 documented as of this encounter Ordered Prescriptions Prescription Sig Dispense Quantity Refills Last Filled Start Date End Date omeprazole (PRILOSEC) 20 mg Oral Capsule, Delayed Release(E.C.) Take 1 Cap by mouth 2 times daily (before meals) for 14 days. 28 Cap 03/30/2019 04/13/2019 documented in this encounter Discharge Disposition Disposition Code Departure Means Destination Home or Self Snf documented in this encounter ED Notes * Nguyen Martinez RN - 03/30/2019 3:47 AM EDT Bed: Z02 Expected date: Expected time: Means of arrival: Comments: * Dereck Ojeda PA - 03/30/2019 3:43 AM EDT Chief Complaint Patient presents with ??? Abdominal Pain Abd pain x 20 minutes ago. Patient appears to be in significant of pain. States he thinks it is from hot sauce that he ate Pt is seen for Dr. Combs. This is a 34-year-old male patient who presents with epigastric abdominal pain that began about 20-30 minutes ago. Patient has past medical history significant for obesity, and asthma. He denies any previous cardiac or abdominal history. Patient states today he was feeling well. He ate some type of tuna a couple hours ago. He states this is not unusual for him. He felt fine after eating. He continued working. About 20 minutes ago he began with a sudden onset, sharp pain to the epigastrium. He states it quickly worsened and became severe. He describes it as a sharp, constant pain without radiation. He denies a substernal radiationradiation through to the back. He has had nausea but no vomiting. He states he has been dry heaving. He states the pain as constant become somewhat flushed and diaphoretic. He denies having any similar symptoms previously. Patient denies any urine symptoms. He had a bowel movement prior to going into work today and reports this to be normal. He has had no known fever. He maintains gallbladder. He has no known history of pancreatitis and does not have any significant alcohol use history. At no point has he had any chest pain. He denies shortness of breath or pleuritic pain. He states the pain is definitively over the epigastrium and denies any chest pain. History provided by: Patient college associate used: No Abdominal Pain The primary symptoms of the illness include abdominal pain and nausea. The primary symptoms of the illness do not include fever, shortness of breath, vomiting, diarrhea or dysuria. Patient History Allergies Allergen Reactions ??? Benadryl [Diphenhydramine Hcl] Itching ??? Ceclor [Cefaclor] ??? Penicillins Home Medications: Prior to Admission medications Not on File Past Medical History: Past Medical History: Diagnosis Date ??? Asthma ??? Meningitis ??? PTSD (post-traumatic stress disorder) ??? 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 TBI (traumatic brain injury) ([facility]) Social History: reports that he has never smoked. He has never used smokeless tobacco. He reports that he does not drink alcohol or use drugs. Family History: No family history on file. Surgical History: History reviewed. No pertinent surgical history. Review of Systems Review of Systems Constitutional: Negative for fever. Eyes: Negative for visual disturbance. Respiratory: Negative for chest tightness and shortness of breath. Cardiovascular: Negative for chest pain. Gastrointestinal: Positive for abdominal pain and nausea. Negative for diarrhea and vomiting. Genitourinary: Negative for dysuria. Musculoskeletal: Negative for myalgias, neck pain and neck stiffness. Skin: Negative for rash. Neurological: Negative for headaches. Physical Exam Blood pressure (!) 167/98, pulse 88, temperature 97.6 ??F (36.4 ??C), temperature source Oral, resp. rate 28, height 5' 10 (1.778 m), weight 268 lb (121.6 kg), SpO2 99 %. Physical Exam Constitutional: He is oriented to person, place, and time. He appears well- developed and well-nourished. No distress. Pt appears in moderate discomfort. He is holding his hands over the epigastrum. HENT: Head: Atraumatic. Nose: Nose normal. Eyes: Pupils are equal, round, and reactive to light. EOM are normal. Neck: Normal range of motion. Neck supple. No JVD present. Cardiovascular: Normal rate, regular rhythm and normal heart sounds. Pulmonary/Chest: Normal respiratory effort. Patient speaking in full sentences. Lungs are clear to auscultation bilaterally. Abdominal: Abdomen is soft, nondistended. There is mild tenderness over the epigastrium. No right upper quadrant tenderness. Negative Bhatt sign. No CVA tenderness. Musculoskeletal: He exhibits no edema. Neurological: He is alert and oriented to person, place, and time. Skin: Skin is warm and dry. No rash noted. Psychiatric: He has a normal mood and affect. His behavior is normal. Nursing note and vitals reviewed. Procedures Radiology/EKG/Labs: Results for orders placed or performed during the hospital encounter of 03/30/19 CT ABD PEL ED FAST W CONTRAST Narrative CT ABDOMEN AND PELVIS WITH CONTRAST (FAST), 03/30/2019 4:43 AM CLINICAL HISTORY: -Upper abdominal pain COMPARISON: December 20, 2008 PROCEDURE COMMENTS: Multi-detector volumetric scanning of the abdomen and pelvis with multiplanar reformatting per expedited protocol. 100 mL Isovue 370 IV. Automated exposure control for dose reduction was used. CTDIvol: 15.4 mGy. DLP: 800 mGy-cm. FINDINGS: LOWER THORAX: Lung bases unremarkable. ABDOMEN AND PELVIS: Liver, spleen, pancreas, and adrenal glands are unremarkable. Kidneys enhance and are nonhydronephrotic. No bowel obstruction or inflammatory process. Unremarkable biliary system. No free fluid or adenopathy in the pelvis. No evidence of appendicitis. No acute spine fracture or malalignment. Impression No acute abnormality of the abdomen or pelvis. - - CBC WITH DIFF Result Value Ref Range WBC 18.7 (H) 4.0 - 11.0 x10(3)/mcL RBC 4.80 4.30 - 5.81 x10(6)/mcL Hgb 14.6 13.5 - 17.1 g/dL Hct 42.7 38.9 - 51.6 % MCV 88.9 82.5 - 99.8 fL MCH 30.4 27.0 - 34.3 pg MCHC 34.2 32.1 - 35.3 g/dL RDW 13.0 11.5 - 15.0 % Platelet 379 144 - 423 x10(3)/mcL MPV 7.0 6.8 - 10.8 fL Neut Percent 72.5 % Lymph Percent 18.2 % [place] Percent 8.0 % Eos Percent 0.9 % Baso Percent 0.4 % Neut # 13.6 (H) 1.8 - 7.7 x10(3)/mcL Lymph # 3.4 0.6 - 4.8 x10(3)/mcL [place] # 1.5 (H) 0.0 - 1.3 x10(3)/mcL Eos# 0.2 0.0 - 0.5 x10(3)/mcL Baso # 0.1 0.0 - 0.2 x10(3)/mcL BASIC METABOLIC PANEL Result Value Ref Range Sodium 137 136 - 145 mmol/L Potassium 3.3 (L) 3.5 - 5.0 mmol/L Chloride 100 98 - 107 mmol/L Total CO2 19 (L) 22 - 29 mmol/L Anion Gap 18 (H) 7 - 16 mmol/L Calcium 8.8 8.6 - 10.4 mg/dL Glucose Lvl 175 (H) 74 - 100 mg/dL BUN 14 6 - 20 mg/dL Creatinine 1.02 0.67 - 1.30 mg/dL GFR Afr Am 110 >=60 mL/min/1.73 m2 GFR Non Afr Am 95 >=60 mL/min/1.73 m2 HEPATIC FUNCTION PANEL Result Value Ref Range Total Protein 7.6 6.4 - 8.3 gm/dL Albumin 4.2 3.5 - 5.2 gm/dL Bili Direct <0.2 0.0 - 0.3 mg/dL Bili Total 0.4 0.1 - 1.4 mg/dL AST 22 <=40 IU/L ALT 23 <=41 IU/L Alk Phos 94 40 - 129 IU/L LIPASE LEVEL Result Value Ref Range Lipase Lvl 20 13 - 60 IU/L EXTRA TUBES PANEL Narrative The following orders were created for panel order EXTRA TUBES PANEL. Procedure Abnormality Status --------- ------ EXTRA LIGHT BLUE[[id number]] Final result Please view results for these tests on the individual orders. ED Course: Appropriate laboratory and radiology studies reviewed This was a 34-year-old male patient who presented with epigastric abdominal pain that began about 20-30 minutes prior to arrival. It has increased since onset and patient rates pain 8-9/10 in severity and presentation. He does appear in some discomfort but does not appear toxic or in significant distress. Exam reveals tenderness over the epigastrium but otherwise benign abdomen. He has no previous cardiac history and denies any chest pain. He is obese but no other identifiablecardiac risk factors. Labs and cardiac workup were obtained. Patient is given GI cocktail and IV protonix. On reevaluation patient states he is feeling much better. Pain has decreased by at least 50% and hereports pain is down to a 3-4. He reports the GI cocktail significantly improved symptoms. Labs do show leukocytosis of 18.7. This could just be reactionary but given the presence of abdominal pain, a CT was added. This is negative. A slight anion gap of 18 is noted but remainder of labs are unremarkable. I suspect gastritis. Patient is prescribed omeprazole. He is also advised [id number] antacidsand to maintain a clear liquids, bland diet with advancement as tolerated. He will return if worse.Follow-up with primary care. Discharged home. ED Clinical Impression: Acute gastritis, presence of bleeding unspecified, unspecified gastritis type (primary encounter diagnosis) Critical Care time Condition at Discharge/Transfer from Department: Stable This chart was completed using voice recognition technology and may contain unintended errors Dereck Ojeda PA 03/30/19 0521 Cosigned by José Miguel Combs MD at 03/30/2019 6:07 AM EDT Associated attestation - José Miguel Combs MD - 03/30/2019 6:07 AM EDT I agree with the assessment provided by the midlevel provider. I have discussed this patient with them, or was available for consultation during my shift. This chart was completed using voice recognition technology and may contain unintended errors documented in this encounter Plan of Treatment Not on file documented as of this encounter Procedures Procedure Name Priority Date/Time Associated Diagnosis Comments CT ABD PEL ED FAST W CONTRAST STAT 03/30/2019 4:43 AM EDT EXTRA TUBES PANEL Routine 03/30/2019 3:5 4 AM EDT EXTRA LIGHT BLUE Routine 03/30/2019 3:54 AM EDT CBC WITH DIFF STAT 03/30/2019 3:54 AM EDT LIPASE LEVEL STAT 03/30/2019 3:54 AM EDT HEPATIC FUNCTION PANEL STAT 03/30/2019 3:54 AM EDT BASIC METABOLIC PANEL STAT 03/30/2019 3:54 AM EDT documented in this encounter Results * CT ABD PEL ED FAST W CONTRAST (03/30/2019 4:43 AM EDT) Anatomical Region Laterality Modality Abdomen, Pelvis Computed Tomogra phy 03/30/2019 4:43 AM EDT Impressions 03/30/2019 5:12 AM EDT No acute abnormality of the abdomen or pelvis. - - Narrative 03/30/2019 5:[address] ABDOMEN AND PELVIS WITH CONTRAST (FAST), 03/30/2019 4:43 AM CLINICAL HISTORY: ??-Upper abdominal pain COMPARISON: ??December 20, 2008 PROCEDURE COMMENTS: ??Multi-detector volumetric scanning of the abdomen and pelvis with multiplanar reformatting per expedited protocol. ??100 mL Isovue 370 IV. Automated exposure control for dose reduction was used. CTDIvol: 15.4 mGy. DLP: 800 mGy-cm. FINDINGS: ?? LOWER THORAX: ??Lung bases unremarkable. ABDOMEN AND PELVIS: ?? Liver, spleen, pancreas, and adrenal glands are unremarkable. Kidneys enhance and are nonhydronephrotic. No bowel obstruction or inflammatory process. Unremarkable biliary system. No free fluid or adenopathy in the pelvis. ??No evidence of appendicitis. ??No acute spine fracture or malalignment. Procedure Note Vini Herrera MD - 03/30/2019 CT ABDOMEN AND PELVIS WITH CONTRAST (FAST), 03/30/2019 4:43 AM CLINICAL HISTORY: -Upper abdominal pain COMPARISON: December 20, 2008 PROCEDURE COMMENTS: Multi-detector volumetric scanning of the abdomenand pelvis with multiplanar reformatting per expedited protocol. 100 mLIsovue 370 IV. Automated exposure control for dose reduction was used. CTDIvol: 15.4mGy. DLP: 800 mGy-cm. FINDINGS: LOWER THORAX: Lung bases unremarkable. ABDOMEN AND PELVIS: Liver, spleen, pancreas, and adrenal glands are unremarkable. Kidneysenhance and are nonhydronephrotic. No bowel obstruction or inflammatory process. Unremarkable biliary system. No free fluid or adenopathy in the pelvis. No evidence of appendicitis.No acute spine fracture or malalignment. IMPRESSION: No acute abnormality of the abdomen or pelvis. - - José Miguel Combs MD IMG CT ORDERABLES Final Resu lt * EXTRA LIGHT BLUE (03/30/2019 3:54 AM EDT) Blood VENOUS BLOOD / Unknown Venipuncture / Unknown 03/30/2019 3:54 AM EDT 03/30/2019 3:58 AM EDT José Miguel Combs MD HEMATOLOGY ORDERABLES Final Result [facility] [address] [place] [address] * LIPASE LEVEL (03/30/2019 3:54 AM EDT) Lipase Lvl 20 13 - 60 IU/L 03/30/2019 4:17 AM EDT [facility] Blood VENOUS BLOOD / Unknown Venipuncture / Unknown 03/30/2019 3:54 AM EDT 03/30/2019 4:05 AM EDT us José Miguel Combs MD CHEMISTRY ORDERABLES Final R esult Performing Organization Address [facility] de Phone Number [facility] [address] [place] [address] * HEPATIC FUNCTION PANEL (03/30/2019 3:54 AM EDT) [facility] Total Protein 7.6 6.4 - 8.3 gm/dL 03/30/2019 4:17 AM EDT [facility] Albumin 4.2 3.5 - 5.2 gm/dL 03/30/2019 4:17 AM EDT [facility] Bili Direct <0.2 0.0 - 0.3 mg/dL 03/30/2019 4:17 AM EDT [facility] Bili Total 0.4 0.1 - 1.4 mg/dL 03/30/2019 4:17 AM EDT [facility] AST 22 <=40 IU/L 03/30/2019 4:17 AM EDT [facility] ALT 23 <=41 IU/L 03/30/2019 4:17 AM EDT [facility] Alk Phos 94 40 - 129 IU/L 03/30/2019 4:17 AM EDT [facility] Blood VENOUS BLOOD / Unknown Venipuncture / Unknown 03/30/2019 3:54 AM EDT 03/30/2019 4:05 AM EDT us José Miguel Combs MD CHEMISTRY ORDERABLES Final R esult [facility] [address] [place] [id number] * (ABNORMAL) BASIC METABOLIC PANEL (03/30/2019 3:54 AM EDT) Sodium 137 136 - 145 mmol/L 03/30/2019 4:24 AM EDT [facility] Potassium 3.3(L) 3.5 - 5.0 mmol/L 03/30/2019 4:24 AM EDT [facility] Chloride 100 98 - 107 mmol/L 03/30/2019 4:24 AM EDT [facility] Total CO2 19(L) 22 - 29 mmol/L 03/30/2019 4:24 AM EDT [facility] Anion Gap 18(H) 7 - 16 mmol/L 03/30/2019 4:24 AM EDT [facility] Calcium 8.8 8.6 - 10.4 mg/dL 03/30/2019 4:24 AM EDT [facility] Glucose Lvl 175(H) 74 - 100 mg/dL 03/30/2019 4:24 AM EDT [facility] BUN 14 6 - 20 mg/dL 03/30/2019 4:24 AM EDT [facility] Creatinine 1.02 0.67 - 1.30 mg/dL 03/30/2019 4:24 AM EDT [facility] GFR Afr Am 110 >=60 mL/min/1.7 3 m2 03/30/2019 4:24 AM EDT [facility] GFR Non Afr Am 95 >=60 mL/min/1.7 3 m2 03/30/2019 4:24 AM EDT [facility] Comment: This estimated GFR was [...] VENOUS BLOOD / Unknown Venipuncture / Unknown 03/30/2019 3:54 AM EDT 03/30/2019 4:05 AM EDT us José Miguel Combs MD CHEMISTRY ORDERABLES Final R esult [facility] [address], [place] [id number] * (ABNORMAL) CBC WITH DIFF (03/30/2019 3:54 AM EDT) WBC 18.7(H) 4.0 - 11.0 x10(3)/mcL 03/30/2019 4:05 AM EDT [facility] RBC 4.80 4.30 - 5.81 x10(6)/mcL 03/30/2019 4:05 AM EDT [facility] Hgb 14.6 13.5 - 17.1 g/dL 03/30/2019 4:05 AM EDT [facility] Hct 42.7 38.9 - 51.6 % 03/30/2019 4:05 AM EDT [facility] MCV 88.9 82.5 - 99.8 fL 03/30/2019 4:05 AM EDT [facility] MCH 30.4 27.0 - 34.3 pg 03/30/2019 4:05 AM EDT [facility] MCHC 34.2 32.1 - 35.3 g/dL 03/30/2019 4:05 AM EDT [facility] RDW 13.0 11.5 - 15.0 % 03/30/2019 4:05 AM EDT [facility] Platelet 379 144 - 423 x10(3)/mcL 03/30/2019 4:05 AM EDT [facility] MPV 7.0 6.8 - 10.8 fL 03/30/2019 4:05 AM EDT [facility] Neut Percent 72.5 % 03/30/2019 4:05 AM EDT [facility] Lymph Percent 18.2 % 03/30/2019 4:05 AM EDT [facility] [place] Percent 8.0 % 03/30/2019 4:05 AM EDT [facility] Eos Percent 0.9 % 03/30/2019 4:05 AM EDT [facility] Baso Percent 0.4 % 03/30/2019 4:05 AM EDT [facility] Neut # 13.6(H) 1.8 - 7.7 x10(3)/[facility] 03/30/2019 4:05 AM EDT [facility] Lymph # 3.4 0.6 - 4.8 x10(3)/[facility] 03/30/2019 4:05 AM EDT [facility] [place] # 1.5(H) 0.0 - 1.3 x10(3)/[facility] 03/30/2019 4:05 AM EDT [facility] Eos# 0.2 0.0 - 0.5 x10(3)/[facility] 03/30/2019 4:05 AM EDT [facility] Baso # 0.1 0.0 - 0.2 x10(3)/[facility] 03/30/2019 4:05 AM EDT [facility] Blood VENOUS BLOOD / Unknown Venipuncture / Unknown 03/30/2019 3:54 AM EDT 03/30/2019 3:58 AM EDT us José Miguel Combs MD HEMATOLOGY ORDERABLES Final Result Performing Organization Address City/State/[facility] Co de Phone Number [facility] [address] [phone] documented in this encounter Visit Diagnoses Diagnosis Acute gastritis, presence of bleeding unspecified, unspecified gastritis type- Primary documented in this encounter Administered Medications Inactive Administered Medications - up to 1 most recent administrations Medication Order MAR Action Action Date Dose Rate Site gi cocktail suspension 30 mL 30 mL, Oral, ONCE, 1 dose, On Wed03/30/19 at 0400 Given 03/30/2019 4:00 AM EDT 30 mL iopamidol (ISOVUE-370) 76 % injection (LOW) 100 mL 100 mL, Intravenous, ONCE PRN, 1 dose, Starting on Wed03/30/19 at 0430, Until Wed03/30/19 at 0443, Radiology Procedure, [facility]ESICANT , CT (Contrasts) Given 03/30/2019 4:43 AM EDT 100 mL ondansetron (ZOFRAN) injection 4 mg 4 mg, Intravenous, ONCE, 1 dose, On Kate 03/30/19 at 0400 Given 03/30/2019 4:00 AM EDT 4 mg pantoprazole (PROTONIX) 40 mg in sodium chloride 10 mL injection 40 mg, Intravenous, ONCE, 1 dose, On Kate 03/30/19 at 0400, Reconstitute the appropriate number of 40 mg vials with 10 mL of 0.9% sodium chloride injection for EACH VIAL to a final concentration of approximately 4 mg/mL; administer total volume IV over a period of at least 2 minutes Given 03/30/2019 4:00 AM EDT 40 mg sodium chloride 0.9% syringe Intravenous, ONCE PRN, 1 dose, Starting on Kate 03/30/19 at 0430, Until Kate 03/30/19 at 0443, Line Care, Flush every shift or after IV medication, CT (Contrasts) Given 03/30/2019 4:43 AM EDT 10 mL documented in this encounter Active and Recently Administered Medications Times are shown in EDT. Scheduled Medication Order 03/28/2019 03/29/2019 03/30/2019 gi cocktail suspension 30 mL (COMPLETED) 30 mL, Oral, ONCE, 1 dose, On Kate 03/30/19 at 0400 0400 (Given - Provid er: Annalise Springer RN) ondansetron (ZOFRAN) injection 4 mg (COMPLETED) 4 mg, Intravenous, ONCE, 1 dose, On Kate 03/30/19 at 0400 0400 (Given - Provid er: Annalise Springer RN) pantoprazole (PROTONIX) 40 mg in sodium chloride 10 mL injection (COMPLETED) 40 mg, Intravenous, ONCE, 1 dose, On Kate 03/30/19 at 0400, Reconstitute the appropriate number of 40 mg vials with 10 mL of 0.9% sodium chloride injection for EACH VIAL to a final concentration of approximately 4 mg/mL; administer total volume IV over a period of at least 2 minutes 0400 (Given - Provid er: Annalise Springer RN) PRN Medication Order 03/28/2019 03/29/2019 03/30/2019 iopamidol (ISOVUE-370) 76 % injection (LOW) 100 mL (COMPLETED) 100 mL, Intravenous, ONCE PRN, 1 dose, Starting on Kate 03/30/19 at 0430, Until Kate 03/30/19 at 0443, Radiology Procedure, [facility] , CT (Contrasts) 0443 (Given - Provid er: Alysa Carbajal, RT) sodium chloride 0.9% syringe (COMPLETED) Intravenous, ONCE PRN, 1 dose, Starting on Kate 03/30/19 at 0430, Until Kate 03/30/19 at 0443, Line Care, Flush every shift or after IV medication, CT (Contrasts) 0443 (Given - Provid er: Alysa Carbajal, RT) documented in this encounter Additional Health Concerns Infection Onset Date Last Indicated Resolved Time INFLUENZA 11/30/2018 11/30/2018 03/30/2019 8:56 AM EDT documented as of this encounter
--- OUTSIDE RECORDS SUMMARY | 2024-08-21 07:48 | XMS_ITS | Encounter Summary ---
Author Organization [place] [address] Care Team Providers Care Social Worker Name Role Phone August England MD Primary Care Provider [phone] Reason for Visit * Reason Comments Congestion Cough Encounter Details Date Type Department Care Team (Latest Contact Info) Description 12/06/2019 8:15 AM EDT Office Visit [facility] [address] [address] August England MD [address] [place] [address] Cough (Primary Dx); Acute bacterial sinusitis Social History Tobacco Use Types Packs/Day Years [...] Sign Reading Time Taken Comments Blood Pressure 132/80 12/06/2019 8:38 AM EDT Pulse 102 12/06/2019 8:38 AM EDT Temperature 36.3 ??C (97.4 ??F) 12/06/2019 8:38 AM ED T Respiratory Rate - - Oxygen Saturation 97% 12/06/2019 8:38 AM EDT Inhaled Oxygen Concentration - - Weight 122.4 kg (269 lb 12.8 oz) 12/06/2019 8:38 AM EDT Height - - Body Mass Index 39.27 07/13/2019 7:57 AM EDT documented in this encounter Ordered Prescriptions Prescription Sig Dispense Quantity Refills Last Filled Start Date End Date benzonatate (TESSALON) 200 mg Oral CapsuleIndications :Cough Take 1 Cap by mouth 3 times daily as needed for Cough for up to 10 days. 30 Cap 12/06/2019 12/16/2019 azithromycin (ZITHROMAX Z-LYNNE) 250 mg Oral TabletIndications: Acute bacterial sinusitis 2 tabs by mouth daily for 3 days 6 Tab 12/06/2019 05/20/2021 documented in this encounter Progress Notes * Auguts England MD - 12/06/2019 8:15 AM EDT Vitals: 12/06/19 0838 BP: 132/80 BP Location: Left arm Patient Position: Sitting Pulse: 102 Temp: 97.4 ??F (36.3 ??C) TempSrc: Forehead SpO2: 97% Weight: 269 lb 12.8 oz (122.4 kg) SUBJECTIVE: Chief Complaint Patient presents with ??? Congestion ??? Cough HPI: cough, carrillo, sub fever, ST X 1 wk Rapid flu neg Review of Systems All other systems reviewed and are negative. OBJECTIVE: Physical Exam Vitals signs and nursing note reviewed. Constitutional: Appearance: He is well-developed. HENT: Right Ear: External ear normal. Left Ear: External ear normal. Mouth/Throat: Pharynx: No oropharyngeal exudate (pnd, nasal discharge). Eyes: General: No scleral icterus. Conjunctiva/sclera: Conjunctivae normal. Pupils: Pupils are equal, round, and reactive to light. Cardiovascular: Rate and Rhythm: Normal rate and regular rhythm. Heart sounds: Normal heart sounds. Pulmonary: Effort: Pulmonary effort is normal. Breath sounds: Normal breath sounds. Abdominal: General: Bowel sounds are normal. Palpations: Abdomen is soft. Tenderness: There is no abdominal tenderness. Lymphadenopathy: Cervical: No cervical adenopathy. Assessment Diagnoses and all orders for this visit: Cough - POCT INFLUENZA A/B - benzonatate (TESSALON) 200 mg Oral Capsule; Take 1 Cap by mouth 3 times daily as needed for Coughfor up to 10 days. Dispense: 30 Cap; Refill: 0 Acute bacterial sinusitis - azithromycin (ZITHROMAX Z-LYNNE) 250 mg Oral Tablet; 2 tabs by mouth daily for 3 days Dispense: 6 Tab; Refill: 0 documented in this encounter Plan of Treatment Not on file documented as of this encounter Goals Goal Patient Goal Type Associated Problems Recent Progress Patient-Stated? Author Maintain a healthy diet, exercise regularly and maintain an ideal body weight General No Jami Glover, ROOM CLERK documented as of this encounter Procedures Procedure Name Priority Date/Time Associated Diagnosis Comments POCT INFLUENZA A/B Routine 12/06/2019 2: 40 PM EDT Cough documented in this encounter Results * POCT INFLUENZA A/B (12/06/2019 2:40 PM EDT) Influenza A Ag neg SEP OFFICE Influenza B Ag neg SEP OFFICE Lot Number [id number] SEP OFFICE Expiration Date 11/16/20 SEP OFFICE Flu Blue Control Line (positive internal control) Yes SEP OFFICE Clear Background (negative internal control) Yes Yes/No SEP OFFICE 12/06/2019 2:40 PM EDT August England MD POINT OF CARE TEST ORDERABLES Final Result SEP OFFICE documented in this encounter Visit Diagnoses Diagnosis Cough- Primary Acute bacterial sinusitis Acute sinusitis, unspecified documented in this encounter Care Teams Social Worker Relationship Specialty Start Date End Date August England MD [address] [place] [address] PCP - General Family Medicine 07/13/19 documented as of this encounter
--- OUTSIDE RECORDS SUMMARY | 2024-08-21 07:48 | XMS_ITS | Encounter Summary ---
Author Organization [place] [address] Care Team Providers Care Army Ranger Name Role Phone SomArnaldo pool Yee LUCIO Primary Care Provider [phone] Reason for Visit * Reason Comments Cough productive yellow mu cous, nasal congestion/runny nose, trouble sleeping. inhaler not working Encounter Details Date Type Department Care Team (Late st Contact Info) Description 11/16/2012 7:00 PM EST Office Visit [facility] [address] [place] [address] Noel Melendez MD [address] [place] [address] [address] [place] [address] Flu-like symptoms (Primary Dx); Influenza Social History Tobacco Use Types Packs/Day Years [...] Sign Reading Time Taken Comments Blood Pressure 146/84 11/16/2012 7:41 PM EST Pulse 106 11/16/2012 7:41 PM EST Temperature 37.8 ??C (100.1 ??F) 11/16/2012 7:[address] Respiratory Rate - - Oxygen Saturation - - Inhaled Oxygen Concentration - - Weight 106.1 kg (234 lb) 11/16/2012 7:41 PM EST Height 175.9 cm (5' 9.25 ) 11/16/2012 7:41 PM ES T Body Mass Index 34.31 11/16/2012 7:41 PM EST documented in this encounter Ordered Prescriptions Prescription Sig Dispense Quantity Refills Last Filled Start Date End Date oseltamivir (TAMIFLU) 75 mg capsuleIndications: Influenza Take 1 Cap by mouth 2 times daily for 5 days. 10 Cap 0 11/16/2012 11/21/2012 documented in this encounter Progress Notes * Noel Melendez MD - 11/16/2012 8:01 PM EST Subjective: Patient ID: Zi Johnson is a 27 y.o. male. HPI Breathing problem - wheezing, coughing, worse for past days. Also fevers. Worse since yesterday. Patients past medical, family and social histories were reviewed and updated. There were no changesexcept as noted. Review of Systems Constitutional: Positive for fever and chills. Respiratory: Positive for cough, shortness of breath and wheezing. Cardiovascular: Negative for chest pain. Gastrointestinal: Negative for nausea, vomiting and diarrhea. Objective: Filed Vitals: 11/16/12 1941 BP: 146/84 Pulse: 106 Temp: 100.1 ??F (37.8 ??C) Height: 5' 9.25 (1.759 m) Weight: 234 lb (106.142 kg) Body mass index is 34.31 kg/(m^2). Physical Exam Vitals reviewed. Constitutional: He is oriented to person, place, and time. He appears well- developed and well-nourished. No distress. HENT: Head: Normocephalic and atraumatic. Right Ear: External ear normal. Left Ear: External ear normal. Mouth/Throat: Oropharynx is clear and moist. No oropharyngeal exudate. Eyes: Conjunctivae and EOM are normal. Pupils are equal, round, and reactive to light. Right eye exhibits no discharge. Left eye exhibits no discharge. Neck: Normal range of motion. Neck supple. No tracheal deviation present. No thyromegaly present. Cardiovascular: Normal rate, regular rhythm and normal heart sounds. Exam reveals no gallop and no friction rub. No murmur heard. Pulmonary/Chest: Effort normal. No respiratory distress. He has decreased breath sounds. He has wheezes. He has no rales. He exhibits no tenderness. Abdominal: Soft. Bowel sounds are normal. He exhibits no distension and no mass. There is no tenderness. There is no rebound and no guarding. Musculoskeletal: Normal range of motion. He exhibits no edema and no tenderness. Lymphadenopathy: He has no cervical adenopathy. Neurological: He is alert and oriented to person, place, and time. Skin: Skin is warm. No rash noted. He is diaphoretic. No erythema. No pallor. Psychiatric: He has a normal mood and affect. His behavior is normal. Judgment and thought content normal. Assessment and Plan: Zi was seen today for cough. Diagnoses and associated orders for this visit: Flu-like symptoms - POCT Influenza A/B Influenza - oseltamivir (TAMIFLU) 75 mg capsule; Take 1 Cap by mouth 2 times daily for 5 days. documented in this encounter Plan of Treatment Not on file documented as of this encounter Procedures Procedure Name Priority Date/Time Associated Diagnosis Comments POCT INFLUENZA A/B Routine 11/16/2012 8: 11 PM EST Flu-like symptoms documented in this encounter Results * POCT INFLUENZA A/B (11/16/2012 8:11 PM EST) Influenza A Ag ++ SEP OFFICE Comment:+ Influenza B Ag SEP OFFICE Lot Number SEP OFFICE Expiration Date SEP OFFICE 11/16/2012 8:11 PM EST Noel Melendez MD POINT OF CARE TEST ORDERAB LES Final Result SEP OFFICE documented in this encounter Visit Diagnoses Diagnosis Flu-like symptoms- Primary Influenza with other respiratory manifestations Influenza Influenza with other respiratory manifestations documented in this encounter Care Teams Army Ranger Relationship Specialty Start Date End Date Aranldo Kearns DO [address] [place] [phone] PCP - General Internal Medicine 10/31/12 12/18/15 documented as of this encounter
--- OUTSIDE RECORDS SUMMARY | 2024-08-21 07:48 | XMS_ITS | Encounter Summary ---
Author Organization [place] [address] Care Team Providers Care Brim Stiffener Name Role Phone Unavailable Primary Care Provider Unavailabl e Encounter Details Date Type Department Care Team (Late st Contact Info) Description 06/25/2008 6:00 AM EDT - 06/25/2008 7:19 AM EDT Hospital Encounter HST E/D RED EDG Vini Alba MD [address] [place] [phone] Social History Tobacco Use Types Packs/Day [...]
--- OUTSIDE RECORDS SUMMARY | 2024-08-21 07:48 | XMS_ITS | Encounter Summary ---
Author Organization [place] [address] Care Team Providers Care Skilled Nursing Professional Name Role Phone Unavailable Primary Care Provider Unavailabl e Encounter Details Date Type Department Care Team (Late st Contact Info) Description 01/02/2010 11:57 PM EDT - 01/03/2010 3:21 AM EDT Hospital Encounter HST E/D [facility], [facility] [address] Lisa Madison MD [address] [place] [phone] Social History Tobacco Use Types Packs/Day Years Used Date Smoking Tobacco: Never Assessed Sex and Gender Information Value Date Recorded Sex Assigned at Not on file Legal Sex Male 6:04 PM EDT Gender Identity Not on file Sexual Orientation Not on file documented as of this encounter Progress Notes * Unknown, 07/30/2010 7:35 AM EDT * Unknown, 07/30/2010 7:35 AM EDT * Unknown, - 07/27/2010 6:35 AM EDT documented in this encounter Procedure Notes * Unknown, 07/30/2010 6:34 AM EDTAssociated Order(s): SCANNED LABS * Unknown, 07/30/2010 4:31 AM EDTAssociated Order(s): SCANNED RADIOLOGY REPORT * Unknown, U - 07/30/2010 4:16 AM EDTAssociated Order(s): SCANNED RADIOLOGY REPORT * Unknown, U - 07/29/2010 10:09 PM EDTAssociated Order(s): SCANNED RADIOLOGY REPORT * Unknown, U - 01/03/2010 12:00 AM EDTAssociated Order(s): SCANNED EKG documented in this encounter Nursing Notes * Unknown, U - 07/29/2010 11:03 AM EDT documented in this encounter ED Notes * Unknown, U - 07/30/2010 12:46 AM EDT * Unknown, 07/30/2010 12:46 AM EDT * Unknown, U - 01/03/2010 12:00 AM EDT documented in this encounter Plan of Treatment Scheduled Orders Name Type Priority Associated Diagnoses Orde r Schedule XR CHEST PA & LATERAL Imaging Routine Once for 1 Occurrences starting 01/03/2010 until 01/03/2010, 1 completed EK EKG REG Imaging Cardiology Routine Once f or 1 Occurrences starting 01/03/2010 until 01/03/2010, 1 completed documented as of this encounter Procedures Procedure Name Priority Date/Time Associated Diagnosis Comments SCANNED RADIOLOGY REPORT 07/30/2010 12:00 AM EDT SCANNED RADIOLOGY REPORT 07/30/2010 12:00 AM EDT SCANNED LABS 07/30/2010 12:00 AM EDT SCANNED RADIOLOGY REPORT 07/29/2010 12:00 AM EDT EK EKG REG Routine 01/03/2010 8:14 AM EDT TROPONIN-I STAT 01/03/2010 1:20 AM EDT D-DIMER STAT 01/03/2010 1:20 AM EDT XX CHEST PA & LATERAL Routine 01/03/2010 12:39 AM EDT SCANNED EKG 01/03/2010 12:00 AM EDT documented in this encounter Results * SCANNED LABS (07/30/2010 12:00 AM EDT) Narrative 07/30/2010 6:35 AM EDT Ordered by an unspecified provider. Transcriptions Unknown, U - 07/30/2010 6:34 AM EDT us U Unknown HEMATOLOGY ORDERABLES Final Resu lt * SCANNED RADIOLOGY REPORT (07/30/2010 12:00 AM EDT) Anatomical Region Laterality Modality Other Narrative 07/30/2010 4:31 AM EDT Ordered by an unspecified provider. Transcriptions Unknown, U - 07/30/2010 4:31 AM EDT us U Unknown IMG DIAGNOSTIC IMAGING ORDERABLE S Final Result * SCANNED RADIOLOGY REPORT (07/30/2010 12:00 AM EDT) Anatomical Region Laterality Modality Other Narrative 07/30/2010 4:17 AM EDT Ordered by an unspecified provider. Transcriptions Unknown, U - 07/30/2010 4:16 AM EDT us U Unknown IMG DIAGNOSTIC IMAGING ORDERABLE S Final Result * SCANNED RADIOLOGY REPORT (07/29/2010 12:00 AM EDT) Anatomical Region Laterality Modality Other Narrative 07/29/2010 10:10 PM EDT Ordered by an unspecified provider. Transcriptions Unknown, U - 07/29/2010 10:09 PM EDT us U Unknown IMG DIAGNOSTIC IMAGING ORDERABLE S Final Result * EK EKG REG (01/03/2010 8:14 AM EDT) Anatomical Region Laterality Modality Other 01/03/2010 8:14 AM EDT Narrative 01/04/2010 11:12 PM EDT Sinus arrhythmia Normal ECG Procedure Note Rivera Hong MD - 01/04/2010 Sinus arrhythmia Normal ECG us Lisa Madison MD [facility] HISTORICAL E dited Result - Final * D-DIMER (01/03/2010 1:20 AM EDT) D-Dimer <230 <230 ng/mL [facility] Comment: The cutoff for exclusion of deep vein thrombosis or pulmonary embolism is <230 ng/mL. ? This test has been clinically validated by the senior [employer] consultant for exclusion of deep vein thrombosis and pulmonary embolism and approved by the FDA. ?? The upper limit of normal range was determined by this laboratory as 290 ng/mL. ?? Blood specimen (specimen) 01/03/2010 1:20 AM EDT 01/03/2010 1:27 AM EDT us Lisa Madison MD HEMATOLOGY ORDERABLES Final Re sult [facility] [address] [place] [address] * TROPONIN-I (01/03/2010 1:20 AM EDT) Troponin-I <0.01 ng/mL [facility] Comment: Note: New reference ranges for high sensitivity Troponin I. Troponin Level ? Significance ?< 0.01 ng/mL ? Negative 0.01 - 0.06 ng/mL ?Detectable troponin of unknown significance ??>= 0.07 ?Possible myocardial injury Note: ??A variety of mechanisms may cause myocardial injury. ??The diagnosis of myocardial infarction depends both on elevated levels of troponin and on clinical data that support ischemia as a cause. ??It is not possible to reliably discriminate ischemic from nonischemic causes by a single cutoff level. ??However, a rising or falling pattern of troponin values is helpful in discriminating acute injury from chronic causes. Blood specimen (specimen) 01/03/2010 1:20 AM EDT 01/03/2010 1:27 AM EDT us Lisa Madison MD CHEMISTRY ORDERABLES Final Res ult [facility] [address] [place] [address] * XR CHEST PA & LATERAL (01/03/2010 12:39 AM EDT) Anatomical Region Laterality Modality Other 01/03/2010 12:3 9 AM EDT Narrative 01/03/2010 2:44 PM EDT [facility] chest, 01/03/2010. History- Chest pain. FINDINGS- The heart is normal in size. ??The lungs are clear of infiltrate. ?? No abnormal mediastinal mass or adenopathy is seen. There is no pleural fluid. IMPRESSION- Normal Chest ? Automation Developer- JASPER BORJA ? Reading Physician- JONO JARVIS ? Released Date Time- 01/03/10 1445 Procedure Note Jono Jarvis - 01/03/2010 [facility] chest, 01/03/2010. History- Chest pain. FINDINGS- The heart is normal in size. The lungs are clear of infiltrate. No abnormal mediastinal mass or adenopathy is seen. There is no pleural fluid. IMPRESSION- Normal Chest Automation Developer- JASPER Villatoro Physician- JONO JARVIS MD Released Date Time- 01/03/10 1445 us Lisa Madison MD IMG [facility] nal Result * SCANNED EKG (01/03/2010 12:00 AM EDT) Anatomical Region Laterality Modality Other Narrative 01/03/2010 12:00 AM EDT Ordered by an unspecified provider. Transcriptions Unknown, U - 01/03/2010 12:00 AM EDT us U Unknown IMG ECG ORDERABLES Final Result documented in this encounter Visit Diagnoses Not on filedocumented in this encounter
--- OUTSIDE RECORDS SUMMARY | 2024-08-21 07:48 | XMS_ITS | Encounter Summary ---
Author Organization [place] [address] Care Team Providers Care Machine Room Engineer Name Role Phone Unavailable Primary Care Provider Unavailabl e Encounter Details Date Type Department Care Team (Late st Contact Info) Description 12/18/2008 5:07 PM EDT - 12/18/2008 7:38 PM EDT Hospital Encounter HST E/D BLUE EDG Brittani Watkins MD [address] [place] [phone] Social History Tobacco Use Types Packs/Day [...]
--- OUTSIDE RECORDS SUMMARY | 2024-08-21 07:48 | XMS_ITS | Encounter Summary ---
Author Organization [facility] [place] [address] Care Team Providers Care Professor Of Literature Name Role Phone Unavailable Primary Care Provider Unavailabl e Reason for Visit * Reason Comments Tailbone Pain has cyst on tailbone that hurting has tried to yung it @ home Encounter Details Date Type Department Care Team (Late st Contact Info) Description 05/28/2012 7:25 AM EDT - 05/28/2012 9:41 AM EDT Emergency [facility] [place] [address] Angel Cagle MD [address] [place] [address] [place] [address] Pilonidal cyst Discharge Disposition: Home or Self Care Social [...] Sign Reading Time Taken Comments Blood Pressure 120/78 05/28/2012 9:35 AM EDT Pulse 72 05/28/2012 9:35 AM EDT Temperature 37 ??C (98.6 ??F) 05/28/2012 7:02 AM EDT Respiratory Rate 18 05/28/2012 9:35 AM EDT Oxygen Saturation - - Inhaled Oxygen Concentration - - Weight 104.3 kg (230 lb) 05/28/2012 7:02 AM EDT Height 175.3 cm (5' 9 ) 05/28/2012 7:02 AM EDT Body Mass Index 33.97 05/28/2012 7:02 AM EDT documented in this encounter Discharge Instructions * Attachments The following attachments cannot be sent through Care Everywhere. * PILONIDAL CYST (SYRIAN) * SITZ BATH (SYRIAN) documented in this encounter Medications at Time of Discharge acetaminophen (TYLENOL) 325 mg tablet Take by mouth every 4 hours as needed for Pain. 10/31/2012 cephALEXin (KEFLEX) 500 mg capsule Take 1 Cap by mouth 4 times daily for 40 doses. 40 Cap 0 05/28/2012 06/07/2012 HYDROcodone-aceta minophen (VICODIN) 5-500 mg per tablet Take 1 Tab by mouth every 4 hours as needed for Pain for 15 doses. 15 Tab 0 05/28/2012 06/04/2012 documented as of this encounter Ordered Prescriptions Prescription Sig Dispense Quantity Refills Last Filled Start Date End Date cephALEXin (KEFLEX) 500 mg capsule Take 1 Cap by mouth 4 times daily for 40 doses. 40 Cap 0 05/28/2012 06/07/2012 HYDROcodone-acetam inophen (VICODIN) 5-500 mg per tablet Take 1 Tab by mouth every 4 hours as needed for Pain for 15 doses. 15 Tab 0 05/28/2012 06/04/2012 documented in this encounter Discharge Disposition Disposition Code Departure Means Destination Home or Self Alf documented in this encounter Progress Notes * Unknown, Unknown - 05/28/2012 8:02 AM EDT * Unknown, Unknown - 05/28/2012 7:02 AM EDT * Unknown, Unknown - 05/28/2012 12:00 AM EDT documented in this encounter ED Notes * Hina Guzman RN - 05/28/2012 9:35 AM EDT Home awake alert after md turner and tx * Angel Cagle MD - 05/28/2012 9:14 AM EDTAssociated Order(s): INCISION AND DRAINAGE Chief Complaint Patient presents with ??? Tailbone Pain has cyst on tailbone that hurting has tried to yung it @ home HPI Comments: The patient is a 27-year-old male with a history of a pilonidal cyst, asthma who presents to the emergency Department with complaints of tailbone pain, swelling, and redness. He says over the past week he's developed swelling and tenderness over the area of his prior pilonidal abscess/cyst. He does not have a family doctor so he has attempted to drain the lesion himself. He says he's been squeezing and poking it without any excess. Stomach symptoms such as general malaise, fevers,nausea or vomiting. Past records reviewed The history is provided by the patient. Allergies Allergen Reactions ??? Ceclor (Cefaclor) ??? Penicillins Home Medications: Prior to Admission medications Medication Sig Start Date End Date Taking? Authorizing Provider HYDROcodone-acetaminophen (VICODIN) 5-500 mg per tablet Take 1 Tab by mouth every 4 hours as neededfor Pain for 15 doses. 05/28/12 06/04/12 Angel Cagle MD cephALEXin (KEFLEX) 500 mg capsule Take 1 Cap by mouth 4 times daily for 40 doses. 05/28/12 06/07/12 Angel Cagle MD acetaminophen (TYLENOL) 325 mg tablet Take by mouth every 4 hours as needed for Pain. Provider, Historical Past Medical History: Past Medical History Diagnosis Date ??? Asthma ??? Meningitis ??? Seizures fibril seizuers ??? PTSD (post-traumatic stress disorder) ??? TBI (traumatic brain injury) Social History: reports that he has never smoked. He has never used smokeless tobacco. He reports that he does not drink alcohol or use illicit drugs. Family History: No family history on file. Surgical History: No past surgical history on file. Review of Systems All other systems reviewed and are negative. Blood pressure 138/92, pulse 78, temperature 98.6 ??F (37 ??C), temperature source Oral, resp. rate16, height 5' 9 (1.753 m), weight 230 lb (104.327 kg). Physical Exam Nursing note and vitals reviewed. Constitutional: He appears well-developed. HENT: Head: Normocephalic. Eyes: Pupils are equal, round, and reactive to light. Neck: Normal range of motion. Neck supple. Cardiovascular: Normal rate and regular rhythm. Pulmonary/Chest: Effort normal and breath sounds normal. Abdominal: Soft. Bowel sounds are normal. Musculoskeletal: He has a 2 cm fluctuant abscess over the coccyx with several centimeters of surrounding erythema and induration. There is very tender to palpation. INCISION AND DRAINAGE Performed by: ANGEL CAGLE Authorized by: ANGEL CAGLE Consent given by: patient Patient understanding: patient states understanding of the procedure being performed Type: pilonidal cyst Local anesthetic: lidocaine 1% without epinephrine Scalpel size: 11 Drainage: purulent Packing material: 1/4 in iodoform gauze Comments: 1 cm incision made. Small amount of purulent material drained Radiology/EKG/Labs: Results for orders placed during the hospital encounter of 05/28/12 POCT GLUCOSE Component Value Range Glucose 110 60 - 200 (mg/dL) Lot Number Expiration Date SeriAl # Meter ED Course: Appropriate laboratory and radiology studies reviewed Infected pilonidal cyst. Abscess was incised and drained. He be discharged with Keflex and Vicodin. [facility] report obtained and reviewed. [facility] session number: [id number] After obtaining a complete medical history and conducting a physical examination of the patient, the risks of prescribing or dispensing controlled substances to the patient (including non-treatment or other treatment) were considered. I have discussed the risks/benefits of the use of controlled substances with the patient (or patient's sales representative girls' apparel), including the risk of tolerance and dependence. A written consent for the treatment was obtained. After reviewing the available information I consider it medically appropriate to administer/prescribe meications as ordered. Angel Cagle MD ED Clinical Impression: Infected pilonidal cyst Critical Care time Condition at Discharge/Transfer from Department: Angel Zamora MD 05/28/12922 * Mag Mix RN - 05/28/2012 7:28 AM EDT States h/o recurrent pilonidal cyst documented in this encounter Miscellaneous Notes * Miscellaneous - Unknown, Unknown - 05/28/2012 12:00 AM EDT documented in this encounter Plan of Treatment Not on file documented as of this encounter Procedures Procedure Name Priority Date/Time Associated Diagnosis Comments INCISION AND DRAINAGE Routine 05/28/2012 9:23 AM EDT POCT GLUCOSE STAT 05/28/2012 8:24 AM EDT documented in this encounter Results * INCISION AND DRAINAGE (05/28/2012 9:23 AM EDT) Narrative [facility] - 05/28/2012 9:23 AM EDT Angel Cagle MD ? 05/28/2012 ??9:23 AM Chief Complaint Patient presents with ? ? Tailbone Pain ??has cyst on tailbone that hurting has tried to yung it @ home HPI Comments: The patient is a 27-year-old male with a history of a pilonidal cyst, asthma who presents to the emergency Department with complaints of tailbone pain, swelling, and redness. ??He says over the past week he's developed swelling and tenderness over the area of his prior pilonidal abscess/cyst. ??He does not have a family doctor so he has attempted to drain the lesion himself. ?? He says he's been squeezing and poking it without any excess. ?? Stomach symptoms such as general malaise, fevers, nausea or vomiting. Past records reviewed The history is provided by the patient. Allergies Allergen Reactions ? ? Ceclor (Cefaclor) ? Penicillins ?? Home Medications: Prior to Admission medications ?? Medication Sig Start Date End Date Taking? Authorizing Provider HYDROcodone-acetaminophen (VICODIN) 5-500 mg per tablet Take 1 Tab by mouth every 4 hours as needed for Pain for 15 doses. 05/28/12 06/04/12 ??Angel Cagle MD cephALEXin (KEFLEX) 500 mg capsule Take 1 Cap by mouth 4 times daily for 40 doses. 05/28/12 06/07/12 ??Angel Cagle MD acetaminophen (TYLENOL) 325 mg tablet Take ??by mouth every 4 hours as needed for Pain. ?Provider, Historical Past Medical History: Past Medical History Diagnosis Date ? ? Asthma ? Meningitis ? 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 ? PTSD (post-traumatic stress disorder) ? TBI (traumatic brain injury) ?? Social History: ??reports that he has never smoked. He has never used smokeless tobacco. He reports that he does not drink alcohol or use illicit drugs. Family History: No family history on file. Surgical History: No past surgical history on file. Review of Systems All other systems reviewed and are negative. Blood pressure 138/92, pulse 78, temperature 98.6 ??F (37 ??C), temperature source Oral, resp. rate 16, height 5' 9 (1.753 m), weight 230 lb (104.327 kg). Physical Exam Nursing note and vitals reviewed. Constitutional: He appears well-developed. HENT: Head: Normocephalic. Eyes: Pupils are equal, round, and reactive to light. Neck: Normal range of motion. Neck supple. Cardiovascular: Normal rate and regular rhythm. ?? Pulmonary/Chest: Effort normal and breath sounds normal. Abdominal: Soft. Bowel sounds are normal. Musculoskeletal: ? He has a 2 cm fluctuant abscess over the coccyx with several centimeters of surrounding erythema and induration. ??There is very tender to palpation. INCISION AND DRAINAGE Performed by: ANGEL CAGLE Authorized by: ANGEL CAGLE Consent given by: patient Patient understanding: patient states understanding of the procedure being performed Type: pilonidal cyst Local anesthetic: lidocaine 1% without epinephrine Scalpel size: 11 Drainage: purulent Packing material: 09/30 in iodoform gauze Comments: 1 cm incision made. ??Small amount of purulent material drained Radiology/EKG/Labs: Results for orders placed during the hospital encounter of 05/28/12 POCT GLUCOSE ?Component Value Range Glucose 110 ??60 - 200 (mg/dL) Lot Number ? Expiration Date ? SeriAl # ? Meter ? ED Course: ?? Appropriate laboratory and radiology studies reviewed Infected pilonidal cyst. ??Abscess was incised and drained. ??He be discharged with Keflex and Vicodin. [facility] report obtained and reviewed. ??[facility] session number: [id number] After obtaining a complete medical history and conducting a physical examination of the patient, ??the ??risks of prescribing or dispensing controlled substances to the patient (including non-treatment or other treatment) were considered. I have discussed the risks/benefits of the use of controlled substances with the patient (or patient's sales representative girls' apparel), including the risk of tolerance and dependence. ??A written consent for the treatment was obtained. After reviewing the available information I consider it medically appropriate to administer/prescribe meications as ordered. Angel Cagle MD ED Clinical Impression: ?? Infected pilonidal cyst Critical Care time Condition at Discharge/Transfer from Department: Stable Procedure Note Angel Cagle MD - 05/28/2012 9:14 AM EDT Chief Complaint Patient presents with ? ? Tailbone Pain has cyst on tailbone that hurting has tried to yung it @ home HPI Comments: The patient is a 27-year-old male with a history of apilonidal cyst, asthma who presents to the emergency Department withcomplaints of tailbone pain, swelling, and redness. He says over the pastweek he's developed swelling and tenderness over the area of his priorpilonidal abscess/cyst. He does not have a family doctor so he hasattempted to drain the lesion himself. He says he's been squeezing andpoking it without any excess. Stomach symptoms such as general malaise,fevers, nausea or vomiting. Past records reviewed The history is provided by the patient. Allergies Allergen Reactions ? ? Ceclor (Cefaclor) ? ? Penicillins Home Medications: Prior to Admission medications Medication Sig Start Date End Date Taking? Authorizing Provider HYDROcodone-acetaminophen (VICODIN) 5-500 mg per tablet Take 1 Tab bymouth every 4 hours as needed for Pain for 15 doses. 05/28/12 06/04/12Angel Cagle MD cephALEXin (KEFLEX) 500 mg capsule Take 1 Cap by mouth 4 times daily for40 doses. 05/28/12 06/07/12 Angel Cagle MD acetaminophen (TYLENOL) 325 mg tablet Take by mouth every 4 hours asneeded for Pain. Provider, Historical Past Medical History: Past Medical History Diagnosis Date ? ? Asthma ? ? Meningitis ? ? Seizures fibril seizuers ? ? PTSD (post-traumatic stress disorder) ? ? TBI (traumatic brain injury) Social History: reports that he has never smoked. He has never usedsmokeless tobacco. He reports that he does not drink alcohol or useillicit drugs. Family History: No family history on file. Surgical History: No past surgical history on file. Review of Systems All other systems reviewed and are negative. Blood pressure 138/92, pulse 78, temperature 98.6 ??F (37 ??C), temperaturesource Oral, resp. rate 16, height 5' 9 (1.753 m), weight 230 lb (104.327kg). Physical Exam Nursing note and vitals reviewed. Constitutional: He appears well-developed. HENT: Head: Normocephalic. Eyes: Pupils are equal, round, and reactive to light. Neck: Normal range of motion. Neck supple. Cardiovascular: Normal rate and regular rhythm. Pulmonary/Chest: Effort normal and breath sounds normal. Abdominal: Soft. Bowel sounds are normal. Musculoskeletal: He has a 2 cm fluctuant abscess over the coccyx with severalcentimeters of surrounding erythema and induration. There is very tenderto palpation. INCISION AND DRAINAGE Performed by: ANGEL CAGLE Authorized by: ANGEL CAGLE Consent given by: patient Patient understanding: patient states understanding of the procedure beingperformed Type: pilonidal cyst Local anesthetic: lidocaine 1% without epinephrine Scalpel size: 11 Drainage: purulent Packing material: 1/4 in iodoform gauze Comments: 1 cm incision made. Small amount of purulent material drained Radiology/EKG/Labs: Results for orders placed during the hospital encounter of 05/28/12 POCT GLUCOSE Component Value Range Glucose 110 60 - 200 (mg/dL) Lot Number Expiration Date SeriAl # Meter ED Course: Appropriate laboratory and radiology studies reviewed Infected pilonidal cyst. Abscess was incised and drained. He bedischarged with Keflex and Vicodin. [facility] report obtained and reviewed. [facility] session number: [id number] After obtaining a complete medical history and conducting a physicalexamination of the patient, the risks of prescribing or dispensingcontrolled substances to the patient (including non-treatment or othertreatment) were considered. I have discussed the risks/benefits of the useof controlled substances with the patient (or patient's sales representative girls' apparel),including the risk of tolerance and dependence. A written consent for thetreatment was obtained. After reviewing the available information Iconsider it medically appropriate to administer/prescribe meications asordered. Angel Cagle MD ED Clinical Impression: Infected pilonidal cyst Critical Care time Condition at Discharge/Transfer from Department: Angel Zamora MD 05/28/12 0923 Angel Cagle MD PROCEDURE/MINOR SURGICAL OR DERABLES Final Result Performing Organization Address [facility] Co de Phone Number [facility] [address] [place] [address] * POCT GLUCOSE (05/28/2012 8:24 AM EDT) Glucose 110 60 - 200 mg/dL [facility] Lot Number [facility] Expiration Date [facility] SeriAl # [facility] Meter [facility] 05/28/2012 8:24 AM EDT Angel Cagle MD POINT OF CARE TEST ORDERABL ES Final Result Performing Organization Address [facility] de Phone Number [facility] [address] [place] [address] documented in this encounter Visit Diagnoses Diagnosis Pilonidal cyst Pilonidal cyst without mention of abscess Pilonidal cyst with abscess documented in this encounter Administered Medications Inactive Administered Medications - up to 1 most recent administrations Medication Order MAR Action Action Date Dose Rate Site lidocaine 10 mg/mL (1 %) injection (PF) 100 mg 100 mg (10 mL), Infiltration, ONCE, 1 dose, On 05/28/12 at 0815 Given 05/28/2012 8:54 AM EDT 100 mg documented in this encounter Active and Recently Administered Medications Times are shown in EDT. Scheduled Medication Order 05/26/2012 05/27/2012 05/28/2012 lidocaine 10 mg/mL (1 %) injection (PF) 100 mg (COMPLETED) 100 mg (10 mL), Infiltration, ONCE, 1 dose, On 05/28/12 at 0815 0854 (Given - Provid er: Hina Guzman RN - Comment: injected per md) documented in this encounter Orders Medications Ordered That Apolinar ht Not Have Been Administered Count Last Ordered Date First Ordered Date lidocaine 10 mg/mL (1 %) inj ection (PF) 100 mg 1 05/28/2012 documented in this encounter
--- OUTSIDE RECORDS SUMMARY | 2024-08-21 07:49 | XMS_ITS | Encounter Summary ---
Author Organization [place] [address] Care Team Providers Care Supply Requirements Officer Name Role Phone Unavailable Primary Care Provider Unavailabl e Encounter Details Date Type Department Care Team (Late st Contact Info) Description 01/20/2001 3:15 PM EDT - 01/20/2001 4:15 PM EDT Hospital Encounter [facility] Generic, Historical Provider [...]
--- OUTSIDE RECORDS SUMMARY | 2024-08-21 07:49 | XMS_ITS | Encounter Summary ---
Author Organization [place] [address] Care Team Providers Care Single Fold Machine Operator Name Role Phone Unavailable Primary Care Provider Unavailabl e Encounter Details Date Type Department Care Team (Late st Contact Info) Description 05/08/1998 4:37 PM EDT - 05/08/1998 11:59 PM EDT Hospital Encounter [facility] Social History Tobacco Use Types Packs/Day Years [...]
--- OUTSIDE RECORDS SUMMARY | 2024-08-21 07:49 | XMS_ITS | Encounter Summary ---
Author Organization [place] [address] Care Team Providers Care Quality Improvement Coordinator Name Role Phone Unavailable Primary Care Provider Unavailabl e Encounter Details Date Type Department Care Team (Late st Contact Info) Description 12/08/2000 Hospital Encounter [facility] Generic, Historical Provider [...]
--- OUTSIDE RECORDS SUMMARY | 2024-08-21 07:49 | XMS_ITS | Encounter Summary ---
Author Organization [place] [address] Care Team Providers Care Stain Wiper Name Role Phone Unavailable Primary Care Provider Unavailabl e Encounter Details Date Type Department Care Team (Late st Contact Info) Description 05/03/2000 10:31 PM EDT Hospital Encounter [facility] Generic, [...]
--- OUTSIDE RECORDS SUMMARY | 2024-08-21 07:49 | XMS_ITS | Encounter Summary ---
Author Organization [place] [address] Care Team Providers Care Radio Recorder Name Role Phone Unavailable Primary Care Provider Unavailabl e Encounter Details Date Type Department Care Team (Late st Contact Info) Description 12/20/1997 7:51 AM EST - 12/20/1997 8:30 AM EST Hospital Encounter [facility] Social History Tobacco Use Types Packs/Day Years [...]
--- OUTSIDE RECORDS SUMMARY | 2024-08-21 07:49 | XMS_ITS | Encounter Summary ---
Author Organization [place] [address] Care Team Providers Care Manager Pool Name Role Phone Unavailable Primary Care Provider Unavailabl e Encounter Details Date Type Department Care Team (Late st Contact Info) Description 01/21/2001 10:35 PM EDT - 01/22/2001 12:05 AM EDT Hospital Encounter [facility] Generic, Historical [...]
--- OUTSIDE RECORDS SUMMARY | 2024-08-21 07:49 | XMS_ITS | Encounter Summary ---
Author Organization [place] [address] Care Team Providers Care Manufacturing Sales Representative Name Role Phone Unavailable Primary Care Provider Unavailabl e Encounter Details Date Type Department Care Team (Late st Contact Info) Description 09/10/2000 Hospital Encounter [facility] Generic, Historical Provider [...]
--- OUTSIDE RECORDS SUMMARY | 2024-08-21 07:49 | XMS_ITS | Encounter Summary ---
Author Organization [place] [address] Care Team Providers Care Office Auditor Name Role Phone Unavailable Primary Care Provider Unavailabl e Encounter Details Date Type Department Care Team (Late st Contact Info) Description 11/29/2000 Hospital Encounter [facility] Generic, Historical Provider [...]
--- OUTSIDE RECORDS SUMMARY | 2024-08-21 07:49 | XMS_ITS | Encounter Summary ---
Author Organization [place] [address] Care Team Providers Care Vocational Guidance Counselor Name Role Phone Unavailable Primary Care Provider Unavailabl e Encounter Details Date Type Department Care Team (Late st Contact Info) Description 02/14/1998 2:44 AM EDT - 02/14/1998 10:03 AM EDT Hospital Encounter [facility] [...]
--- OUTSIDE RECORDS SUMMARY | 2024-08-21 07:49 | XMS_ITS | Encounter Summary ---
Author Organization [place] [address] Care Team Providers Care Strategic Debriefing Officer Name Role Phone Unavailable Primary Care Provider Unavailabl e Encounter Details Date Type Department Care Team (Late st Contact Info) Description 03/27/2000 1:32 AM EDT - 03/27/2000 3:25 AM EDT Hospital Encounter [facility] [...]
--- OUTSIDE RECORDS SUMMARY | 2024-08-21 07:49 | XMS_ITS | Encounter Summary ---
Author Organization [place] [address] Care Team Providers Care Calender Tender Name Role Phone Unavailable Primary Care Provider Unavailabl e Encounter Details Date Type Department Care Team (Late st Contact Info) Description 01/09/1998 10:57 AM EDT - 01/09/1998 11:59 PM EDT Hospital Encounter [facility] SURGERY [...]
[2024-08-21] MEDS: ALBUTEROL 0.083% 2.5 MG/3 ML NEB IH (08:15)
== END 2024-08-21 23:59 | disposition home or self-care (01) ==
LOC: RT 07:46
PROVIDERS: PCP Chiropractor; Visit Provider Chiropractor
DX: J45.909 Unspecified asthma, uncomplicated (principal)
CPT/HCPCS: 94060; J7613